=== PATIENT | male | born 1960 | race Caucasian/White ===

== ENCOUNTER 2018-03-20 11:48 | Emergency (ER) | payer BC ==
[2018-03-20 13:25] LABS: Absolute Lymphocytes (CBC) 0.6 K/uL (0.7-4.9); Absolute Monocytes 0.6 K/uL (0.1-1.3); Absolute Neutrophil 2.1 K/uL (1.8-8.0); Basophils % 0.7 % (0-1.3); Eosinophils % 5.3 % (0-4.4); Hematocrit 38.2 % (39.6-49.0); Lymphocytes % 16.9 % (15.3-44.8); MCH 32.6 pg (27.0-35.0); MCV 97.8 fL (80-100); MPV 9.5 fL (7.6-11.3); Monocytes % 16.1 % (3.3-12.3); RBC Red Blood Cell Count 3.91 M/uL (4.33-5.43)
[2018-03-20 13:50] LABS: Albumin 2.7 g/dL (3.4-5.0); Bilirubin Total 0.5 mg/dL (0.2-1.0); Potassium 3.9 mmol/L (3.5-5.1)
--- NOTE | 2018-03-20 13:52 | RAD REPORT ---
EXAM DESCRIPTION: RAD - Foot Left 3 View - 03/20/2018 1:38 pm CLINICAL HISTORY: Left Foot pain FINDINGS: A lucency is present within the second proximal phalanx suspicious for a nondisplaced frac ture. No dislocation is noted. The bones are osteoporotic
[2018-03-20 14:09] LABS: Blood Morphology Comment NOT SEEN (NOT SEEN); Platelet Estimate DECR; Urine White Blood Cell Casts OK
--- NOTE | 2018-03-20 14:53 | ER ---
Nurse's Notes [facility] Name: Vidal Monson Age: 57 yrs Sex: Male : 1960 Arrival Date: 03/20/2018 Time: 11:52 Bed 14 Private MD: Elmer Flynn Diagnosis: Left 4th proximal toe fracture Presentation: 03/20 11:54 Presenting complaint: Patient states: left 2nd toe is "purple" started yesterday. c/o sv left foot swelling. Pt reports he went back to work after 4 months and was wearing steel toe boots. Transition of care: patient was not received from another setting of care. Onset of symptoms was March 19, 2018. Risk Assessment: Do you want to hurt yourself or someone else? Patient reports no desire to harm self or others. Care prior to arrival: None. 11:54 Method Of Arrival: Ambulatory sv 11:54 Acuity: JO 3 sv 14:26 Initial Sepsis Screen: Does the patient meet any 2 criteria? No. Patient's initial em sepsis screen is negative. Does the patient have a suspected source of infection? No. Patient's initial sepsis screen is negative. Historical: - Allergies: 11:58 tramadol; sv - Home Meds: 11:58 Lyrica Oral [Active]; Insulin: Lantus Sub-Q [Active]; hydromorphone 2 mg Oral tab 1 tab sv every 6 hours [Active]; valsartan 160 mg oral tab 1 tab once daily [Active]; 11:59 Celebrex Oral [Active]; Protonix Oral [Active]; sv - PMHx: 11:58 liver cancer; Diabetes - IDDM; sv 11:59 GERD; sv - PSHx: 11:58 mass removed from abdomen; sv - Immunization history:: Adult Immunizations up to date. - Social history:: Smoking status: Patient/guardian denies using tobacco, the patient reports quitting approximately 4 years ago. - Ebola Screening: : No symptoms or risks identified at this time. Screenin:17 Abuse screen: Denies threats or abuse. Nutritional screening: No deficits noted. em Tuberculosis screening: No symptoms or risk factors identified. Fall Risk None identified. Assessment: 12:27 General: Appears in no apparent distress. comfortable, Behavior is calm, cooperative. em Pain: Complains of pain in plantar aspect of left second toe Pain currently is 5 out of 10 on a pain scale. Neuro: Level of Consciousness is awake, alert, obeys commands, Oriented to person, place, time, situation. Cardiovascular: Capillary refill < 3 seconds Patient's skin is warm and dry. Respiratory: Airway is patent Respiratory effort is even, unlabored, Respiratory pattern is regular, symmetrical. GI: No signs and/or symptoms were reported involving the gastrointestinal system. : No signs and/or symptoms were reported regarding the genitourinary system. EENT: No signs and/or symptoms were reported regarding the EENT system. Derm: Skin is intact, Skin is pale. Musculoskeletal: Range of motion: intact in all extremities, Swelling present in left second toe. 12:30 Reassessment: Patient appears in no apparent distress at this time. I agree with the iw above assessment by Elijah Reyes LVN. 13:25 Reassessment: Patient appears in no apparent distress at this time. Patient and/or em family updated on plan of care and expected duration. Pain level reassessed. Patient is alert, oriented x 3, equal unlabored respirations, skin warm/dry/pink. 14:54 Reassessment: Patient appears in no apparent distress at this time. Patient and/or em family updated on plan of care and expected duration. Pain level reassessed. Patient is alert, oriented x 3, equal unlabored respirations, skin warm/dry/pink. Patient states symptoms have improved. Vital Signs: 11:59 BP 155 / 105; Pulse 46; Resp 18; Temp 97.9; Pulse Ox 95% on R/A; Weight 115.21 kg; sv Height 6 ft. 1 in. (185.42 cm); Pain 5/10; 12:50 BP 145 / 75; Pulse 78; Resp 18; Pulse Ox 95% on R/A; em 14:28 BP 170 / 92; Pulse 87; Resp 16; Pulse Ox 97% on R/A; Pain 5/10; em 11:59 Body Mass Index 33.51 (115.21 kg, 185.42 cm) sv ED Course: 11:52 Patient arrived in ED. mr 11:52 Elmer Flynn MD is Private Physician. mr 11:56 Triage completed. sv 12:00 Arm band placed on left wrist. sv 12:13 Tee Kathleen PA is PHCP. jmm 12:13 Mart Barros MD is Attending Physician. [facility] 13:17 Elijah Reyes LVN is Primary Nurse. em 13:18 Patient has correct armband on for positive identification. Placed in gown. Bed in low em position. Call light in reach. Side rails up X 1. Adult w/ patient. 13:18 Initial lab(s) drawn, by me, sent to lab. Inserted saline lock: 20 gauge in left em forearm, using aseptic technique. Blood collected. 13:37 X-ray completed. Portable x-ray completed in exam room. Patient tolerated procedure ml well. 13:39 Foot Left 3 View XRAY In Process Unspecified. EDMS 14:52 Elmer Flynn MD is Referral Physician. [facility] 14:55 No provider procedures requiring assistance completed. em 15:05 IV discontinued, intact, bleeding controlled, No redness/swelling at site. Pressure em dressing applied. Administered Medications: No medications were administered Outcome: 14:53 Discharge ordered by MD. m 15:05 Discharged to home ambulatory, with family. em 15:05 Condition: good 15:05 Discharge instructions given to patient, family, Instructed on discharge instructions, follow up and referral plans. medication usage, Demonstrated understanding of instructions, follow-up care, medications, Prescriptions given X 1. 15:06 Patient left the ED. em Signatures: Dispatcher [employer] Fabiola Escalante, RN Tee Lopez PA PA jmm Rivera, Maria mr Elijah Reyes LVN LVN em Erin Jaeger, Radha Kahn RN
--- NOTE | 2018-03-20 14:54 | EDPHYS ---
Physician Documentation [facility] Name: Vidal Monson Age: 57 yrs Sex: Male : 1960 Arrival Date: 03/20/2018 Time: 11:52 Bed 14 Private MD: Elmer Flynn ED Physician Mart Barors HPI: 03/20 14:04 This 57 yrs old Male presents to ER via Ambulatory with complaints of Feet jmm Swelling. 14:04 The complaints affect the plantar aspect of left second toe. jmm 14:04 Onset: The symptoms/episode began/occurred today. Modifying factors: The symptoms are jmm alleviated by nothing, the symptoms are aggravated by nothing. Associated signs and symptoms: Pertinent negatives: fever. This is a 57 year old male with a history of liver cancer and DM that presents to the ED with swelling and redness to the left 2nd toe. Patient states that he worked in [employer] yesterday. Patient denies known injury but states that his feet are numb from preexisting neuropathy. The patient denies fever. The patient is currently being treated with immunotherapy for Liver Cancer. Most recent dose was this past Friday. Patient has no other complaints. . Historical: - Allergies: 11:58 tramadol; sv - Home Meds: 11:58 Lyrica Oral [Active]; Insulin: Lantus Sub-Q [Active]; hydromorphone 2 mg Oral tab 1 tab sv every 6 hours [Active]; valsartan 160 mg oral tab 1 tab once daily [Active]; 11:59 Celebrex Oral [Active]; Protonix Oral [Active]; sv - PMHx: 11:58 liver cancer; Diabetes - IDDM; sv 11:59 GERD; sv - PSHx: 11:58 mass removed from abdomen; sv - Immunization history:: Adult Immunizations up to date. - Social history:: Smoking status: Patient/guardian denies using tobacco, the patient reports quitting approximately 4 years ago. - Ebola Screening: : No symptoms or risks identified at this time. ROS: 14:04 Constitutional: Negative for fever, chills, and weight loss, Cardiovascular: Negative jmm for chest pain, palpitations, and edema, Respiratory: Negative for shortness of breath, cough, wheezing, and pleuritic chest pain, Abdomen/GI: Negative for abdominal pain, nausea, vomiting, diarrhea, and constipation, Back: Negative for injury and pain. 14:04 MS/extremity: Positive for erythema. 14:04 Skin: Positive for erythema. 14:04 Neuro: Negative for weakness. 14:04 All other systems are negative. Exam: 14:04 Constitutional: This is a well developed, well nourished patient who is awake, alert, jmm and in no acute distress. 14:04 Cardiovascular: Rate: normal. 14:04 Respiratory: the patient does not display signs of respiratory distress, Respirations: normal. 14:04 Abdomen/GI: Inspection: abdomen appears normal. 14:04 Back: ROM is normal. 14:04 Musculoskeletal/extremity: ROM: intact in all extremities, erythema noted to the left 2nd toe with ecchymosis noted at the base. < 2 sec dist cap refill appreciated, full dorsalis pedis pulse, NVI. 14:04 Skin: erythema is noted to the left 2nd toe. 14:04 Neuro: Orientation: is normal, Mentation: is normal, Memory: is normal. 14:04 Psych: Behavior/mood is pleasant, cooperative. Vital Signs: 11:59 BP 155 / 105; Pulse 46; Resp 18; Temp 97.9; Pulse Ox 95% on R/A; Weight 115.21 kg; sv Height 6 ft. 1 in. (185.42 cm); Pain 5/10; 12:50 BP 145 / 75; Pulse 78; Resp 18; Pulse Ox 95% on R/A; em 14:28 BP 170 / 92; Pulse 87; Resp 16; Pulse Ox 97% on R/A; Pain 5/10; em 11:59 Body Mass Index 33.51 (115.21 kg, 185.42 cm) sv Procedures: 14:04 Splinting: Splint applied to left foot using orthroshoe. applied by nurse. Examined by santo me, post splint application: neurovascular intact, 2+ distal pulses palpable, brisk capillary refill noted, Patient tolerated well. MDM: 12:56 Patient medically screened. [facility] 14:04 Data reviewed: vital signs, nurses notes, lab test result(s). [facility] 14:04 Counseling: I had a detailed discussion with the patient and/or guardian regarding: the [facility] historical points, exam findings, and any diagnostic results supporting the discharge/admit diagnosis, the presence of at least one elevated blood pressure reading (>120/80) during this emergency department visit, lab results, radiology results, to return to the emergency department if symptoms worsen or persist or if there are any questions or concerns that arise at home. ED course: Erythema and ecchymosis most likely due to acute fracture. Due to the patient hx of DM, patient will treated with antibiotic with strict return precautions. . 03/20 13:01 Order name: CBC with Diff; Complete Time: 14:14 [facility] 03/20 13:01 Order name: CMP; Complete Time: 13:52 [facility] 03/20 13:01 Order name: Foot Left 3 View XRAY; Complete Time: 13:53 [facility] 03/20 13:30 Order name: CBC Smear Scan; Complete Time: 14:14 [facility] 03/20 13:54 Order name: Splint; Complete Time: 14:09 [facility] 03/20 14:06 Order name: Ortho shoe; Complete Time: 14:54 [facility] Administered Medications: No medications were administered Disposition: 16:50 Co-signature as Attending Physician, Mart Barros MD. rn Disposition: 03/20/18 14:53 Discharged to Home. Impression: Left 4th proximal toe fracture. - Condition is Stable. - Discharge Instructions: Toe Fracture. - Prescriptions for Bactrim DS 800- 160 mg Oral Tablet - take 1 tablet by ORAL route every 12 hours for 10 days; 20 tablet. - Work release form, Medication Reconciliation Form, Thank You Letter, Antibiotic Education, Prescription Opioid Use form. - Follow up: Elmer Flynn MD; When: 2 - 3 days; Reason: Continuance of care. Signatures: Dispatcher [employer] Fabiola Escalante, RN RN Tee Workman PA PA [facility] Elijah Reyes, LEGAL INTERN LEGAL INTERN Mart Christine MD MD tele rn: (The following items were deleted from the chart) 15:06 14:53 03/20/2018 14:53 Discharged to Home. Impression: Left 4th proximal toe fracture. em Condition is Stable. Forms are Medication Reconciliation Form, Thank You Letter, Antibiotic Education, Prescription Opioid Use. Follow up: Elmer Flynn; When: 2 - 3 days; Reason: Continuance of care. [facility]
== END 2018-03-20 15:06 | disposition home or self-care (01) ==
LOC: ER 11:48
DX: S92.515A Nondisplaced fracture of proximal phalanx of left lesser toe(s), initial encounter for closed fracture (principal); X58.XXXA Exposure to other specified factors, initial encounter; Y93.9 Activity, unspecified; Y92.89 Other specified places as the place of occurrence of the external cause; Z79.4 Long term (current) use of insulin; Z85.05 Personal history of malignant neoplasm of liver; Z88.6 Allergy status to analgesic agent; E11.9 Type 2 diabetes mellitus without complications
CPT/HCPCS: 36415; 80053; 85025; 99284

== ENCOUNTER 2018-06-02 16:17 | Emergency (ER) | payer BC ==
--- OUTSIDE RECORDS SUMMARY | 2018-06-02 16:18 | XMS REPORT | Clinical Summary ---
:1960 Author Organization [facility] Address [address] [place] [address] Care Team Providers Name Role Phone Asked, No Pcp Primary Care Provider Unavailable Allergies No Known Allergies Current Medications Prescription Sig. Disp. Refills Start Date End Date Status pregabalin (LYRICA) 300 Take 300 mg by Active MG capsule mouth 3 (three) times a day. valsartan (DIOVAN) 160 MG Take 160 mg by Active tablet mouth daily. insulin GLARGINE (LANTUS) Inject 45 Units Active 100 unit/mL injection under the skin 2 (vial) (two) times a day. omega-3 acid ethyl esters Take 2 g by mouth 2 Active (LOVAZA) 1 gram capsule (two) times a day. Active Problems Problem Noted Date Hepatocellular carcinoma 12/02/2016 Non-alcoholic cirrhosis 12/02/2016 Chronic hepatitis C 12/02/2016 Social History Tobacco Use Types Packs/Day Years Used Date Former Smoker Quit: 2013 Sex Assigned at Date Recorded Not on file Last Filed Vital Signs Not on file Plan of Treatment Health Maintenance Due Date Last Done Comments COLON CANCER SCREENING 2010 SHINGRIX VACCINE (#1) 2010 INFLUENZA VACCINE 04/29/2018 Results Not on fileafter 06/01/2017 Insurance Payer Benefit Plan / Group Subscriber ID Type Phone Address BCBS BCBS OUT OF STATE xxxxxxxxxxxxxxx PPO Home: [address] [phone] [place], [place] [id number] [facility] [employer] Self 1960 Home: [address] [phone] [place] [id number]
[2018-06-02 18:31] LABS: Absolute Lymphocytes (CBC) 0.5 K/uL (0.7-4.9); Absolute Monocytes 0.5 K/uL (0.1-1.3); Absolute Neutrophil 1.6 K/uL (1.8-8.0); Basophils % 0.3 % (0-1.3); Eosinophils % 2.5 % (0-4.4); Hematocrit 41.6 % (39.6-49.0); Lymphocytes % 19.4 % (15.3-44.8); MCH 33.7 pg (27.0-35.0); MCV 98.2 fL (80-100); MPV 9.9 fL (7.6-11.3); Monocytes % 17.7 % (3.3-12.3); RBC Red Blood Cell Count 4.23 M/uL (4.33-5.43)
[2018-06-02 18:49] LABS: Albumin 2.6 g/dL (3.4-5.0); Bilirubin Direct 0.7 mg/dL (0-0.2); Bilirubin Total 1.6 mg/dL (0.2-1.0); Potassium 4.4 mmol/L (3.5-5.1); Protein, Total 7.3 g/dL (6.4-8.2)
[2018-06-02] MEDS ORDERED: LACTULOSE 20 GM/30 ML UCUP ONE ×2 (19:33→19:41)
--- NOTE | 2018-06-02 19:56 | ER ---
Nurse's Notes [facility] Name: Vidal Monson Age: 57 yrs Sex: Male : 1960 Arrival Date: 06/02/2018 Time: 16:20 Bed 16 Private MD: Elmer Flynn Diagnosis: Hepatic Encephaolopathy Presentation: 06/02 16:45 Presenting complaint: states: " He has been really lethargic today and he has been ph throwing up." Reports hx of hep C and liver cancer, reports that he was seen by Dr Romero on Friday and had high ammonia levels, was prescribed lactulose. Transition of care: patient was not received from another setting of care. Onset of symptoms was June 02, 2018. Risk Assessment: Do you want to hurt yourself or someone else? Patient reports no desire to harm self or others. Initial Sepsis Screen: Does the patient meet any 2 criteria? No. Patient's initial sepsis screen is negative. Care prior to arrival: None. 16:45 Method Of Arrival: Ambulatory ph 16:45 Acuity: JO 3 ph 20:28 Initial Sepsis Screen: Does the patient have a suspected source of infection? Yes:. ao Triage Assessment: 20:29 Pain: Denies pain. ao Historical: - Allergies: 16:48 tramadol; ph - PMHx: 16:48 Diabetes - IDDM; GERD; liver cancer; Hepatitis; ph - PSHx: 16:48 mass removed from abdomen; ph - Immunization history:: Adult Immunizations up to date. - Ebola Screening: : Patient negative for fever greater than or equal to 101.5 degrees Fahrenheit, and additional compatible Ebola Virus Disease symptoms Patient denies exposure to infectious person Patient denies travel to an Ebola-affected area in the 21 days before illness onset. - Social history:: Smoking status: unknown. Screenin:45 Abuse screen: Denies threats or abuse. Nutritional screening: No deficits noted. rb1 Tuberculosis screening: No symptoms or risk factors identified. Fall Risk No fall in past 12 months (0 pts). Secondary diagnosis (15 points) TIA, No IV (0 pts). Ambulatory Aid- None/Bed Rest/Nurse Assist (0 pts). Gait- Normal/Bed Rest/Wheelchair (0 pts) Mental Status- Overestimates/Forgets Limitations (15 pts.). Total Escobar Fall Scale indicates Low Risk Score (25-44 pts). Fall prevention measures have been instituted. Side Rails Up X 2 Placed close to Nursing Station 1:1 attendant Assigned to Pt. Frequent Obs/Assesments occuring Family Present and informed to notify staff if they need to leave bedside As available Patient and Family Educated on Fall Prevention Program and strategies. Assessment: 16:45 General: Appears in no apparent distress. comfortable, Behavior is calm, cooperative, rb1 Reports fever for > 3 days. Neuro: Level of Consciousness is awake, alert, obeys commands, confused, lethargic, Oriented to person, place, time, situation. Neuro: Tremors noted in bilateral hands. Cardiovascular: Capillary refill < 3 seconds is sluggish in bilateral fingers. Respiratory: Airway is patent Respiratory effort is even, unlabored, Respiratory pattern is regular, symmetrical. GI: Abdomen is round distended, Reports nausea, vomiting, since Friday. : No signs and/or symptoms were reported regarding the genitourinary system. Derm: Skin is pink, warm \\T\\ dry. Musculoskeletal: Range of motion: intact in all extremities. 17:40 Reassessment: Patient appears in no apparent distress at this time. No changes from rb1 previously documented assessment. 18:00 Reassessment: Sydnee from Lab came to draw the labs but was unable to get enough for rb1 the Ammonia level. She stated, "The pt. said that I was hurting him, so I had to stop. I will send someone else to get the ammonia level.". 18:38 Reassessment: Patient appears in no apparent distress at this time. Patient and/or rb1 family updated on plan of care and expected duration. Pain level reassessed. Patient is alert, oriented x 3, equal unlabored respirations, skin warm/dry/pink. Called lab and spoke to Sandhya and asked if she or someone else could come and draw the ammonia. She stated, "I will be there in a few minutes.". Vital Signs: 16:48 BP 161 / 89; Pulse 89; Resp 16; Temp 98.6(TE); Pulse Ox 100% on R/A; Weight 115.67 kg; ph Height 6 ft. 1 in. (185.42 cm); 17:48 BP 164 / 94; Pulse 84; Resp 17; Pulse Ox 98% on R/A; Pain 0/10; rb1 19:09 BP 134 / 76; Pulse 73; Resp 16; Pulse Ox 98% on R/A; mt 16:48 Body Mass Index 33.64 (115.67 kg, 185.42 cm) ph ED Course: 16:20 Patient arrived in ED. mr 16:20 Elmer Flynn MD is Private Physician. mr 16:39 David Lacey PA is PHCP. jr8 16:39 Osman Brock MD is Attending Physician. jr8 16:41 Charity Reed, RN is Primary Nurse. rb1 16:45 Patient has correct armband on for positive identification. Placed in gown. Bed in low rb1 position. Call light in reach. Side rails up X 1. Pulse ox on. NIBP on. Warm blanket given. 16:47 Triage completed. ph 16:49 Arm band placed on Patient placed in an exam room. ph 17:50 Inserted saline lock: 22 gauge in left wrist, using aseptic technique. ,using aseptic ss technique. unable to obtain labs. Notified Sydnee business and services instructor who states she will come draw labs at this time. 19:00 GERTRUDE Hopkins. rb1 19:55 Elmer Flynn MD is Referral Physician. jr8 20:27 No provider procedures requiring assistance completed. IV discontinued, intact, ao bleeding controlled, No redness/swelling at site. Pressure dressing applied. Administered Medications: 19:39 Drug: Lactulose 30 grams Volume: 45 ml; Route: PO; ao 20:30 Follow up: Response: No adverse reaction ao Outcome: 19:56 Discharge ordered by . jr8 20:28 Discharged to home ambulatory. ao 20:28 Condition: stable 20:28 Discharge instructions given to patient, Instructed on discharge instructions, follow up and referral plans. Demonstrated understanding of instructions, follow-up care, medications. 20:29 Patient left the ED. ao Signatures: Kristine Martinez mr RogersTosin RN RN David Lacey PA PA jr8 Porsche Wills RN RN Charity Reed, GERTRUDE LOREDO [facility] Sandeep Mcqueen RN RN ao Thompson, [place] Corrections: (The following items were deleted from the chart) 19:14 19:09 Pulse 73bpm; Resp 16bpm; Pulse Ox 98% RA; mt mt
--- NOTE | 2018-06-02 19:56 | EDPHYS ---
Physician Documentation [facility] Name: Vidal Monson Age: 57 yrs Sex: Male : 1960 Arrival Date: 06/02/2018 Time: 16:20 Bed 16 Private MD: Elmer Flynn ED Physician Osman Brock HPI: 06/02 18:53 This 57 yrs old Male presents to ER via Ambulatory with complaints of Fever, jr8 Vomiting. 18:53 The patient presents to the emergency department with nausea, vomiting. Onset: The jr8 symptoms/episode began/occurred gradually, 1 day(s) ago. Possible causes: unknown. The symptoms are aggravated by nothing. The symptoms are alleviated by nothing. Associated signs and symptoms: Pertinent positives: fatigue and confusion. Severity of symptoms: At their worst the symptoms were mild in the emergency department the symptoms are unchanged. The patient has experienced a previous episode. The patient has not recently seen a physician. History of cirrhosis of the liver and hepatocellular carcinoma. Currently undergoing treatment for cancer. History of elevated ammonia secondary to condition. Think he may have elevated ammonia again . Historical: - Allergies: 16:48 tramadol; ph - PMHx: 16:48 Diabetes - IDDM; GERD; liver cancer; Hepatitis; ph - PSHx: 16:48 mass removed from abdomen; ph - Immunization history:: Adult Immunizations up to date. - Ebola Screening: : Patient negative for fever greater than or equal to 101.5 degrees Fahrenheit, and additional compatible Ebola Virus Disease symptoms Patient denies exposure to infectious person Patient denies travel to an Ebola-affected area in the 21 days before illness onset. - Social history:: Smoking status: unknown. ROS: 18:53 Eyes: Negative for injury, pain, redness, and discharge, ENT: Negative for injury, jr8 pain, and discharge, Neck: Negative for injury, pain, and swelling, Cardiovascular: Negative for chest pain, palpitations, and edema, Respiratory: Negative for shortness of breath, cough, wheezing, and pleuritic chest pain, Back: Negative for injury and pain, MS/Extremity: Negative for injury and deformity, Skin: Negative for injury, rash, and discoloration, Neuro: Negative for headache, weakness, numbness, tingling, and seizure. 18:53 Constitutional: Positive for fatigue, malaise. 18:53 Abdomen/GI: Positive for nausea and vomiting, Negative for abdominal pain, diarrhea, abdominal cramps, abdominal distension, anorexia, dysphagia, hematemesis, black/tarry stool, rectal pain, rectal bleeding, bowel incontinence, flatulence. Exam: 18:53 Eyes: Pupils equal round and reactive to light, extra-ocular motions intact. Lids and jr8 lashes normal. Conjunctiva and sclera are non-icteric and not injected. Cornea within normal limits. Periorbital areas with no swelling, redness, or edema. ENT: Nares patent. No nasal discharge, no septal abnormalities noted. Tympanic membranes are normal and external auditory canals are clear. Oropharynx with no redness, swelling, or masses, exudates, or evidence of obstruction, uvula midline. Mucous membranes moist. Neck: Trachea midline, no thyromegaly or masses palpated, and no cervical lymphadenopathy. Supple, full range of motion without nuchal rigidity, or vertebral point tenderness. No Meningismus. Cardiovascular: Regular rate and rhythm with a normal S1 and S2. No gallops, murmurs, or rubs. Normal PMI, no JVD. No pulse deficits. Respiratory: Lungs have equal breath sounds bilaterally, clear to auscultation and percussion. No rales, rhonchi or wheezes noted. No increased work of breathing, no retractions or nasal flaring. Abdomen/GI: Soft, non-tender, with normal bowel sounds. No distension or tympany. No guarding or rebound. No evidence of tenderness throughout. Back: No spinal tenderness. No costovertebral tenderness. Full range of motion. Skin: Warm, dry with normal turgor. Normal color with no rashes, no lesions, and no evidence of cellulitis. MS/ Extremity: Pulses equal, no cyanosis. Neurovascular intact. Full, normal range of motion. Neuro: Awake and alert, GCS 15, oriented to person, place, time, and situation. Cranial nerves II-XII grossly intact. Motor strength 5/5 in all extremities. Sensory grossly intact. Cerebellar exam normal. Normal gait. Resting tremor present in both arms Vital Signs: 16:48 BP 161 / 89; Pulse 89; Resp 16; Temp 98.6(TE); Pulse Ox 100% on R/A; Weight 115.67 kg; ph Height 6 ft. 1 in. (185.42 cm); 17:48 BP 164 / 94; Pulse 84; Resp 17; Pulse Ox 98% on R/A; Pain 0/10; rb1 19:09 BP 134 / 76; Pulse 73; Resp 16; Pulse Ox 98% on R/A; mt 16:48 Body Mass Index 33.64 (115.67 kg, 185.42 cm) ph MDM: 16:39 Patient medically screened. jr8 19:54 Data reviewed: vital signs, nurses notes, lab test result(s), and as a result, I will jr8 discharge patient. Data interpreted: Pulse oximetry: on room air is 98 %. Interpretation: normal. Counseling: I had a detailed discussion with the patient and/or guardian regarding: the historical points, exam findings, and any diagnostic results supporting the discharge/admit diagnosis, lab results, the need for outpatient follow up, a family practitioner, to return to the emergency department if symptoms worsen or persist or if there are any questions or concerns that arise at home. ED course: Patient has mild elevated Ammonia. Otherwise labs about baseline for patient. Patient eating and drinking while in exam room. Able to keep all food and drink down. No nausea/vomiting, or abdominal pain. Lactulose given here. To continue regimen at home. If worse to come back for further evaluation . 06/02 17:07 Order name: Basic Metabolic Panel; Complete Time: 18:52 06/02 17:07 Order name: CBC with Diff; Complete Time: 18:41 06/02 17:07 Order name: Creatinine for Radiology; Complete Time: 18:59 rust 06/02 17:07 Order name: Hepatic Function; Complete Time: 18:52 rust 06/02 17:07 Order name: Lipase; Complete Time: 18:52 rust 06/02 17:07 Order name: AMMONIA; Complete Time: 19:20 06/02 17:07 Order name: IV Saline Lock; Complete Time: 18:06 rust 06/02 17:07 Order name: Labs collected and sent; Complete Time: 19:04 Administered Medications: 19:39 Drug: Lactulose 30 grams Volume: 45 ml; Route: PO; ao 20:30 Follow up: Response: No adverse reaction ao Disposition: 06/03 07:21 Co-signature as Attending Physician, Osman Brock MD I agree with the assessment and [facility] plan of care. Disposition: 06/02/18 19:56 Discharged to Home. Impression: Hepatic Encephaolopathy . - Condition is Stable. - Discharge Instructions: Hepatic Encephalopathy. - Medication Reconciliation Form, Thank You Letter, Antibiotic Education, Prescription Opioid Use form. - Follow up: Elmer Flynn MD; When: 1 - 2 days; Reason: If symptoms return, Recheck today's complaints, Continuance of care, Re-evaluation by your physician. - Problem is new. - Symptoms have improved. Signatures: Dispatcher [employer] EDMS Osman Brock MD MD cha Roszak, Josh, PA PA jr8 Porsche Wills RN RN Charity Reed, RN RN rb1 Sandeep Mcqueen RN RN ao Corrections: (The following items were deleted from the chart) 06/02 20:29 19:56 06/02/2018 19:56 Discharged to Home. Impression: Hepatic Encephaolopathy . ao Condition is Stable. Forms are Medication Reconciliation Form, Thank You Letter, Antibiotic Education, Prescription Opioid Use. Follow up: Elmer Flynn; When: 1 - 2 days; Reason: If symptoms return, Recheck today's complaints, Continuance of care, Re-evaluation by your physician. Problem is new. Symptoms have improved. jr8
== END 2018-06-02 20:29 | disposition home or self-care (01) ==
LOC: ER 16:17
DX: K72.90 Hepatic failure, unspecified without coma (principal); K74.60 Unspecified cirrhosis of liver; C22.0 Liver cell carcinoma; Z88.6 Allergy status to analgesic agent
CPT/HCPCS: 36415; 80048; 80076; 82140; 83690; 85025; 99283

== ENCOUNTER 2018-06-21 11:57 | Inpatient (IN) | payer BC ==
--- NOTE | 2018-06-21 13:27 | RAD REPORT ---
EXAM DESCRIPTION: RAD - Chest Single View - 06/21/2018 1:16 pm CLINICAL HISTORY: confusion Chest pain. COMPARISON: Ribs Right dated 04/21/2018 FINDINGS: Portable technique limits examination quality. Interstitial markings are mildly prominent. The heart is upper limit normal size. No displaced fractu res.Right-sided port catheter tip in the SVC.
[2018-06-21 13:54] LABS: Absolute Lymphocytes (CBC) 0.7 K/uL (0.7-4.9); Absolute Monocytes 0.5 K/uL (0.1-1.3); Basophils % 0.4 % (0-1.3); Eosinophils % 3.2 % (0-4.4); Hematocrit 36.9 % (39.6-49.0); Lymphocytes % 20.4 % (15.3-44.8); MCH 34.8 pg (27.0-35.0); MCV 99.5 fL (80-100); MPV 11.1 fL (7.6-11.3); Monocytes % 14.6 % (3.3-12.3); Protime INR 1.14; RBC Red Blood Cell Count 3.71 M/uL (4.33-5.43)
[2018-06-21 13:57] LABS: Albumin 2.6 g/dL (3.4-5.0); Bilirubin Direct 0.4 mg/dL (0-0.2); Bilirubin Total 0.8 mg/dL (0.2-1.0); Magnesium 2.2 mg/dL (1.8-2.4); Protein, Total 7.3 g/dL (6.4-8.2); Troponin (Emerg Dept Use Only) 0.04 ng/mL (0.0-0.045)
--- NOTE | 2018-06-21 14:15 | EDPHYS ---
Physician Documentation [facility] Name: Vidal Monson Age: 57 yrs Sex: Male : 1960 Arrival Date: 06/21/2018 Time: 11:58 Bed 6 Private MD: Out, [facility] ED Physician Osman Brock HPI: 06/21 12:10 This 57 yrs old Male presents to ER via Ambulatory with complaints of Altered [facility] Mental Status. 12:10 The patient presents with confusion. Onset: The symptoms/episode began/occurred this [facility] morning. Possible causes: elevated ammonia. Associated signs and symptoms: Pertinent negatives: abdominal pain, chest pain. This is a 57 year old male with a history DM, liver cancer, cirrhosis, that presents to the ED with confusion beginning this morning. Patient has a history of hepatic encephalopathy and currently takes 5 ml of lactulose BID. states he is receiving treatment for liver cancer in [place]. Patient denies chest pain or shortness of breath. . Historical: - Allergies: 12:03 tramadol; la1 - Home Meds: 16:53 Lactulose Oral [Active]; Insulin: Regular Sub-Q [Active]; sg - PMHx: 12:03 Diabetes - IDDM; GERD; Hepatitis; liver cancer; la1 - PSHx: 16:53 mass removed from abdomen; port a cath- R upper Chest; sg - Immunization history:: Adult Immunizations up to date. - Social history:: Smoking status: Patient/guardian denies using tobacco. - Ebola Screening: : No symptoms or risks identified at this time. ROS: 15:35 Constitutional: Negative for fever, chills, and weight loss, Cardiovascular: Negative jmm for chest pain, palpitations, and edema, Respiratory: Negative for shortness of breath, cough, wheezing, and pleuritic chest pain. 15:35 Neuro: Positive for confusion. 15:35 All other systems are negative. Exam: 15:35 Constitutional: This is a well developed, well nourished patient who is awake, alert, jmm and in no acute distress. Head/Face: atraumatic. 15:35 Cardiovascular: Rate: normal, Rhythm: regular. 15:35 Respiratory: the patient does not display signs of respiratory distress, Respirations: normal, Breath sounds: are clear throughout. 15:35 Abdomen/GI: Inspection: distension, Bowel sounds: normal, Palpation: abdomen is soft and non-tender, in all quadrants. 15:35 Back: ROM is normal. 15:35 Musculoskeletal/extremity: ROM: intact in all extremities. 15:35 Skin: Appearance: Color: normal in color. 15:35 Neuro: Orientation: to person. 15:35 Psych: Behavior/mood is pleasant, cooperative. Vital Signs: 12:03 BP 165 / 111; Pulse 96; Resp 18; Temp 97.6; Pulse Ox 99% on R/A; Weight 102.06 kg; la1 Height 6 ft. 1 in. (185.42 cm); 14:59 BP 147 / 91; Pulse 88; Resp 16; Pulse Ox 99% on R/A; Pain 0/10; sg 16:53 BP 142 / 88; Pulse 87; Resp 17 S; Pulse Ox 100% on R/A; Pain 0/10; sg 12:03 Body Mass Index 29.68 (102.06 kg, 185.42 cm) la1 MDM: 12:10 Patient medically screened. [facility] 14:12 Data reviewed: vital signs, nurses notes. Counseling: I had a detailed discussion with deanna the patient and/or guardian regarding: the historical points, exam findings, and any diagnostic results supporting the discharge/admit diagnosis, lab results, radiology results, the need for further work-up and treatment in the hospital. ED course: I discussed the patient with Dr. Lopez whom accepted admission. . 06/21 12:10 Order name: Basic Metabolic Panel; Complete Time: 14: [facility] 06/21 12:10 Order name: CBC with Diff [facility] 06/21 12:10 Order name: LFT's; Complete Time: 14:01 [facility] 06/21 12:10 Order name: Magnesium; Complete Time: 14:01 [facility] 06/21 12:10 Order name: NT PRO-BNP; Complete Time: 14:01 [facility] 06/21 12:10 Order name: PT-INR; Complete Time: 14:04 [facility] 06/21 12:10 Order name: Troponin (emerg Dept Use Only); Complete Time: 14:01 [facility] 06/21 12:10 Order name: XRAY Chest (1 view); Complete Time: 13:28 [facility] 06/21 12:10 Order name: EKG; Complete Time: 12:11 [facility] 06/21 12:12 Order name: AMMONIA; Complete Time: 14:01 06/21 12:12 Order name: AMMONIA [facility] 06/21 15:48 Order name: CT; Complete Time: 15:52 [facility] 06/21 16:41 Order name: CBC Smear Scan [facility] 06/21 12:10 Order name: Cardiac monitoring; Complete Time: 14:48 [facility] 06/21 12:10 Order name: EKG - Nurse/Tech; Complete Time: 14:48 [facility] 06/21 12:10 Order name: IV Saline Lock; Complete Time: 14:47 [facility] 06/21 12:10 Order name: Labs collected and sent; Complete Time: 14:47 [facility] 06/21 12:10 Order name: O2 Per Protocol; Complete Time: 14:47 [facility] 06/21 12:10 Order name: O2 Sat Monitoring; Complete Time: 14:47 [facility] Administered Medications: 14:20 Drug: Lactulose 30 grams Volume: 45 ml; Route: PO; sg Disposition: 06/22 07:09 Co-signature as Attending Physician, Osman Brock MD I agree with the assessment and [facility] plan of care. Disposition: 06/21/18 14:14 Hospitalization ordered by Jerad Lopez for Observation. Preliminary diagnosis are Encephalopathy, unspecified, Altered mental status, unspecified. - Bed requested for Telemetry/MedSurg (observation). - Status is Observation. sv - Condition is Stable. - Problem is an acute exacerbation. - Symptoms are unchanged. UTI on Admission? No Signatures: Dispatcher [employer] EDMA Fabiola Huynh RN RN Alo Romero RN RN sg Anderson, Corey, MD MD cha Mickail, Joel, PA PA Gayle West Lee RN RN la1 Corrections: (The following items were deleted from the chart) 06/21 15:39 12:10 This is a 57 year old male with a history . deanna motta 16:36 14:14 Hospitalization Ordered by Jerad Lopez MD for Observation. Preliminary sp diagnosis is Encephalopathy, unspecified; Altered mental status, unspecified. Bed requested for Telemetry/MedSurg (observation). Status is Observation. Condition is Stable. Problem is an acute exacerbation. Symptoms are unchanged. UTI on Admission? No. kalia 17:08 16:36 06/21/2018 14:14 Hospitalization Ordered by Jerad Lopez MD for Observation. sv Preliminary diagnosis is Encephalopathy, unspecified; Altered mental status, unspecified. Bed requested for Telemetry/MedSurg (observation). Status is Observation. Condition is Stable. Problem is an acute exacerbation. Symptoms are unchanged. UTI on Admission? No. sp
--- NOTE | 2018-06-21 14:15 | ER ---
Nurse's Notes [facility] Name: Vidal Monson Age: 57 yrs Sex: Male : 1960 Arrival Date: 06/21/2018 Time: 11:58 Bed 6 Private MD: Out, [facility] Diagnosis: Encephalopathy, unspecified;Altered mental status, unspecified Presentation: 06/21 12:02 Presenting complaint: states: When he woke up this morning he was very confused, la1 we think his ammonia is up again, hx of liver CA. Transition of care: patient was not received from another setting of care. Onset of symptoms was June 21, 2018. Risk Assessment: Do you want to hurt yourself or someone else? Patient reports no desire to harm self or others. Initial Sepsis Screen: Does the patient meet any 2 criteria? No. Patient's initial sepsis screen is negative. Does the patient have a suspected source of infection? No. Patient's initial sepsis screen is negative. Care prior to arrival: None. 12:02 Method Of Arrival: Ambulatory la1 12:02 Acuity: JO 2 la1 Historical: - Allergies: 12:03 tramadol; la1 - Home Meds: 16:53 Lactulose Oral [Active]; Insulin: Regular Sub-Q [Active]; sg - PMHx: 12:03 Diabetes - IDDM; GERD; Hepatitis; liver cancer; la1 - PSHx: 16:53 mass removed from abdomen; port a cath- R upper Chest; sg - Immunization history:: Adult Immunizations up to date. - Social history:: Smoking status: Patient/guardian denies using tobacco. - Ebola Screening: : No symptoms or risks identified at this time. Screenin:29 Abuse screen: Denies threats or abuse. Denies injuries from another. Nutritional sv screening: No deficits noted. Tuberculosis screening: No symptoms or risk factors identified. 13:40 The patient has not been NPO before screening. The patient is alert, able to follow sg commands. The patient does not exhibit slurred or garbled speech The patient is not exhibiting difficulty speaking. The patient does not exhibit difficulty understanding words. The patient is able to swallow own secretions with no drooling or need for suction. Patient tolerated one teaspoon of water. No drooling, immediate coughing, gurgling, or clearing of the throat was noted. The patient tolerated 90mL of water. No drooling, immediate coughing, gurgling, or clearing of the throat was noted. The patient passed the bedside swallow screening. Oral medications may be given as ordered. Contact Physician for further diet orders. Fall Risk None identified. Assessment: 12:05 General: Appears in no apparent distress. comfortable, well groomed, well developed, sg well nourished, Behavior is calm, cooperative, appropriate for age. Pain: Denies pain. Neuro: Level of Consciousness is awake, alert, obeys commands, Oriented to person, place, Direct Support Specialist are equal bilaterally Speech is normal, Facial symmetry appears normal. Cardiovascular: Capillary refill is brisk in bilateral fingers Patient's skin is warm and dry. Chest pain is denied. Respiratory: Airway is patent Respiratory effort is even, unlabored, Respiratory pattern is regular, symmetrical, Denies cough, shortness of breath labored breathing. GI: Abdomen is round non-distended, Reports normal bowel habits. : No signs and/or symptoms were reported regarding the genitourinary system. EENT: No signs and/or symptoms were reported regarding the EENT system. Derm: Skin is pink, warm \T\ dry. Musculoskeletal: No signs and/or symptoms reported regarding the musculoskeletal system. Vital Signs: 12:03 BP 165 / 111; Pulse 96; Resp 18; Temp 97.6; Pulse Ox 99% on R/A; Weight 102.06 kg; la1 Height 6 ft. 1 in. (185.42 cm); 14:59 BP 147 / 91; Pulse 88; Resp 16; Pulse Ox 99% on R/A; Pain 0/10; sg 16:53 BP 142 / 88; Pulse 87; Resp 17 S; Pulse Ox 100% on R/A; Pain 0/10; sg 12:03 Body Mass Index 29.68 (102.06 kg, 185.42 cm) la1 ED Course: 11:58 Patient arrived in ED. sb2 11:59 Out, of Town is Private Physician. sb2 12:03 Triage completed. la1 12:04 Arm band placed on left wrist. la1 12:10 Tee Kathleen PA is PHCP. deanna 12:10 Osman Brock MD is Attending Physician. jmm 12:55 Missed attempt(s): 20 gauge Smith needle to the right portacath. sv 13:00 Patient has correct armband on for positive identification. Placed in gown. Bed in low sv position. Side rails up X2. Adult w/ patient. Pulse ox on. NIBP on. Door closed. Warm blanket given. Head of bed elevated. 13:00 Accessed Port-a-Cath. using accessed w/ # 20 Smith needle, ,sterile technique, per hospital protocol. Clean \T\ dry. Dressing intact. Good blood return. Flushes easily. 13:16 X-ray completed. Portable x-ray completed in exam room. Patient tolerated procedure la2 well. 13:16 XRAY Chest (1 view) In Process Unspecified. EDMS 14:13 Jerad Lopez MD is Hospitalizing Provider. santo 14:46 Alo Romero, RN is Primary Nurse. sg 15:32 CT completed. Patient moved to CT via stretcher. Patient moved back from CT. cw1 16:56 No provider procedures requiring assistance completed. Patient admitted, IV remains in sg place. intact. Administered Medications: 14:20 Drug: Lactulose 30 grams Volume: 45 ml; Route: PO; sg Outcome: 14:14 Decision to Hospitalize by Provider. [facility] 16:55 Admitted to Med/surg accompanied by [facility], via wheelchair, room 230, with chart, Report sg called to Doug LOREDO 16:55 Condition: stable 16:55 Instructed on the need for admit, safety practices, Demonstrated understanding of instructions. 17:08 Patient left the ED. Signatures: Dispatcher [employer] Fabiola Escalante RN RN Alo Romero, GERTRUDE LOREDO Tee Kathleen PA PA Marleny Haney cw1 Stanley Donis RN RN la1 Ardoin, Leslie la2 Billeau, Sheri sb2
[2018-06-21] MEDS ORDERED: LACTULOSE 20 GM/30 ML UCUP ONE (14:20)
--- NOTE | 2018-06-21 14:57 | P.HP ---
Certification for Inpatient Patient admitted to: Observation With expected LOS: <2 Midnights Patient will require the following post-hospital care: None Practitioner: I am a practitioner with admitting privileges, knowledge of patient current condition, hospital course, and medical plan of care. Services: Services provided to patient in accordance with Admission requirements found in Title 42 Section 412.3 of the Code of Federal Regulations Patient History Date of Service: 06/21/18 Primary Care Provider: carri Reason for admission: Altered mental status History of Present Illness: Patient is 57 years of age has a history of liver cancer Corin flies to [place] of for immunotherapy according to the 80s progressively deteriorated over the past 6 weeks complaining of worsening abdominal distension patient was precipitated by a confusion disorientation he has had a paracentesis x2 last chemotherapy was this month he is really not doing well according to his no fever or chills are been compliant with therapy taking lactulose patient has some shortness of breath worse when as ascites no significant history of cardiopulmonary problems otherwise Allergies tramadol Allergy (Unverified 03/20/18 15:09) Unknown - Past Medical/Surgical History -: Diabetes -: GERD -: Hepatocellular cancer -: Hepatitis-C - Social History Smoking Status: Former smoker Alcohol use: No Place of Residence: Home Review of Systems General: Weakness Respiratory: Shortness of Breath Cardiovascular: Edema Gastrointestinal: Distention Neurological: Confusion Physical Examination - Vital Signs Temperature: 97.6 F Blood Pressure: 165/111 Pulse: 96 Respirations: 18 Pulse Ox (%): 99 (RA) - Physical Exam General: Alert, Oriented x1 HEENT: Atraumatic Neck: Supple Respiratory: Clear to auscultation bilaterally, Diminished Cardiovascular: Regular rate/rhythm, Edema Gastrointestinal: Normal bowel sounds, Distended Musculoskeletal: No clubbing Integumentary: No rashes, No breakdown - Studies Laboratory Data (last 24 hrs) 06/21/18 13:20: PT 13.5 H, INR 1.14 06/21/18 13:20: WBC 3.3 L, Hgb 12.9 L, Hct 36.9 L, Plt Count 72 L 06/21/18 13:20: Sodium 144, Potassium 4.0, BUN 31 H, Creatinine 1.60 H, Glucose 136 H, Magnesium 2.2, Total Bilirubin 0.8, AST 147 H, ALT 80 H, Alkaline Phosphatase 172 H Assessment and Plan - Problems (Diagnosis) (1) Altered mental status Current Visit: Yes Status: Acute Plan: Patient is 57 years of age with a history of a hepatocellular cancer the treated in [place] with immunotherapy admitted with worsening confusion shortness of breath abdominal distension former social drinker now quit drinking history of hepatitis-C former heavy smoker patient does take lactulose according to the he has been declining over the past 6 weeks no fever chills he has had paracentesis before labs read ammonia level elevated abnormal liver function tests mildly anemic plan to admit observational care start on IV fluids thymine this schedule for a paracentesis blood cultures empiric antibiotics for possible sepsis CT scan of the abdomen and pelvis with oral contrast Qualifiers: Altered mental status type: disorientation Qualified Code(s): R41.0 - Disorientation, unspecified - Advance Directives Does patient have a Living Will: No Does patient have a Durable POA for Healthcare: No
--- NOTE | 2018-06-21 15:47 | RAD REPORT ---
EXAM DESCRIPTION: CT - Abdomen Pelvis Wo Contrast - 06/21/2018 3:33 pm CLINICAL HISTORY: Abdominal pain. Liver carcinoma. COMPARISON: 07/20/2013 TECHNIQUE: CT imaging of the abdomen and pelvis was performed without contrast. Solid organ and vasc ular assessment is limited due to lack of IV contrast. All CT scans are performed using dose optimization technique as appropriate and may include automated exposure control or mA/KV adjustment according to patient size. FINDINGS: The lower lung chaparro are clear. Poorly defined hypodensity is seen in the right lobe of the liver measuring 8.2 x 6.0 cm. A vague pro tuberant slightly hyperdense mass type lesion is seen in the right lobe anterosuperiorly measuring 3. 0 x 2.9 cm. Full assessment is quite limited due to lack of contrast material. There is evidence of p revious intervention including chemoembolization as well as hepatic artery embolization.Spleen is nor mal. Stones are present in the gallbladder. The pancreas, adrenal glands and kidneys show no acute pr ocess. A cyst is present in the left lobe of the liver measuring 20 mm. Mild ascites is present. Sigmoid diverticulosis is present without diverticulitis. No bowel obstructi on. No abscess. The osseous structures are within normal limits. IMPRESSION: Mild ascites. Irregular liver lesion in the superior right lobe with evidence of multiple previous interventions. F ull details limited by lack of IV contrast. Cholelithiasis. Sigmoid diverticulosis without diverticulitis. A limited non-contrast examination was performed as detailed.
[2018-06-21 16:40] LABS: Blood Morphology Comment NOT SEEN (NOT SEEN); Platelet Estimate DECR; Urine White Blood Cell Casts OK
[2018-06-21] MEDS: FOLIC ACID 1 MG, MULTIVITAMINS INJ 10 ML, THIAMINE HCL 100 MG in NA CHLORIDE 0.9% 1,000 ML IV SCH (18:28)
[2018-06-21] MEDS: PIPER/TAZO/NS 3.375gm 3.375 GM/100 ML BAG IVPB SCH (18:28)
[2018-06-21] MEDS ORDERED: LACTULOSE 20 GM/30 ML UCUP PO PRN (20:54)
[2018-06-22] MEDS: PIPER/TAZO/NS 3.375gm 3.375 GM/100 ML BAG IVPB SCH ×3 (00:59→17:00)
[2018-06-22 05:05] LABS: Absolute Lymphocytes (CBC) 0.6 K/uL (0.7-4.9); Absolute Monocytes 0.4 K/uL (0.1-1.3); Basophils % 0.3 % (0-1.3); Eosinophils % 3.3 % (0-4.4); Hematocrit 34.7 % (39.6-49.0); MCH 34.4 pg (27.0-35.0); MCV 98.8 fL (80-100); MPV 10.6 fL (7.6-11.3); Monocytes % 13.7 % (3.3-12.3); RBC Red Blood Cell Count 3.52 M/uL (4.33-5.43)
[2018-06-22 05:20] LABS: Albumin 2.4 g/dL (3.4-5.0); Bilirubin Total 1.2 mg/dL (0.2-1.0); Potassium 4.1 mmol/L (3.5-5.1); Protein, Total 6.6 g/dL (6.4-8.2)
--- NOTE | 2018-06-22 08:08 | EKG ---
Test Date: 2018-06-21 Test Time: 16:48:01 Clerical Aide: CARMEN MEASUREMENT RESULTS: Intervals: Rate: 91 NH: 200 QRSD: 126 QT: 386 QTc: 474 [place]: P: 36 NH: 200 QRS: -47 T: 82 INTERPRETIVE STATEMENTS: Sinus rhythm with premature ventricularcomplexes Left axis deviation Nonspecific intraventricular block Cannot rule out Inferior infarct (masked by fascicular block?), age undetermined Abnormal ECG Compared to ECG 11/10/2003 19:40:00 ventricular premature complex(es) now present Left-axis deviation now present Myocardial infarct finding now present Electronically Signed On 06-22-18 08:07:56 CDT by Gee Rosenthal
--- NOTE | 2018-06-22 09:31 | RAD REPORT ---
EXAM DESCRIPTION: US - Paracentesis Proc Guidance - 06/22/2018 8:50 am CLINICAL HISTORY: Ascites, known liver carcinoma COMPARISON: CT study June 21 TECHNIQUE: The patient presents for ultrasound-guided paracentesis. The procedure, risks and altern atives were discussed with the patient in detail. Oral and written consent were obtained. Time out p rocedure was performed. The patient had no contraindicated allergy or medication history. PT, INR va lues within acceptable limits. Platelet count was low but still within acceptable range. Preliminary sonographic evaluation identified left lower quadrant access site. The skin and deeper t issues were anesthetized with 1 percent lidocaine. Under direct sonographic visualization, a paracen tesis catheter was advanced into the peritoneal cavity. Approximately 20 mL of ascites retained for p ossible laboratory studies. Large volume drainage was initiated. Approximately 5 liters of ascites re moved. At the conclusion of the procedure, catheter was withdrawn and a bandage placed at the puncture site. Postprocedure care and precaution instructions were given to the patient. IMPRESSION: Ultrasound-guided paracentesis as detailed.
[2018-06-22 09:40] LABS: Body Fluid WBC 75 /mm^3
[2018-06-22 10:14] LABS: Appearance CLEAR (CLEAR); Body Fluid Source PERITONEAL; Color of fluid Colorless (COLORLESS)
--- OUTSIDE RECORDS SUMMARY | 2018-06-22 12:09 | XMS REPORT | Clinical Summary ---
:1960 Author Organization [facility] Address [address] [place] [address] Care Team Providers Name Role Phone Asked, [...] INFLUENZA VACCINE 04/29/2018 Results Not on fileafter 06/21/2017 Insurance Payer Benefit Plan / Group Subscriber ID Type Phone Address BCBS BCBS OUT OF STATE xxxxxxxxxxxxxxx PPO Home: [address] [phone] [place], [place] [id number] VIDAL MONSON Transplant Self 1960 Home: [address] [phone] [phone]
[2018-06-22] MEDS ORDERED: LACTULOSE 20 GM/30 ML UCUP PO SCH (13:15)
[2018-06-22] MEDS ORDERED: D50W 25 GM/50 ML SYRINGE IV PRN (13:19)
[2018-06-22] MEDS ORDERED: GLUCAGON 1 MG/VIAL IM PRN (13:19)
[2018-06-22] MEDS ORDERED: hydroCHLOROthiazide 12.5 MG CAP PO PRN (14:59)
[2018-06-22] MEDS: INSULIN -REGULAR HUMAN 50 UNIT/0.5 ML ML SQ SCH ×2 (16:30→21:00)
[2018-06-22 16:34] VITALS: BMI 29.5
[2018-06-22] MEDS: LACTULOSE 20 GM/30 ML UCUP PO SCH ×2 (17:00→19:48)
[2018-06-22] MEDS: FOLIC ACID 1 MG, MULTIVITAMINS INJ 10 ML, THIAMINE HCL 100 MG in NA CHLORIDE 0.9% 1,000 ML IV SCH (17:00)
[2018-06-22] MEDS: HOME MED 1 EA UNK (Pregabalin [Lyrica] 300 MG) PO SCH (21:00)
[2018-06-23] MEDS: PIPER/TAZO/NS 3.375gm 3.375 GM/100 ML BAG IVPB SCH ×2 (01:12→08:39)
[2018-06-23] MEDS ORDERED: PANTOPRAZOLE 40MG TABLET PO SCH (06:30)
[2018-06-23] MEDS: INSULIN -REGULAR HUMAN 50 UNIT/0.5 ML ML SQ SCH ×2 (07:30→11:30)
[2018-06-23] MEDS: HOME MED 1 EA UNK (Pregabalin [Lyrica] 300 MG) PO SCH (08:39)
[2018-06-23] MEDS: LACTULOSE 20 GM/30 ML UCUP PO SCH (08:39)
[2018-06-23] MEDS ORDERED: LOSARTAN POTASSIUM 50 MG TABLET PO SCH (09:00)
[2018-06-23 09:07] LABS: Absolute Lymphocytes (CBC) 0.7 K/uL (0.7-4.9); Absolute Monocytes 0.5 K/uL (0.1-1.3); Absolute Neutrophil 2.3 K/uL (1.8-8.0); Basophils % 0.2 % (0-1.3); Eosinophils % 2.6 % (0-4.4); Hematocrit 36.6 % (39.6-49.0); Lymphocytes % 19.1 % (15.3-44.8); MPV 10.8 fL (7.6-11.3)
[2018-06-23 09:12] LABS: Magnesium 1.9 mg/dL (1.8-2.4); Potassium 3.9 mmol/L (3.5-5.1)
[2018-06-23 10:25] VITALS: O2SAT 93
[2018-06-23 12:51] VITALS: BP 142/77; TEMP 98.9
== END 2018-06-23 16:42 | disposition home or self-care (01) | DRG 948 ==
LOC: ER 11:57 → ERHOLD 14:16 → 2ND 16:52 → OBSVTOIN 06-23 09:27
PROVIDERS: ADMIT Internal Medicine Sleep Medicine; ATTEND Internal Medicine Sleep Medicine
PROC: 0W9G3ZX Drainage of Peritoneal Cavity, Percutaneous Approach, Diagnostic (ICD-10-PCS; principal; 2018-06-22)
DX: R41.0 Disorientation, unspecified (principal); C22.0 Liver cell carcinoma; R18.8 Other ascites; E11.9 Type 2 diabetes mellitus without complications; K21.9 Gastro-esophageal reflux disease without esophagitis; Z87.891 Personal history of nicotine dependence
CPT/HCPCS: 36415; 49083; 71045; 74176; 80048; 80053; 80076; 82140; 82962; 83525; 83735; 83880; 84484; 85025; 85610; 87070; 88108; 88305; 89050; 93005; 99285; G0378; J2543; J3411; J7030

== ENCOUNTER 2018-06-29 08:50 | Day surgery (SDC) | payer BC ==
--- OUTSIDE RECORDS SUMMARY | 2018-06-29 09:36 | XMS REPORT | Clinical Summary ---
:1960 Author Organization [facility] Address [address] [place] [address] Care Team Providers Name Role Phone Asked, [...] Active Problems Problem Noted Date Hepatocellular carcinoma (HCC) 12/02/2016 Non-alcoholic cirrhosis (HCC) 12/02/2016 Chronic hepatitis C (HCC) 12/02/2016 Social History Tobacco Use Types Packs/Day Years Used Date Former Smoker Quit: 2013 Sex Assigned at Date Recorded Not on file Last Filed Vital Signs Not on file Plan of Treatment Health Maintenance Due Date Last Done Comments COLON CANCER SCREENING 2010 SHINGRIX VACCINE (#1) 2010 INFLUENZA VACCINE 04/29/2018 Results Not on fileafter 06/28/2017 Insurance Payer Benefit Plan / Group Subscriber ID Type Phone Address BCBS BCBS OUT OF STATE xxxxxxxxxxxxxxx PPO Home: [address] [phone] [place], [place] [phone] VIDAL MONSON Transplant Self 1960 Home: [address] [phone] [phone]
[2018-06-29 09:38] VITALS: BMI 29.5
--- NOTE | 2018-06-29 11:13 | RAD REPORT ---
EXAM DESCRIPTION: US - Paracentesis Proc Guidance - 06/29/2018 11:05 am CLINICAL HISTORY: ASCITES- LABS TO BE DRAWN Ascites COMPARISON: Paracentesis Proc Guidance dated 06/22/2018 FINDINGS: Informed consent was obtained and time-out was performed. Patient's abdomen was prepped and draped in the usual sterile fashion. 1% lidocaine was used for loca l anesthetic purposes. A small skin incision was made. A paracentesis catheter was guided into the peroneal cavity under son ographic guidance. A small amount of fluid was sent for requested lab studies. A large volume paracentesis was performed . 6.9 liters of clear yellowish fluid obtained. The patient tolerated the procedure well. IMPRESSION: Successful ultrasound-guided paracentesis.
[2018-06-29 12:37] VITALS: BP 136/78; TEMP 97.3; O2SAT 95
== END 2018-06-29 12:00 | disposition home or self-care (01) ==
LOC: DS 08:50
PROVIDERS: ATTEND Family Medicine
PROC: 0W9G3ZX Drainage of Peritoneal Cavity, Percutaneous Approach, Diagnostic (ICD-10-PCS; principal; 2018-06-29)
PROC: BW40ZZZ Ultrasonography of Abdomen (ICD-10-PCS; 2018-06-29)
DX: R18.8 Other ascites (principal); C22.9 Malignant neoplasm of liver, not specified as primary or secondary
CPT/HCPCS: 49083; 87070

== ENCOUNTER 2018-07-02 06:16 | Inpatient (IN) | payer BC ==
--- OUTSIDE RECORDS SUMMARY | 2018-07-02 06:17 | XMS REPORT | Clinical Summary ---
:1960 Author Organization [facility] Address [address] [place] [address] Care Team Providers Name Role Phone Asked, [...] INFLUENZA VACCINE 04/29/2018 Results Not on fileafter 07/01/2017 Insurance Payer Benefit Plan / Group Subscriber ID Type Phone Address BCBS BCBS OUT OF STATE xxxxxxxxxxxxxxx PPO Home: [address] [phone] [place], [place] [id number] VIDAL MONSON Transplant Self 1960 Home: [address] [phone] [place] [phone]
[2018-07-02 07:09] LABS: Protime INR 1.08
[2018-07-02 07:11] LABS: Absolute Lymphocytes (CBC) 0.5 K/uL (0.7-4.9); Absolute Monocytes 0.4 K/uL (0.1-1.3); Absolute Neutrophil 2.5 K/uL (1.8-8.0); Basophils % 0.4 % (0-1.3); Eosinophils % 2.2 % (0-4.4); Hematocrit 37.5 % (39.6-49.0); Lymphocytes % 13.4 % (15.3-44.8); MCH 34.5 pg (27.0-35.0); MCV 100.8 fL (80-100); MPV 10.6 fL (7.6-11.3); Monocytes % 12.3 % (3.3-12.3); RBC Red Blood Cell Count 3.72 M/uL (4.33-5.43)
[2018-07-02 07:29] LABS: Albumin 2.6 g/dL (3.4-5.0); Bilirubin Direct 0.6 mg/dL (0-0.2); Bilirubin Total 1.1 mg/dL (0.2-1.0); Magnesium 2.3 mg/dL (1.8-2.4); Potassium 4.6 mmol/L (3.5-5.1); Protein, Total 7.6 g/dL (6.4-8.2); Troponin (Emerg Dept Use Only) 0.03 ng/mL (0.0-0.045)
--- NOTE | 2018-07-02 08:07 | ER ---
Nurse's Notes [facility] Name: Viadl Monson Age: 57 yrs Sex: Male : 1960 Arrival Date: 07/02/2018 Time: 06:23 Bed 20 Private MD: Diagnosis: Hepatic Encephalopathy ;Altered mental status, unspecified Presentation: 07/02 06:23 Presenting complaint: EMS states: Patient with liver cancer, per family, became altered lp1 this morning, disoriented; Family states frequent checks on Ammonia levels, checked last , due to be drawn again today. Transition of care: patient was not received from another setting of care. Onset of symptoms was July 02, 2018. Risk Assessment: Do you want to hurt yourself or someone else? Patient reports no desire to harm self or others. Initial Sepsis Screen: Does the patient meet any 2 criteria? No. Patient's initial sepsis screen is negative. Does the patient have a suspected source of infection? No. Patient's initial sepsis screen is negative. Care prior to arrival: None. 06:23 Method Of Arrival: EMS: [facility] lp1 06:23 Acuity: JO 2 lp1 Historical: - Allergies: 06:29 tramadol; lp1 - Home Meds: 06:29 celecoxib 200 mg Oral cap 1 cap 2 times per day [Active]; losartan 50 mg oral tab 1 tab lp1 once daily [Active]; hydromorphone 2 mg Oral tab 1 tab every 6 hours [Active]; Protonix 40 mg Oral TbEC 1 tab once daily [Active]; hydrochlorothiazide 12.5 mg Oral tab 1 tab once daily [Active]; Lyrica 300 mg Oral 3 times per day [Active]; Lantus 100 unit/mL Sub-Q soln 45 unit daily [Active]; - PMHx: 06:29 Diabetes - IDDM; GERD; Hepatitis; liver cancer; lp1 - PSHx: 06:29 None; lp1 - Immunization history:: Adult Immunizations up to date. - Social history:: Smoking status: Patient/guardian denies using tobacco. - Ebola Screening: : No symptoms or risks identified at this time. Screenin:29 Abuse screen: Denies threats or abuse. Denies injuries from another. Nutritional lp1 screening: No deficits noted. Tuberculosis screening: No symptoms or risk factors identified. Fall Risk Total Escobar Fall Scale indicates High Risk Score (45 or more points). Fall prevention measures have been instituted. Side Rails Up X 2 Placed Close to Nursing Station Family Present and informed to notify staff if the need to leave the bedside. Assessment: 07:10 General: Appears comfortable. Pain: Unable to use pain scale. Patient is disoriented. aa5 Does not appear to understand pain scale. Neuro: Level of Consciousness is awakens to tactile stimuli. Pt unable to follow commands, pt non-verbal at this time. Pt appears to be resting in bed with eyes closed with shallow respirations. Pupils are PERRL and sluggishly reactive to light. Pt's states "He woke up this morning like this not speaking but yesterday he was a little confused" . Cardiovascular: Heart tones S1 S2 present Rhythm is regular. Respiratory: Airway is patent Respiratory effort is even, unlabored, Respiratory pattern is regular, symmetrical, Breath sounds are clear bilaterally. GI: Abdomen is round non-distended, Bowel sounds present X 4 quads. Abd is soft and non tender X 4 quads. : No signs and/or symptoms were reported regarding the genitourinary system. EENT: No signs and/or symptoms were reported regarding the EENT system. Derm: Skin is pink, warm \\T\\ dry. Musculoskeletal: Range of motion: intact in all extremities. 08:10 Reassessment: PA at bedside speaking to pt's family about need for admission. aa5 09:35 Reassessment: Bowel movement noted during half of the lactulose administration, rectal aa5 ballon came out during bowel movement. BM was soft and brown. Remaining lactulose was administered and pt tolerated well. Lactulose administration was started at 0825 and completed at 0855, lactulose was retained for at least 30 minutes after administration. . 09:45 Neuro: Level of Consciousness is Pt resting in bed with eyes closed, pt awakens to aa5 tactile and verbal stimuli. Pt is non-verbal at this time. Unable to follow commands. Respirations even and unlabored. Skin is pink/warm/dry. Pt's family at bedside . Vital Signs: 06:29 BP 117 / 69; Pulse 97; Resp 12; Temp 96.7(A); Pulse Ox 100% on R/A; Weight 113.4 kg (R);lp1 07:35 BP 140 / 78; Pulse 88; Resp 14 S; Pulse Ox 100% on R/A; aa5 09:29 BP 147 / 77; Pulse 89; Resp 20; Pulse Ox 99% on R/A; mh5 09:30 Temp 97.3(TE); aa5 Kent Coma Score: 06:38 Eye Response: to voice(3). Verbal Response: confused(4). Motor Response: localizes lp1 pain(5). Total: 12. ED Course: 06:23 Patient arrived in ED. lp1 06:25 Triage completed. lp1 06:26 David Lacey PA is PHCP. jr8 06:26 Arias Lew MD is Attending Physician. jr8 06:27 Initial lab(s) drawn, by me. Inserted saline lock: 20 gauge in left wrist, using aa1 aseptic technique. Blood collected. 06:29 Arm band placed on. lp1 06:30 Patient has correct armband on for positive identification. Placed in gown. Bed in low lp1 position. Side rails up X2. fuel buyer on. Pulse ox on. NIBP on. 06:37 Martita Han, GERTRUDE is Primary Nurse. lp1 07:00 Report received from GERTRUDE Anders. aa5 07:04 X-ray completed. Portable x-ray completed in exam room. Patient tolerated procedure kw well. 07:04 XRAY Chest (1 view) In Process Unspecified. EDMS 08:06 Elmer Flynn MD is Hospitalizing Provider. jr8 09:35 No provider procedures requiring assistance completed. aa5 09:55 Patient admitted, IV remains in place. aa5 Administered Medications: 08:25 Drug: Lactulose 200 grams Route: AK; aa5 09:55 Follow up: Response: No adverse reaction aa5 Point of Care Testing: Blood Glucose: 06:36 Blood Glucose: 130 mg/dL; ds4 Ranges: Outcome: 08:07 Decision to Hospitalize by Provider. jr8 09:55 Admitted to Tele accompanied by tech, family with patient, via stretcher, with chart, aa5 Report called to GERTRUDE Blair 09:55 Condition: stable 09:55 Discharge instructions given to Pt's Instructed on the need for admit, Demonstrated understanding of instructions. 10:00 Patient left the ED. aa5 Signatures: [facility] Jina Mccauley RN RN aa1 Rossana Bhatia RN RN aa5 Madai Busch Laura, RN RN lp1 David Lacey PA PA jr8 Jonathan Kent4 Kristine Magallanes 5 Corrections: (The following items were deleted from the chart) 07:36 07:00 Report given to GERTRUDE Anders aa5 aa5
--- NOTE | 2018-07-02 08:07 | EDPHYS ---
Physician Documentation [facility] Name: Vidal Monson Age: 57 yrs Sex: Male : 1960 Arrival Date: 07/02/2018 Time: 06:23 Bed 20 Private MD: ED Physician Arias Lew HPI: 07/02 07:49 This 57 yrs old Male presents to ER via EMS with complaints of Altered Mental jr8 Status. 07:49 The patient presents with decreased mental status, decreased responsiveness, jr8 disorientation. Onset: The symptoms/episode began/occurred acutely, this morning, today. Possible causes: known history of cirrhosis and liver failure . Associated signs and symptoms: The patient has no apparent associated signs or symptoms. Current symptoms: In the emergency department the patient's symptoms are unchanged from the initial presentation. Patient's baseline: Neuro: alert and fully oriented, Motor: no deficits, Ambulation: walks without assistance. The patient has experienced similar episodes in the past, a few times. The patient has not recently seen a physician. 07:49 stated that he started to act confused yesterday. This morning could not wake him jr8 up. Has been doing his lactulose as prescribed. No recent illness or trauma . Historical: - Allergies: 06:29 tramadol; lp1 - Home Meds: 06:29 celecoxib 200 mg Oral cap 1 cap 2 times per day [Active]; losartan 50 mg oral tab 1 tab lp1 once daily [Active]; hydromorphone 2 mg Oral tab 1 tab every 6 hours [Active]; Protonix 40 mg Oral TbEC 1 tab once daily [Active]; hydrochlorothiazide 12.5 mg Oral tab 1 tab once daily [Active]; Lyrica 300 mg Oral 3 times per day [Active]; Lantus 100 unit/mL Sub-Q soln 45 unit daily [Active]; - PMHx: 06:29 Diabetes - IDDM; GERD; Hepatitis; liver cancer; lp1 - PSHx: 06:29 None; lp1 - Immunization history:: Adult Immunizations up to date. - Social history:: Smoking status: Patient/guardian denies using tobacco. - Ebola Screening: : No symptoms or risks identified at this time. ROS: 07:49 Unable to obtain ROS due to altered mental status. jr8 Exam: 07:49 Eyes: Pupils equal round and reactive to light, extra-ocular motions intact. Lids and jr8 lashes normal. Conjunctiva and sclera are non-icteric and not injected. Cornea within normal limits. Periorbital areas with no swelling, redness, or edema. ENT: Nares patent. No nasal discharge, no septal abnormalities noted. Tympanic membranes are normal and external auditory canals are clear. Oropharynx with no redness, swelling, or masses, exudates, or evidence of obstruction, uvula midline. Mucous membranes moist. Neck: Trachea midline, no thyromegaly or masses palpated, and no cervical lymphadenopathy. Supple, full range of motion without nuchal rigidity, or vertebral point tenderness. No Meningismus. Cardiovascular: Regular rate and rhythm with a normal S1 and S2. No gallops, murmurs, or rubs. Normal PMI, no JVD. No pulse deficits. Respiratory: Lungs have equal breath sounds bilaterally, clear to auscultation and percussion. No rales, rhonchi or wheezes noted. No increased work of breathing, no retractions or nasal flaring. Abdomen/GI: Soft, non-tender, with normal bowel sounds. No distension or tympany. No guarding or rebound. No evidence of tenderness throughout. Back: No spinal tenderness. No costovertebral tenderness. Full range of motion. Skin: Warm, dry with normal turgor. Normal color with no rashes, no lesions, and no evidence of cellulitis. MS/ Extremity: Pulses equal, no cyanosis. Neurovascular intact. Full, normal range of motion. 07:49 Neuro: Orientation: Not oriented to person, place, time, situation, Mentation: unable to follow commands, Memory: unable to test, Cranial nerves: unable to test, Cerebellar function: unable to test, Motor: moves all fours, Sensation: no obvious gross deficits, Gait: not tested. seizure activity, is not displayed by the patient, Abnormal movements: Asterixis present . Vital Signs: 06:29 BP 117 / 69; Pulse 97; Resp 12; Temp 96.7(A); Pulse Ox 100% on R/A; Weight 113.4 kg (R);lp1 07:35 BP 140 / 78; Pulse 88; Resp 14 S; Pulse Ox 100% on R/A; aa5 09:29 BP 147 / 77; Pulse 89; Resp 20; Pulse Ox 99% on R/A; mh5 09:30 Temp 97.3(TE); aa5 Milind Coma Score: 06:38 Eye Response: to voice(3). Verbal Response: confused(4). Motor Response: localizes lp1 pain(5). Total: 12. MDM: 06:26 Patient medically screened. [facility] 08:03 Data reviewed: vital signs, nurses notes, lab test result(s), and as a result, I will jr8 admit patient. Data interpreted: Pulse oximetry: on room air is 100 %. Interpretation: normal. Counseling: I had a detailed discussion with the patient and/or guardian regarding: the historical points, exam findings, and any diagnostic results supporting the discharge/admit diagnosis, lab results, the need for further work-up and treatment in the hospital. Physician consultation: Elmer Flynn MD was called at 08:04, was contacted at 08:04, regarding admission, to the telemetry unit. consult, patient's condition, and will see patient. ED course: Wants GI consult with Dr. Alegria. Will put one in but Dr. Flynn will call him personally since he is not on today . 07/02 06:36 Order name: Basic Metabolic Panel; Complete Time: 07:32 07/02 06:36 Order name: CBC with Diff; Complete Time: 09:34 07/02 06:36 Order name: LFT's; Complete Time: 07:32 07/02 06:36 Order name: Magnesium; Complete Time: 07:32 07/02 06:36 Order name: NT PRO-BNP; Complete Time: 07:32 07/02 06:36 Order name: PT-INR; Complete Time: 07:19 07/02 06:36 Order name: Troponin (emerg Dept Use Only); Complete Time: 07:32 07/02 06:36 Order name: XRAY Chest (1 view); Complete Time: 08:20 07/02 06:36 Order name: EKG; Complete Time: 06:37 07/02 06:36 Order name: Cardiac monitoring; Complete Time: 06:39 07/02 06:36 Order name: AMMONIA; Complete Time: 07:58 07/02 08:23 Order name: CONS Physician Consult EDMS 07/02 09:24 Order name: CBC Smear Scan; Complete Time: 09:34 EDNV 07/02 06:36 Order name: EKG - Nurse/Tech; Complete Time: 08:00 jr8 07/02 06:36 Order name: IV Saline Lock; Complete Time: 06:39 jr8 07/02 06:36 Order name: Labs collected and sent; Complete Time: 06:55 jr8 07/02 06:36 Order name: O2 Per Protocol; Complete Time: 06:40 jr8 07/02 06:36 Order name: O2 Sat Monitoring; Complete Time: 06:40 jr8 Administered Medications: 08:25 Drug: Lactulose 200 grams Route: DC; aa5 09:55 Follow up: Response: No adverse reaction aa5 Point of Care Testing: Blood Glucose: 06:36 Blood Glucose: 130 mg/dL; ds4 Ranges: Critical Glucose Levels:Adult <50 mg/dl or >400 mg/dl <40 mg/dl or >180 mg/dl Disposition: 07/02/18 08:07 Hospitalization ordered by Elmer Flynn for Inpatient Admission. Preliminary diagnosis are Hepatic Encephalopathy , Altered mental status, unspecified. - Bed requested for Telemetry/MedSurg (Inpatient). - Status is Inpatient Admission. aa5 - Condition is Fair. - Problem is new. - Symptoms are unchanged. UTI on Admission? No Addendum: 07/05/2018 23:20 Co-signature as Attending Physician, Arias Lew MD I agree with the assessment and t w4 plan of care. Attestation: The patient's history, exam findings, diagnostics, and a summary of any interventions or procedures was reviewed in detail with David ARANDA. Signatures: Dispatcher [employer] [facility] Rossana Bhatia RN RN aa5 Martita Han RN RN lp1 David Lacey PA PA jr8 Arias Lew MD MD tw4 Mary Kay Aldrich Corrections: (The following items were deleted from the chart) 07/02 07:51 07:49 stated that he started to act confused yesterday. This morning could not jr8 wake him up. Has been doing his lactulose as prescribed . jr8 08:31 08:07 Hospitalization Ordered by Elmer Flynn MD for Inpatient Admission. Preliminary eb diagnosis is Hepatic Encephalopathy ; Altered mental status, unspecified. Bed requested for Telemetry/MedSurg (Inpatient). Status is Inpatient Admission. Condition is Fair. Problem is new. Symptoms are unchanged. UTI on Admission? No. jr8 08:56 08:31 07/02/2018 08:07 Hospitalization Ordered by Elmer Flynn MD for Inpatient eb Admission. Preliminary diagnosis is Hepatic Encephalopathy ; Altered mental status, unspecified. Bed requested for Telemetry/MedSurg (Inpatient). Status is Inpatient Admission. Condition is Fair. Problem is new. Symptoms are unchanged. UTI on Admission? No. eb 10:00 08:56 07/02/2018 08:07 Hospitalization Ordered by Elmer Flynn MD for Inpatient aa5 Admission. Preliminary diagnosis is Hepatic Encephalopathy ; Altered mental status, unspecified. Bed requested for Telemetry/MedSurg (Inpatient). Status is Inpatient Admission. Condition is Fair. Problem is new. Symptoms are unchanged. UTI on Admission? No. eb
--- NOTE | 2018-07-02 08:13 | RAD REPORT ---
EXAM DESCRIPTION: RAD - Chest Single View - 07/02/2018 7:04 am CLINICAL HISTORY: Altered mental status, shortness of breath, hepatic carcinoma COMPARISON: June 21 TECHNIQUE: AP portable chest image was obtained 0654 hours . FINDINGS: Lung volumes are low. No peripheral mass or consolidation. No focal lung parenchymal proce ss. Lung markings are similar to comparison. Heart size and vasculature are magnified by shallow insp iration portable chest examination. True significant failure or volume overload not suspected. Right- sided Port-A-Cath is in place. No measurable pleural effusion and no pneumothorax. No gross bony abno rmality seen. No acute aortic findings suspected. IMPRESSION: Shallow inspiration film is not substantially different from comparison. Heart, vasculature and lung markings are all accentuated by shallow inspiration and portable techniqu e.
[2018-07-02] MEDS ORDERED: LACTULOSE 20 GM/30 ML UCUP ONE ×4 (08:19→09:16)
[2018-07-02 09:24] LABS: Blood Morphology Comment NOT SEEN (NOT SEEN); Platelet Estimate DECR; Urine White Blood Cell Casts OK
[2018-07-02] MEDS ORDERED: ONDANSETRON 4 MG/2 ML VIAL IV PRN (10:13)
[2018-07-02] MEDS: LACTULOSE 20 GM/30 ML UCUP PO SCH ×2 (10:13→21:53)
[2018-07-02 10:57] VITALS: BMI 33.0
[2018-07-02] MEDS ORDERED: INFLUENZA VACCINE (for 3y+) 0.5 ML DOSE IMVAC ONE (11:00)
[2018-07-02] MEDS ORDERED: GLUCAGON 1 MG/VIAL IM PRN (11:28)
[2018-07-02] MEDS ORDERED: D50W 25 GM/50 ML SYRINGE IV PRN (11:28)
[2018-07-02] MEDS: INSULIN -REGULAR HUMAN 50 UNIT/0.5 ML ML SQ SCH ×3 (11:30→21:00)
[2018-07-02] MEDS: NA CHLORIDE 0.9% 1,000 ML IV SCH ×3 (11:33→23:33)
[2018-07-02] MEDS: CEFTRIAXONE/SWI 1gm 1 GM/10 ML SYR IV SCH ×2 (11:33→21:55)
[2018-07-02] MEDS ORDERED: SODIUM CHLORIDE 0.9% 10ML INJ IV PRN (14:30)
[2018-07-02] MEDS ORDERED: HYDRALAZINE HCL 20 MG/ML VIAL IV PRN (14:32)
--- NOTE | 2018-07-02 16:47 | EKG ---
Test Date: 2018-07-02 Test Time: 07:03:03 Director Audience Marketing: ARLENE MEASUREMENT RESULTS: Intervals: Rate: 88 HI: 214 QRSD: 128 QT: 406 QTc: 491 Perry: P: 53 HI: 214 QRS: -46 T: 79 INTERPRETIVE STATEMENTS: Sinus rhythm with 1st degree AV block with premature atrial complexes with aberrant conduction Left axis deviation Nonspecific intraventricular block Cannot rule out Inferior infarct (masked by fascicular block?), age undetermined Abnormal ECG Compared to ECG 06/21/2018 16:48:01 Atrial premature complex(es) now present First degree AV block now present Aberrant conduction of supraventricular beat(s) now present Myocardial infarct finding still present Electronically Signed On 07-02-18 16:44:40 CDT by Kuldeep Collins
[2018-07-02] MEDS ORDERED: LACTULOSE 20 GM/30 ML UCUP PR SCH (17:00)
[2018-07-02] MEDS ORDERED: LACTULOSE 20 GM/30 ML UCUP PR ONE (17:00)
[2018-07-03 06:14] LABS: Absolute Lymphocytes (CBC) 0.6 K/uL (0.7-4.9); Absolute Monocytes 0.4 K/uL (0.1-1.3); Basophils % 0.4 % (0-1.3); Eosinophils % 2.3 % (0-4.4); Hematocrit 36.5 % (39.6-49.0); Lymphocytes % 18.9 % (15.3-44.8); MCH 34.4 pg (27.0-35.0); MCV 100.2 fL (80-100); MPV 11.1 fL (7.6-11.3); Monocytes % 13.6 % (3.3-12.3); RBC Red Blood Cell Count 3.64 M/uL (4.33-5.43)
[2018-07-03 06:24] LABS: Albumin 2.3 g/dL (3.4-5.0); Bilirubin Direct 0.6 mg/dL (0-0.2); Bilirubin Total 1.2 mg/dL (0.2-1.0); Magnesium 1.9 mg/dL (1.8-2.4); Potassium 4.4 mmol/L (3.5-5.1); Protein, Total 7.1 g/dL (6.4-8.2)
[2018-07-03] MEDS: INSULIN -REGULAR HUMAN 50 UNIT/0.5 ML ML SQ SCH ×2 (07:30→11:30)
[2018-07-03] MEDS: LACTULOSE 20 GM/30 ML UCUP PO SCH (08:57)
[2018-07-03] MEDS: NA CHLORIDE 0.9% 1,000 ML IV SCH (08:57)
[2018-07-03] MEDS: CEFTRIAXONE/SWI 1gm 1 GM/10 ML SYR IV SCH (08:57)
[2018-07-03] MEDS ORDERED: PANTOPRAZOLE 40 MG INJ IVP SCH (09:00)
[2018-07-03 09:08] VITALS: O2SAT 99
[2018-07-03 14:25] VITALS: BP 126/69; TEMP 99
--- NOTE | 2018-07-03 20:20 | PN ---
Date of Progress Note: 07/02/2018 Subjective: As the day progressed, the patient has had a minimal improvement in his level of respons iveness. Still does not tolerate the pain. Rectal treatment has been instituted once again. Vital signs otherwise stable. He was started on Rocephin. His leukopenia has been well noted. No major c hanges. Consultation was obtained with Dr. Kerr in attempt to get some local involvement in his [facility] care. HR/MODL Voice ID: [id number] Report ID: [id number]
--- NOTE | 2018-07-03 21:41 | HP ---
Date of Admission: 07/02/2018 Entrance Complaint: Unresponsiveness. History Of Present Illness: According to information by the patient's , she noticed he was actin g a little strange prior to episode where she came in and found him arousable. This is the second or third episode he have of a hepatic encephalopathy where he has been unresponsive over this one seems deeper than in the past one of which occurred in [place] where he was for his chemotherapy and the o ther was at home when he was admitted here, treated and responded quite well within 24 hours. Michael ewing, this time she said he has been much more difficult to respond to any stimuli. Past Medical History: As above. The patient developed hepatic encephalopathy. After going through the chart, he has hepatitis C, metastatic localized liver cancer with resulting complications. He wa s initially treated by [facility] and then decided to go to [place], which he has been doing on a co uple visits a month for his treatment with and apparently 1 episode of encephalopathy at [facility] location. He is planning going back this weekend. He had a 7 L removed from his abdomen on and perhaps is a correlation between those procedures paracentesis and his episodes as he has had up to 5 L removed a couple times in the past. Social History: The patient has not been on any recent toxins, chemicals or alcohol and nicotine. Family History: Noncontributory. Physical Examination: General: The patient is an unresponsive elderly male including unresponsive to deep pain stimuli, on occasion we will move his clenched teeth. Neurologic: The remainder of neurological exam could not be done with any degree of accuracy. Cardiovascular: PMI midclavicular line. Heart: Sounds normal. Peripheral pulses are present and equal bilaterally. Abdomen: Minimal distention. No guarding, rebound, tenderness, or rigidity. Bowel sounds normal. Extremities: Slightly dehydrated. Good tone and movement bilaterally. Reflexes physiologic. Rectal: Deferred. Impression: Acute hepatic encephalopathy, however cancer secondary to cirrhosis, post paracentesis, hypertension controlled, noninsulin-dependent diabetes mellitus controlled. Plan: The patient will be admitted. We will give him rectal treatment as he cannot swallow in order to get the ammonia level down, dehydrated, antibiotics were add to the regimen. Depending on his re sponse his further treatment will be indicated. HR/MODL Voice ID: [id number]
== END 2018-07-03 15:41 | disposition home or self-care (01) | DRG 442 ==
LOC: ER 06:16 → ERHOLD 08:21 → 4TH 09:53
PROVIDERS: ADMIT Family Medicine; ATTEND Family Medicine
DX: K72.90 Hepatic failure, unspecified without coma (principal); C22.8 Malignant neoplasm of liver, primary, unspecified as to type; I10 Essential (primary) hypertension; E11.9 Type 2 diabetes mellitus without complications; B19.20 Unspecified viral hepatitis C without hepatic coma; Z23 Encounter for immunization
CPT/HCPCS: 36415; 71045; 80048; 80076; 82140; 82962; 83735; 83880; 84484; 85025; 85610; 93005; 99285; C9113; G0008; J0696; J7030; Q2035

== ENCOUNTER 2018-07-09 10:23 | Day surgery (SDC) | payer BC ==
--- OUTSIDE RECORDS SUMMARY | 2018-07-09 10:26 | XMS REPORT | Clinical Summary ---
:1960 Author Organization [facility] Address [address] [place] [address] Care Team Providers Name Role Phone Asked, [...] INFLUENZA VACCINE 04/29/2018 Results Not on fileafter 07/08/2017 Insurance Payer Benefit Plan / Group Subscriber ID Type Phone Address BCBS BCBS OUT OF STATE xxxxxxxxxxxxxxx PPO Home: [address] [phone] [place], [place] [phone] VID[facility] MONSON Transplant Self 1960 Home: [address] [phone] [place] [phone]
[2018-07-09 10:56] VITALS: BMI 29.5
[2018-07-09] MEDS ORDERED: ALBUMIN HUMAN 25% 100 ML IV ONE (13:00)
[2018-07-09 13:17] VITALS: O2SAT 99
[2018-07-09 13:24] VITALS: BP 141/69; TEMP 98.4
--- NOTE | 2018-07-09 13:30 | RAD REPORT ---
EXAM DESCRIPTION: US - Paracentesis Proc Guidance - 07/09/2018 11:50 am CLINICAL HISTORY: Liver disease with ascites FINDINGS: The risks, benefits and alternatives to the procedure were explained to the patient and in formed consent obtained. The skin and subcutaneous tissues were anesthetized with Lidocaine. Under sonographic guidance an 8 F rench catheter was placed into the right lower quadrant. Approximately 6.5 liters of yellow fluid was removed The patient experienced no immediate complication. IMPRESSION: Paracentesis
== END 2018-07-09 12:55 | disposition home or self-care (01) ==
LOC: DS 10:23
PROVIDERS: ATTEND Family Medicine
PROC: 0W9G3ZX Drainage of Peritoneal Cavity, Percutaneous Approach, Diagnostic (ICD-10-PCS; principal; 2018-07-09)
PROC: BW40ZZZ Ultrasonography of Abdomen (ICD-10-PCS; 2018-07-09)
DX: R18.8 Other ascites (principal); C22.9 Malignant neoplasm of liver, not specified as primary or secondary
CPT/HCPCS: 49083; 82962; 96365; P9047

== ENCOUNTER 2018-07-20 10:03 | Day surgery (SDC) | payer BC ==
--- OUTSIDE RECORDS SUMMARY | 2018-07-20 10:10 | XMS REPORT | Clinical Summary ---
:1960 Author Organization [facility] Address [address] [place] [address] Care Team Providers Name Role Phone Asked, [...] INFLUENZA VACCINE 04/29/2018 Results Not on fileafter 07/19/2017 Insurance Payer Benefit Plan / Group Subscriber ID Type Phone Address BCBS BCBS OUT OF STATE xxxxxxxxxxxxxxx PPO Home: [address] [phone] [place], [place] [id number] VIDAL MONSON Transplant Self 1960 Home: [address] [phone] [place] [phone]
[2018-07-20 10:28] VITALS: O2SAT 97
[2018-07-20 10:29] VITALS: BMI 35.7
--- NOTE | 2018-07-20 11:51 | RAD REPORT ---
EXAM DESCRIPTION: US - Paracentesis Proc Guidance - 07/20/2018 10:56 am CLINICAL HISTORY: Liver disease with ascites FINDINGS: The risks, benefits and alternatives to the procedure were explained to the patient and in formed consent obtained. The skin and subcutaneous tissues were anesthetized with Lidocaine. Under sonographic guidance an 8 F rench catheter was placed into the right lower quadrant. Approximately 6.5 liters of yellow fluid was removed The patient experienced no immediate complication. IMPRESSION: Paracentesis
[2018-07-20] MEDS ORDERED: ALBUMIN HUMAN 25% 100 ML IV SCH (12:00)
[2018-07-20 12:13] VITALS: TEMP 98.3
[2018-07-20 12:38] VITALS: BP 124/59
== END 2018-07-20 12:39 | disposition home or self-care (01) ==
LOC: DS 10:03
PROVIDERS: ATTEND Family Medicine
PROC: 0W9G3ZX Drainage of Peritoneal Cavity, Percutaneous Approach, Diagnostic (ICD-10-PCS; principal; 2018-07-20)
PROC: BW40ZZZ Ultrasonography of Abdomen (ICD-10-PCS; 2018-07-20)
DX: R18.8 Other ascites (principal); C22.9 Malignant neoplasm of liver, not specified as primary or secondary
CPT/HCPCS: 49083; 96365; P9047

== ENCOUNTER 2018-07-24 10:55 | Day surgery (SDC) | payer BC ==
--- OUTSIDE RECORDS SUMMARY | 2018-07-24 11:04 | XMS REPORT | Clinical Summary ---
:1960 Author Organization [facility] Address [address] [place] [address] Care Team Providers Name Role Phone Asked, [...] INFLUENZA VACCINE 04/29/2018 Results Not on fileafter 07/23/2017 Insurance Payer Benefit Plan / Group Subscriber ID Type Phone Address BCBS BCBS OUT OF STATE xxxxxxxxxxxxxxx PPO Home: [address] [phone] [place], [place] [id number] VIDAL MONSON Transplant Self 1960 Home: [address] [phone] [place] [phone]
[2018-07-24 11:54] VITALS: O2SAT 98; BMI 35.9
--- NOTE | 2018-07-24 13:20 | RAD REPORT ---
EXAM DESCRIPTION: US - Paracentesis Proc Guidance - 07/24/2018 12:32 pm CLINICAL HISTORY: Ascites COMPARISON: None. TECHNIQUE: The patient presents for ultrasound-guided paracentesis. The procedure, risks and altern atives were discussed with the patient in detail. Oral and written consent were obtained. Time out p rocedure was performed. The patient had no contraindicated allergy or medication history. PT, INR crispin ues within acceptable limits. Preliminary sonographic evaluation identified right lower quadrant access site. The skin and deeper tissues were anesthetized with 1 percent lidocaine. Under direct sonographic visualization, a parace ntesis catheter was advanced into the peritoneal cavity. Large volume drainage was initiated. Approx imately 7.4 liters of ascites removed. At the conclusion of the procedure, catheter was withdrawn and a bandage placed at the puncture site. Postprocedure care and precaution instructions were given to the patient. Patient was transferred t o same-day surgery for postprocedure monitoring and albumin infusion. IMPRESSION: Ultrasound-guided paracentesis as detailed.
[2018-07-24] MEDS ORDERED: ALBUMIN HUMAN 25% 100 ML IV ONE (13:30)
[2018-07-24 14:31] VITALS: BP 123/57; TEMP 98.2
== END 2018-07-24 13:55 | disposition home or self-care (01) ==
LOC: DS 10:55
PROVIDERS: ATTEND Family Medicine
PROC: 0W9G3ZX Drainage of Peritoneal Cavity, Percutaneous Approach, Diagnostic (ICD-10-PCS; principal; 2018-07-24)
PROC: BW40ZZZ Ultrasonography of Abdomen (ICD-10-PCS; 2018-07-24)
DX: R18.8 Other ascites (principal); C22.9 Malignant neoplasm of liver, not specified as primary or secondary
CPT/HCPCS: 49083; 96365; P9047

== ENCOUNTER 2018-07-28 10:16 | Day surgery (SDC) | payer BC ==
--- OUTSIDE RECORDS SUMMARY | 2018-07-28 10:19 | XMS REPORT | Clinical Summary ---
:1960 Author Organization [facility] Address [address] [place] [address] Care Team Providers Name Role Phone Asked, [...] INFLUENZA VACCINE 04/29/2018 Results Not on fileafter 07/27/2017 Insurance Payer Benefit Plan / Group Subscriber ID Type Phone Address BCBS BCBS OUT OF STATE xxxxxxxxxxxxxxx PPO Home: [address] [phone] [place], [place] [phone] VID[facility] MONSON Transplant Self 1960 Home: [address] [phone] [place] [phone]
[2018-07-28 10:36] VITALS: O2SAT 97
[2018-07-28 10:38] VITALS: BMI 35.6
--- NOTE | 2018-07-28 11:46 | RAD REPORT ---
EXAM DESCRIPTION: US - Paracentesis Proc Guidance - 07/28/2018 11:32 am CLINICAL HISTORY: ASCITES Ascites COMPARISON: Paracentesis Proc Guidance dated 07/24/2018 FINDINGS: Informed consent was obtained and time-out was performed. Patient's abdomen was prepped and draped in the usual sterile fashion. 1% lidocaine was used for loca l anesthetic purposes. A small skin incision was made. A paracentesis catheter was guided into the peroneal cavity under son ographic guidance. A large volume paracentesis was performed. The patient tolerated the procedure well. Patient was administered IV albumin per protocol following the procedure. IMPRESSION: Successful ultrasound-guided paracentesis.
[2018-07-28 12:12] VITALS: TEMP 98
[2018-07-28 12:13] VITALS: BP 117/58
== END 2018-07-28 12:13 | disposition home or self-care (01) ==
LOC: DS 10:16
PROVIDERS: ATTEND Family Medicine
PROC: 0W9G3ZX Drainage of Peritoneal Cavity, Percutaneous Approach, Diagnostic (ICD-10-PCS; principal; 2018-07-28)
PROC: BW40ZZZ Ultrasonography of Abdomen (ICD-10-PCS; 2018-07-28)
DX: R18.8 Other ascites (principal); C22.9 Malignant neoplasm of liver, not specified as primary or secondary
CPT/HCPCS: 49083

== ENCOUNTER 2018-10-26 20:37 | Inpatient (IN) | payer BC ==
--- OUTSIDE RECORDS SUMMARY | 2018-10-26 20:40 | XMS REPORT | Clinical Summary ---
:1960 Author Organization [facility] Address [address] [place] [address] Care Team Providers Name Role Phone Asked, No Pcp Primary Care Provider Unavailable Allergies No Known Allergies Medications Medication Sig Dispensed Refills Start Date End Date Status pregabalin (LYRICA) Take 300 mg by 0 Active 300 MG capsule mouth 3 (three) times a day. valsartan (DIOVAN) 160 Take 160 mg by 0 Active MG tablet mouth daily. insulin GLARGINE Inject 45 Units 0 Active (LANTUS) 100 unit/mL under the skin 2 injection (vial) (two) times a day. omega-3 acid ethyl Take 2 g by mouth 0 Active esters (LOVAZA) 1 gram 2 (two) times a capsule day. Active Problems Problem Noted Date Hepatocellular carcinoma 12/02/2016 Non-alcoholic cirrhosis 12/02/2016 Chronic hepatitis C 12/02/2016 Social History Tobacco Use Types Packs/Day Years Used Date Former Smoker Quit: 2013 Sex Assigned at Date Recorded Not on file Job Start Date Occupation Industry Not on file Not on file Not on file Travel History Travel Start Travel End No recent travel history available. Last Filed Vital Signs Not on file Plan of Treatment Health Maintenance Due Date Last Done Comments COLON CANCER SCREENING 2010 SHINGLES VACCINES (1 of 2) 2010 INFLUENZA VACCINE 04/29/2018 Results Not on fileafter 10/25/2017 Insurance Payer Benefit Plan / Group Subscriber ID Type Phone Address BCBS BCBS OUT OF STATE xxxxxxxxxxxxxxx PPO Advance Directives Patient has advance care planning documents on file. For more information, please contact:Lam [id number] [place] [address]
[2018-10-26 21:56] LABS: ALT/SGPT 114 U/L (12-78); Alkaline Phosphatase 557 U/L (45-117); BUN Blood Urea Nitrogen 71 mg/dL (7-18); Bicarbonate 19 mmol/L (21-32); Bilirubin Direct 1.1 mg/dL (0-0.2); Glucose Level 141 mg/dL (74-106); Potassium 5.6 mmol/L (3.5-5.1); Protein, Total 8.1 g/dL (6.4-8.2)
[2018-10-26 21:57] LABS: Amylase Level 49 U/L (25-115); CKMB Creatine Kinase MB < 1.0 ng/mL (0.3-3.6); Creatine Phosphokinase 32 U/L (39-308); Lipase 360 U/L (73-393); Troponin (Emerg Dept Use Only) 0.03 ng/mL (0.0-0.045)
[2018-10-26 22:00] LABS: Sodium Level 132 mmol/L (136-145)
[2018-10-26 22:01] LABS: AST/SGOT 337 U/L (15-37); Protime INR 1.19
--- NOTE | 2018-10-26 22:12 | ER ---
Nurse's Notes [facility] Name: Vidal Monson Age: 57 yrs Sex: Male : 1960 Arrival Date: 10/26/2018 Time: 20:42 Bed 19 Private MD: Elmer Flynn Diagnosis: Encephalopathy, unspecified;Hyperammonemia Presentation: 10/26 20:55 Presenting complaint: Significant other states: pt started with AMS this morning. pt ak1 had lactulose at 1130, 1730, 1930. pt seen at [facility] for liver cancer. pt sees Dr. Flynn here, pt with standing appointment for paracentesis every Friday. Transition of care: patient was not received from another setting of care. Onset of symptoms was October 26, 2018. Risk Assessment: Do you want to hurt yourself or someone else? Patient reports no desire to harm self or others. Initial Sepsis Screen: Does the patient meet any 2 criteria? RR > 20 per min. Altered Mental Status. HR > 90 bpm. Yes. Care prior to arrival: None. 20:55 Method Of Arrival: Ambulatory ak1 20:55 Acuity: JO 2 ak1 21:36 Initial Sepsis Screen: Does the patient have a suspected source of infection? No. jd3 Patient's initial sepsis screen is negative. Historical: - Allergies: 20:58 tramadol; ak1 - Home Meds: 20:58 celecoxib 200 mg Oral cap 1 cap 2 times per day [Active]; hydromorphone 2 mg Oral tab 1 ak1 tab every 6 hours [Active]; hydrochlorothiazide 12.5 mg Oral tab 1 tab once daily [Active]; Lyrica 300 mg Oral 3 times per day [Active]; Protonix 40 mg Oral TbEC 1 tab once daily [Active]; losartan 50 mg Oral tab 1 tab once daily [Active]; Lantus 100 unit/mL Sub-Q soln 45 unit daily [Active]; Lactulose Oral [Active]; - PMHx: 20:58 Diabetes - IDDM; GERD; Hepatitis; liver cancer; ak1 - PSHx: 20:58 port o cath placement; ak1 - Immunization history:: Adult Immunizations unknown. - Social history:: Smoking status: Patient/guardian denies using tobacco. - Ebola Screening: : No symptoms or risks identified at this time. Screenin:36 Abuse screen: Denies threats or abuse. Nutritional screening: No deficits noted. jd3 Tuberculosis screening: No symptoms or risk factors identified. Fall Risk Ambulatory Aid- None/Bed Rest/Nurse Assist (0 pts). Gait- Weak (10 pts.). Mental Status- Oriented to own ability (0 pts). Total Escobar Fall Scale indicates No Risk (0-24 pts). Assessment: 20:56 General: Appears uncomfortable, Behavior is calm, cooperative. Pain: Denies pain. jd3 Neuro: Level of Consciousness is awake, alert, obeys commands, confused, Oriented to person, place. Cardiovascular: Capillary refill < 3 seconds Patient's skin is warm and dry. Respiratory: Airway is patent Respiratory effort is even, unlabored, Respiratory pattern is regular, symmetrical, Breath sounds are clear bilaterally. GI: Abdomen is round Bowel sounds present X 4 quads. Abd is soft and non tender X 4 quads. : No signs and/or symptoms were reported regarding the genitourinary system. EENT: No signs and/or symptoms were reported regarding the EENT system. Derm: Skin is intact, Skin is dry, Skin is normal, Skin temperature is warm. Musculoskeletal: Circulation, motion, and sensation intact. Range of motion: intact in all extremities. 21:57 Reassessment: Patient appears in no apparent distress at this time. No changes from jd3 previously documented assessment. Patient and/or family updated on plan of care and expected duration. Pain level reassessed. 23:39 Reassessment: Patient appears in no apparent distress at this time. No changes from jd3 previously documented assessment. Patient and/or family updated on plan of care and expected duration. Pain level reassessed. 10/27 00:19 Reassessment: Patient appears in no apparent distress at this time. No changes from jd3 previously documented assessment. Patient and/or family updated on plan of care and expected duration. Pain level reassessed. awaiting room assignment. 01:09 Reassessment: Patient appears in no apparent distress at this time. Patient and/or jd3 family updated on plan of care and expected duration. Pain level reassessed. Vital Signs: 10/26 20:55 BP 107 / 62; Pulse 126; Resp 22; Temp 98.1(O); Pulse Ox 95% on R/A; Weight 106.59 kg ak1 (R); Height 6 ft. 1 in. (185.42 cm) (R); Pain 0/10; 21:57 BP 110 / 68; Pulse 115; Resp 20 S; Pulse Ox 96% on R/A; jd3 23:39 BP 104 / 76; Pulse 104; Resp 19 S; Pulse Ox 96% on R/A; jd3 10/27 00:19 BP 94 / 52; Pulse 100; Resp 19 S; Pulse Ox 97% on R/A; jd3 01:09 BP 101 / 50; Pulse 101; Resp 18 S; Pulse Ox 96% on R/A; jd3 10/26 20:55 Body Mass Index 31.00 (106.59 kg, 185.42 cm) ak1 ED Course: 10/26 20:42 Patient arrived in ED. am2 20:42 Elmer Flynn MD is Private Physician. am2 20:55 Arias Lew MD is Attending Physician. tw4 20:56 Jose Crouch RN is Primary Nurse. jd3 20:57 Triage completed. ak1 20:58 Arm band placed on Patient placed in an exam room, on a stretcher, on pulse oximetry, ak1 Patient notified of wait time. 21:25 Inserted saline lock: 20 gauge in left hand, using aseptic technique. Blood collected. jd3 21:36 Patient has correct armband on for positive identification. Placed in gown. Bed in low jd3 position. Call light in reach. Side rails up X2. Adult w/ patient. 21:59 Notified ED physician of a critical lab result(s). potassium 5.6, ast 337. fc 22:10 Margarito Quigley MD is Hospitalizing Provider. tw4 10/27 01:25 No provider procedures requiring assistance completed. Patient admitted, IV remains in jd3 place. Administered Medications: 10/26 22:24 Drug: Lactulose 30 grams Volume: 45 ml; Route: PO; jd3 23:40 Follow up: Response: No adverse reaction jd3 Point of Care Testing: Blood Glucose: 21:25 Blood Glucose: 145 mg/dL; jd3 Ranges: Outcome: 22:11 Decision to Hospitalize by Provider. tw4 10/27 01:39 Admitted to Med/surg accompanied by nurse, via wheelchair, room 220, with chart, Report jd3 called to Amber LOREDO Condition: stable Instructed on the need for admit, Demonstrated understanding of instructions. 01:55 Patient left the ED. jd3 Signatures: Jennifer Alaniz RN RN fc Krenek, Amber, RN RN ak1 Thania Lamb am2 Jose Crouch RN RN jd3 Arias Lew MD MD tw4 Corrections: (The following items were deleted from the chart) 02:03 02:01 Patient left the ED. jd3 jd3
--- NOTE | 2018-10-26 22:12 | EDPHYS ---
Physician Documentation [facility] Name: Vidal Monson Age: 57 yrs Sex: Male : 1960 Arrival Date: 10/26/2018 Time: 20:42 Bed 19 Private MD: Elmer Flynn ED Physician Arias Lew HPI: 10/26 22:57 This 57 yrs old Male presents to ER via Ambulatory with complaints of Altered tw4 Mental Status, Vomiting. 22:57 The patient presents with decreased mental status, decreased responsiveness. Onset: The tw4 symptoms/episode began/occurred 2 day(s) ago. Possible causes: hepatic encephalopathy. Associated signs and symptoms: The patient has no apparent associated signs or symptoms. Current symptoms: In the emergency department the patient's symptoms are unchanged from the initial presentation. Unable to obtain HPI due to altered mental status. The patient has experienced similar episodes in the past. Historical: - Allergies: 20:58 tramadol; ak1 - Home Meds: 20:58 celecoxib 200 mg Oral cap 1 cap 2 times per day [Active]; hydromorphone 2 mg Oral tab 1 ak1 tab every 6 hours [Active]; hydrochlorothiazide 12.5 mg Oral tab 1 tab once daily [Active]; Lyrica 300 mg Oral 3 times per day [Active]; Protonix 40 mg Oral TbEC 1 tab once daily [Active]; losartan 50 mg Oral tab 1 tab once daily [Active]; Lantus 100 unit/mL Sub-Q soln 45 unit daily [Active]; Lactulose Oral [Active]; - PMHx: 20:58 Diabetes - IDDM; GERD; Hepatitis; liver cancer; ak1 - PSHx: 20:58 port o cath placement; ak1 - Immunization history:: Adult Immunizations unknown. - Social history:: Smoking status: Patient/guardian denies using tobacco. - Ebola Screening: : No symptoms or risks identified at this time. ROS: 22:57 Constitutional: Negative for fever, chills, and weight loss, Eyes: Negative for injury, tw4 pain, redness, and discharge, Cardiovascular: Negative for chest pain, palpitations, and edema, Respiratory: Negative for shortness of breath, cough, wheezing, and pleuritic chest pain, Abdomen/GI: Negative for abdominal pain, nausea, vomiting, diarrhea, and constipation, MS/Extremity: Negative for injury and deformity. 22:57 Neuro: Positive for altered mental status, Negative for altered mental status, dizziness, gait disturbance, seizure activity, speech changes, tinnitus, tremor. Exam: 22:57 Constitutional: This is a well developed, well nourished patient who is awake, alert, tw4 and in no acute distress. Head/Face: Normocephalic, atraumatic. Chest/axilla: Normal chest wall appearance and motion. Nontender with no deformity. No lesions are appreciated. Cardiovascular: Regular rate and rhythm with a normal S1 and S2. No gallops, murmurs, or rubs. Normal PMI, no JVD. No pulse deficits. Respiratory: Lungs have equal breath sounds bilaterally, clear to auscultation and percussion. No rales, rhonchi or wheezes noted. No increased work of breathing, no retractions or nasal flaring. Abdomen/GI: Soft, non-tender, with normal bowel sounds. No distension or tympany. No guarding or rebound. No evidence of tenderness throughout. Back: No spinal tenderness. No costovertebral tenderness. Full range of motion. 22:57 Neuro: Orientation: Not oriented to time, situation. Vital Signs: 20:55 BP 107 / 62; Pulse 126; Resp 22; Temp 98.1(O); Pulse Ox 95% on R/A; Weight 106.59 kg ak1 (R); Height 6 ft. 1 in. (185.42 cm) (R); Pain 0/10; 21:57 BP 110 / 68; Pulse 115; Resp 20 S; Pulse Ox 96% on R/A; jd3 23:39 BP 104 / 76; Pulse 104; Resp 19 S; Pulse Ox 96% on R/A; jd3 10/27 00:19 BP 94 / 52; Pulse 100; Resp 19 S; Pulse Ox 97% on R/A; jd3 01:09 BP 101 / 50; Pulse 101; Resp 18 S; Pulse Ox 96% on R/A; jd3 10/26 20:55 Body Mass Index 31.00 (106.59 kg, 185.42 cm) ak1 MDM: 10/26 20:55 Patient medically screened. tw4 22:57 Differential Diagnosis: CVA, electrolyte abnormality, alcohol intoxication, tw4 hypoglycemia, intracranial bleed, overdose, pneumonia, seizure, sepsis, TIA, UTI, volume depletion. Data reviewed: vital signs, nurses notes. Counseling: I had a detailed discussion with the patient and/or guardian regarding: the historical points, exam findings, and any diagnostic results supporting the discharge/admit diagnosis, lab results, radiology results. Physician consultation: Margarito Quigley MD was called at 11:00, regarding admission, to the medical/surgical unit. patient's condition, and will see patient in ED. 10/26 21:02 Order name: Troponin (emerg Dept Use Only) tw10/26 21:02 Order name: Magnesium tw4 10/26 21:02 Order name: Lipase 4 10/26 21:02 Order name: Hepatic Function 10/26 21:02 Order name: CPK 4 10/26 21:02 Order name: Ckmb 4 10/26 21:02 Order name: Amylase, Serum tw4 10/26 21:02 Order name: Basic Metabolic Panel 10/26 21:02 Order name: CBC with Diff 10/26 21:02 Order name: Protime (+inr) 10/26 21:02 Order name: Ptt, Activated tw4 10/26 21:02 Order name: AMMONIA; Complete Time: 22:01 10/27 00:27 Order name: Manual Differential EDNY 10/26 21:02 Order name: Call for Old Records 10/26 21:02 Order name: Call for Old EKG 10/26 21:02 Order name: EKG; Complete Time: 21:03 tw4 10/27 01:03 Order name: Urinalysis EDMS 10/27 01:03 Order name: CBC with Automated Diff EDMS 10/27 01:03 Order name: CBC with Automated Diff EDMS 10/27 01:03 Order name: Comprehensive Metabolic Panel EDMS 10/27 01:03 Order name: Comprehensive Metabolic Panel EDMS 10/27 01:03 Order name: Magnesium EDMS 10/27 01:03 Order name: Magnesium EDMS 10/27 01:03 Order name: Phosphorus EDMS 10/27 01:03 Order name: Phosphorus EDMS 10/27 01:04 Order name: Ammonia EDMS 10/27 01:04 Order name: Ammonia EDMS 10/27 01:04 Order name: Ammonia EDMS 10/26 21:02 Order name: Accucheck; Complete Time: 21:33 10/26 21:02 Order name: Cardiac monitoring; Complete Time: 21:14 10/26 21:02 Order name: EKG - Nurse/Tech; Complete Time: 21:14 10/26 21:02 Order name: IV Saline Lock; Complete Time: 21:33 10/26 21:02 Order name: Labs collected and sent; Complete Time: 21:33 10/26 21:02 Order name: NPO; Complete Time: 21:05 10/26 21:02 Order name: O2 Per Protocol; Complete Time: 21:05 10/26 21:02 Order name: O2 Sat Monitoring; Complete Time: 21:10/26 21:02 Order name: Stroke Swallow Screen; Complete Time: 21:05 10/27 01:03 Order name: Renal EDMS EC/29 01:26 Rate is 116 beats/min. Rhythm is regular, Sinus tachycardia. QRS [place] is Normal. NM tw4 interval is normal. QRS interval is normal. QT interval is normal. No Q waves. T waves are Normal. No ST changes noted. Clinical impression: NSR w/ Non-specific ST/T Changes. Interpreted by me. Reviewed by me. Administered Medications: 10/26 22:24 Drug: Lactulose 30 grams Volume: 45 ml; Route: PO; jd3 23:40 Follow up: Response: No adverse reaction jd3 Point of Care Testing: Blood Glucose: 21:25 Blood Glucose: 145 mg/dL; jd3 Ranges: Critical Glucose Levels:Adult <50 mg/dl or >400 mg/dl <40 mg/dl or >180 mg/dl Disposition: 10/27 05:19 Chart complete. tw4 Disposition: 10/26/18 22:11 Hospitalization ordered by Margarito Quigley for Inpatient Admission. Preliminary diagnosis are Encephalopathy, unspecified, Hyperammonemia. - Bed requested for Telemetry/MedSurg (Inpatient). - Status is Inpatient Admission. jd3 - Condition is Stable. - Problem is an ongoing problem. - Symptoms are unchanged. UTI on Admission? No Signatures: Dispatcher [employer] EDNY Kierra Vincent RN RN ak1 Rita Kumar RN RN cg Davies, Jonathon, RN RN jd3 Arias Lew MD MD tw4 Corrections: (The following items were deleted from the chart) 00:28 10/26 22:36 CBC Smear Scan ordered. EDMS EDMS 10/27 01:05 10/26 22:11 Hospitalization Ordered by Margarito Quigley MD for Inpatient Admission. cg Preliminary diagnosis is Encephalopathy, unspecified; Hyperammonemia. Bed requested for Telemetry/MedSurg (Inpatient). Status is Inpatient Admission. Condition is Stable. Problem is an ongoing problem. Symptoms are unchanged. UTI on Admission? No. tw4 10/27 02:01 01:05 10/26/2018 22:11 Hospitalization Ordered by Margarito Quigley MD for Inpatient jd3 Admission. Preliminary diagnosis is Encephalopathy, unspecified; Hyperammonemia. Bed requested for Telemetry/MedSurg (Inpatient). Status is Inpatient Admission. Condition is Stable. Problem is an ongoing problem. Symptoms are unchanged. UTI on Admission? No. cg
[2018-10-26] MEDS ORDERED: LACTULOSE 20 GM/30 ML UCUP ONE (22:25)
[2018-10-26 22:31] LABS: Absolute Lymphocytes (CBC) 0.4 K/uL (0.7-4.9); Absolute Monocytes 1.3 K/uL (0.1-1.3); Absolute Neutrophil 5.7 K/uL (1.8-8.0); Basophils % 0.5 % (0-1.3); Eosinophils % 0.8 % (0-4.4); Lymphocytes % 5.8 % (15.3-44.8); MPV 10.6 fL (7.6-11.3); Monocytes % 16.6 % (3.3-12.3)
[2018-10-27 00:26] LABS: Blood Morphology Comment NOTED (NOT SEEN); Macrocytosis 1+; Platelet Estimate ADEQ
[2018-10-27] MEDS ORDERED: ALPRAZOLAM 0.25 MG TABLET PO PRN (00:59)
[2018-10-27] MEDS ORDERED: ACETAMINOPHEN 500 MG TAB PO PRN (00:59)
[2018-10-27] MEDS ORDERED: ONDANSETRON 4 MG/2 ML VIAL IV PRN (00:59)
[2018-10-27] MEDS: NA CHLORIDE 0.9% 1,000 ML IV SCH ×3 (02:24→20:47)
[2018-10-27] MEDS: LACTULOSE 20 GM/30 ML UCUP PO SCH ×4 (02:24→20:47)
[2018-10-27 02:32] VITALS: BMI 29.2
[2018-10-27] MEDS ORDERED: GLUCAGON 1 MG/VIAL IM PRN (02:58)
[2018-10-27] MEDS ORDERED: D50W 25 GM/50 ML SYRINGE IV PRN (02:58)
[2018-10-27 06:42] LABS: Absolute Lymphocytes (CBC) 0.5 K/uL (0.7-4.9); Absolute Monocytes 0.9 K/uL (0.1-1.3); Basophils % 0.4 % (0-1.3); Eosinophils % 0.2 % (0-4.4); Lymphocytes % 8.5 % (15.3-44.8); MPV 10.8 fL (7.6-11.3); Monocytes % 17.1 % (3.3-12.3); RBC Red Blood Cell Count 3.24 M/uL (4.33-5.43)
[2018-10-27 06:46] LABS: Albumin 2.7 g/dL (3.4-5.0); Bilirubin Total 2.2 mg/dL (0.2-1.0); Magnesium 3.2 mg/dL (1.8-2.4); Potassium 5.5 mmol/L (3.5-5.1); Protein, Total 7.6 g/dL (6.4-8.2)
[2018-10-27] MEDS: INSULIN 70/30 100 UNITS/ML SQ SCH ×2 (07:30→16:15)
[2018-10-27] MEDS: Rifaximin 550 MG Tab PO SCH ×2 (09:35→20:47)
--- NOTE | 2018-10-27 12:05 | RAD REPORT ---
EXAM DESCRIPTION: US - Paracentesis Proc Guidance - 10/27/2018 11:59 am CLINICAL HISTORY: ascites Ascites COMPARISON: Paracentesis Proc Guidance dated 10/21/2018 FINDINGS: Informed consent was obtained and time-out was performed. Patient's abdomen was prepped and draped in the usual sterile fashion. 1% lidocaine was used for loca l anesthetic purposes. A small skin incision was made along the right lower quadrant. A paracentesis catheter was guided int o the peroneal cavity under sonographic guidance. A large volume paracentesis was performed. The patient tolerated the procedure well. Patient was administered IV albumin per protocol following the procedure. IMPRESSION: Successful ultrasound-guided paracentesis.
--- NOTE | 2018-10-27 17:10 | EKG ---
Test Date: 2018-10-26 Test Time: 21:08:43 Cracking Unit Operator: HEMA MEASUREMENT RESULTS: Intervals: Rate: 116 [place]: 190 QRSD: 124 QT: 324 QTc: 450 [place]: P: 36 [place]: 190 QRS: -70 T: 76 INTERPRETIVE STATEMENTS: Sinus tachycardia Left anterior fascicular block Septal infarct, age undetermined Possible Lateral infarct, age undetermined Abnormal ECG Compared to ECG 07/02/2018 07:03:03 Left anterior fascicular block now present Sinus rhythm no longer present Atrial premature complex(es) no longer present First degree AV block no longer present Aberrant conduction of supraventricular beat(s) no longer present Left-axis deviation no longer present Myocardial infarct finding still present Electronically Signed On 10-27-18 17:07:17 ALARM OPERATOR by Kuldeep Collins
--- NOTE | 2018-10-27 21:06 | P.HP ---
Certification for Inpatient Patient admitted to: Inpatient With expected LOS: >2 Midnights Patient will require the following post-hospital care: None Practitioner: I am a practitioner with admitting privileges, knowledge of patient current condition, hospital course, and medical plan of care. Services: Services provided to patient in accordance with Admission requirements found in Title 42 Section 412.3 of the Code of Federal Regulations Patient History Date of Service: 10/27/18 Reason for admission: altered mental status History of Present Illness: The patient is a 57-year-old gentleman who came to the hospital with confusion. Patient was found to have hepatic encephalopathy and acute renal insufficiency. The patient was started on lactulose in the ER. Clinically he is starting to do better. He will also be given IV hydration for his renal insufficiency. Will monitor him closely. Recheck ammonia level in the morning monitor his renal function and nephrology consultation. He may need paracentesis. If we do will need to ensure we will supplement albumin because of his renal insufficiency. He will be admitted for inpatient admission at this time. Allergies tramadol Allergy (Verified 09/25/18 10:47) Unknown Home Medications: Hydromorphone [Dilaudid] 2 mg PO Q6HP PRN 06/21/18 Insulin Glargine,Hum.rec.anlog [Basaglar Kwikpen U-100] 75 units SQ DAILY Lactulose [Cephulac] 20 gm PO QID 06/21/18 Pregabalin [Lyrica] 300 mg PO TID 06/21/18 Celecoxib [Celebrex*] 100 mg PO BID 10/27/18 Mv-Mn/Folic Acid/Lutein/Xqf708 [Mens Multivit High Potency Tab] 1 tab PO DAILY 10/27/18 - Past Medical/Surgical History Has patient received pneumonia vaccine in the past: No Diabetic: Yes -: Diabetes -: GERD -: Hepatocellular cancer -: Hepatitis-C -: fatty tumor removed - Family History Mother Medical History: Diabetes Father Notes: mva in 30s Brother Notes: brain cancer and lung cancer r/t substance abuse - Social History Smoking Status: Former smoker Alcohol use: No CD- Drugs: No Caffeine use: No Place of Residence: Home Review of Systems 10-point ROS is otherwise unremarkable Physical Examination - Vital Signs Temperature: 97 F Blood Pressure: 112/63 Pulse: 94 Respirations: 19 Pulse Ox (%): 97 - Physical Exam General: Disheveled, Delirious HEENT: Atraumatic, PERRLA, Mucous membr. moist/pink, EOMI, Sclerae nonicteric Neck: Supple, 2+ carotid pulse no bruit, No LAD, Without JVD or thyroid abnormality Respiratory: Diminished Cardiovascular: Regular rate/rhythm, Normal S1 S2, No murmurs Gastrointestinal: Normal bowel sounds, Soft and benign, Non-distended, No tenderness Musculoskeletal: No clubbing, No swelling, No tenderness Integumentary: No rashes Neurological: Normal gait, Normal speech, Normal strength at 5/5 x4 extr, Normal tone, Sensation intact, Cranial nerves 3-12 intact, Normal affect Lymphatics: No axilla or inguinal lymphadenopathy - Studies Laboratory Data (last 24 hrs) 10/26/18 21:25: PT 14.1 H, INR 1.19, APTT 29.6 10/26/18 21:25: WBC 7.5, Hgb 12.5 L, Hct 37.0 L, Plt Count 127 L D 10/26/18 21:25: Sodium 132 L, Potassium 5.6 H*, BUN 71 H, Creatinine 2.43 H, Glucose 141 H, Magnesium 3.0 H D, Total Bilirubin 2.0 H, AST 337 H*, ALT 114 H, Alkaline Phosphatase 557 H, Amylase 49, Lipase 360 Assessment & Plan - Problems (Diagnosis) (1) Acute renal insufficiency Current Visit: Yes Status: Acute (2) Acute hepatic encephalopathy Onset Date: 07/06/18 Current Visit: No Status: Acute (3) Altered mental status Onset Date: 06/22/18 Current Visit: No Status: Acute Qualifiers: - Plan -IV hydration -lactulose and rifaximin -recheck renal function and electrolytes -MRI of the brain if not improving -bed check in place -physical therapy evaluation once mentation is improved -discuss code status with family Discharge Plan: Home Plan to discharge in: Greater than 2 days - Advance Directives Does patient have a Living Will: Yes Does patient have a Durable POA for Healthcare: Yes - Code Status/Comfort Care Code Status Assessed: Yes Code Status: Full Code Critical Care: No Time Spent Managing PTS Care (In Minutes): 45
[2018-10-28] MEDS: LACTULOSE 20 GM/30 ML UCUP PO SCH ×3 (02:59→13:34)
[2018-10-28 05:45] LABS: Albumin 2.8 g/dL (3.4-5.0); Bilirubin Total 2.2 mg/dL (0.2-1.0); Potassium 5.3 mmol/L (3.5-5.1); Protein, Total 7.9 g/dL (6.4-8.2)
[2018-10-28 07:20] LABS: Absolute Lymphocytes (CBC) 0.4 K/uL (0.7-4.9); Absolute Monocytes 0.9 K/uL (0.1-1.3); Absolute Neutrophil 3.9 K/uL (1.8-8.0); Basophils % 0.5 % (0-1.3); Hematocrit 35.5 % (39.6-49.0); Lymphocytes % 7.1 % (15.3-44.8); MPV 10.9 fL (7.6-11.3); Monocytes % 16.7 % (3.3-12.3)
[2018-10-28 07:42] LABS: Blood Morphology Comment NOT SEEN (NOT SEEN); Platelet Estimate ADEQ; Urine White Blood Cell Casts OK
[2018-10-28] MEDS ORDERED: NA CHLORIDE 0.9% 500 ML IV ONE (07:47)
[2018-10-28] MEDS: NA CHLORIDE 0.9% 1,000 ML IV SCH (07:50)
[2018-10-28] MEDS: Rifaximin 550 MG Tab PO SCH (09:15)
[2018-10-28 12:57] VITALS: O2SAT 98
[2018-10-28 17:25] VITALS: BP 108/57; TEMP 97.7
--- NOTE | 2018-10-29 16:21 | HP ---
Date of Admission: 10/27/2018 Entrance Complaint: Altered mental status. History Of Present Illness: The patient over the past years had undergone multiple paracentesis for a marked amount of ascites, anywhere from 5-7 L being drawn off on a regular basis. He was diagnosed with hep C, which was progressive. He has been seen at [facility] as well as in [place]. In the p ast, he has had some significant altered mental status associated with increased ammonia levels, is s uspected. This time again he is a brought in by the family and this was actually confirmed to be so with his ammonia level in 120s. Past Medical History: As above. Family History: Noncontributory. Social History: Nonsmoker and nondrinker. Physical Examination: General: Patient is mildly confused, middle-aged male. Vital Signs: Stable. Head and Neck: Normocephalic. Pupils equal and reactive to light and accommodation. Fundi negative . Trachea midline. Thyroid not palpable. ENT: Negative. Chest: Clear to P and A. Cardiovascular: PMI in midclavicular line. Heart: Sounds normal. Peripheral pulses are present and equal bilaterally. Abdomen: Ascites noted significant. Bowel sounds normal. Extremities: Marked dehydration. Good tone and movement bilaterally. Reflexes physiologic. Rectal: Deferred. Impression: Altered mental status secondary to increased ammonia level and ascites, liver cancer. Plan: Patient will be admitted, treated with IV fluids and correct his electrolytes, and follow up w ith his pneumonia. During his hospital stay, he may require a paracentesis. HR/MODL Voice ID: [id number]
--- NOTE | 2018-10-30 08:33 | PN ---
Date of Progress Note: 10/27/2018 The patient underwent paracentesis with over 6 L being removed. Seemed to tolerated well. His menta l status has improved considerably and his ammonia levels dropped into the 80s. HR/MODL Voice ID: [id number] Report ID: [id number]
--- NOTE | 2018-10-30 08:36 | PN ---
Date of Progress Note: 10/28/2018 The patient still feels rather weak. He has not had any urination during the day. Clinically was st ill dehydrated, although not near as marked as when he was admitted. He had been bolused on 1 occasi on and will be rebolused and then discharged to follow up on as necessary basis. HR/MODL Voice ID: [id number] Report ID: [id number]
== END 2018-10-28 17:50 | disposition home or self-care (01) | DRG 442 ==
LOC: ER 20:37 → ERHOLD 10-27 01:29 → 2ND 10-27 01:43
PROVIDERS: ADMIT Family Medicine; ATTEND Family Medicine
PROC: 0W9G3ZZ Drainage of Peritoneal Cavity, Percutaneous Approach (ICD-10-PCS; principal; 2018-10-27)
DX: K72.90 Hepatic failure, unspecified without coma (principal); R18.8 Other ascites; C22.0 Liver cell carcinoma; B19.20 Unspecified viral hepatitis C without hepatic coma; E86.0 Dehydration; E11.9 Type 2 diabetes mellitus without complications; Z79.4 Long term (current) use of insulin; K21.9 Gastro-esophageal reflux disease without esophagitis; Z87.891 Personal history of nicotine dependence; N28.9 Disorder of kidney and ureter, unspecified
CPT/HCPCS: 36415; 49083; 80048; 80053; 80076; 82140; 82150; 82550; 82553; 82962; 83690; 83735; 84100; 84484; 85025; 85610; 85730; 93005; 99285; J2405; J7030

== ENCOUNTER 2018-11-02 13:50 | Inpatient (IN) | payer BC ==
--- OUTSIDE RECORDS SUMMARY | 2018-11-02 13:53 | XMS REPORT | Clinical Summary ---
:1960 Author Organization [facility] Address [address] [place] [address] Care Team Providers Name Role Phone Asked, [...] INFLUENZA VACCINE 04/29/2018 Results Not on fileafter 11/01/2017 Insurance Payer Benefit Plan / Group Subscriber ID Type Phone Address BCBS BCBS OUT OF STATE xxxxxxxxxxxxxxx PPO Advance Directives Patient has advance care planning documents on file. For more information, please contact:Lam [id number] [place] [address]
[2018-11-02] MEDS ORDERED: ONDANSETRON 4 MG/2 ML VIAL ONE (16:35)
[2018-11-02] MEDS ORDERED: NA CHLORIDE 0.9% 1,000 ML ONE (16:35)
[2018-11-02] MEDS ORDERED: FAMOTIDINE 20 MG/2 ML VIAL IV ONE (16:35)
[2018-11-02] MEDS ORDERED: LACTULOSE 20 GM/30 ML UCUP ONE (16:35)
--- NOTE | 2018-11-02 16:36 | RAD REPORT ---
EXAM DESCRIPTION: RAD - Abdomen Acute Series - 11/02/2018 4:26 pm CLINICAL HISTORY: Abdominal pain FINDINGS: Lungs appear clear of acute infiltrate. Free air is not seen beneath the diaphragm. Air is present within a few mildly dilated loops of small bowel. Air and stool are present within the colon. This is a nonspecific bowel gas pattern. It may indicate a focal ileus or enteritis. A mechan ical obstruction is not suspected Hepatic calcification is again noted
--- NOTE | 2018-11-02 16:55 | ER ---
Nurse's Notes [facility] Name: Vidal Monson Age: 57 yrs Sex: Male : 1960 Arrival Date: 11/02/2018 Time: 13:54 Bed 6 Private MD: Elmer Flynn Diagnosis: Weakness;Altered mental status, unspecified;Encephalopathy, unspecified;Vomiting;Unspecified cirrhosis of liver;Acute kidney failure;Hyperkalemia Presentation: 11/02 14:02 Presenting complaint:. Presenting complaint: Significant other states: Vomiting since sg yesterday reports giving pt PO zofran and the vomiting has stopped, reports he is altered and acting the way he normally does when his ammonia is high, BM x1 yesterday. Transition of care: patient was not received from another setting of care. Onset of symptoms was November 02, 2018. Risk Assessment: Do you want to hurt yourself or someone else? Patient reports no desire to harm self or others. Initial Sepsis Screen: Does the patient meet any 2 criteria? No. Patient's initial sepsis screen is negative. Does the patient have a suspected source of infection? No. Patient's initial sepsis screen is negative. Care prior to arrival: None. 14:02 Method Of Arrival: Ambulatory sg 14:02 Acuity: JO 3 sg Historical: - Allergies: 14:00 tramadol; sg - PMHx: 14:00 Diabetes - IDDM; GERD; Hepatitis; liver cancer; sg - PSHx: 14:00 port o cath placement; sg - Immunization history:: Adult Immunizations up to date. - Social history:: Smoking status: Patient/guardian denies using tobacco. - Ebola Screening: : Patient negative for fever greater than or equal to 101.5 degrees Fahrenheit, and additional compatible Ebola Virus Disease symptoms Patient denies exposure to infectious person Patient denies travel to an Ebola-affected area in the 21 days before illness onset No symptoms or risks identified at this time. - Family history:: not pertinent. Screenin:59 Abuse screen: Denies threats or abuse. Denies injuries from another. Nutritional iw screening: No deficits noted. Tuberculosis screening: No symptoms or risk factors identified. Fall Risk IV access (20 points). Assessment: 16:00 General: Appears ill. General: Denies fever. Pain: Unable to use pain scale. Patient is iw disoriented. Neuro: Level of Consciousness is drowsy. Oriented to person, place, Moves all extremities. Cardiovascular: Heart tones S1 S2 present Patient's skin is warm and dry. Respiratory: Respiratory effort is even, unlabored, Respiratory pattern is regular, symmetrical. GI: Abdomen is round distended, family states pt is due for paracentesis on Friday Parent/caregiver reports the patient having nausea, vomiting. Derm: Skin is intact, with poor turgor Skin is jaundiced. Musculoskeletal: Range of motion: intact in all extremities. 17:08 Reassessment: Patient appears in no apparent distress at this time. pt still drowsy but iw responds appropriately to verbal stimuli, family at bedside. 18:18 Reassessment: pt still very drowsy, respirations even, unlabored, oriented to person, iw attempts to follow commands, tolerating Lactulose well. 19:47 Reassessment: Patient appears in no apparent distress at this time. No changes from lp1 previously documented assessment. Patient and/or family updated on plan of care and expected duration. Pain level reassessed. Patient is alert, oriented x 3, equal unlabored respirations, skin warm/dry/pink. Patient denies pain at this time. Respiratory: Airway is patent Respiratory effort is even, unlabored, Respiratory pattern is regular, symmetrical. Vital Signs: 14:06 BP 101 / 58; Pulse 88; Resp 17; Pulse Ox 100% on R/A; Weight 111.13 kg; Pain 3/10; sg 17:59 BP 106 / 66; Pulse 80; Resp 14; Pulse Ox 99% on R/A; Pain 0/10; iw 18:18 BP 100 / 55; Pulse 82; Resp 14 S; Temp 98.3(TE); Pulse Ox 99% on R/A; Pain 0/10; iw 19:47 BP 103 / 64; Pulse 82; Resp 16; Temp 98.4(O); Pulse Ox 100% on R/A; Pain 0/10; lp1 ED Course: 13:54 Patient arrived in ED. sb2 13:55 Elmer Flynn MD is Private Physician. sb2 14:00 Arm band placed on. sg 14:06 Triage completed. sg 14:50 Osman Brock MD is Attending Physician. beverly 15:53 EKG done, by computer forensics technician. reviewed by Osman Brock MD. sm3 16:06 Erin Jaeger, RN is Primary Nurse. iw 16:26 Abdomen Acute Series XRAY In Process Unspecified. EDMS 16:53 Elmer Flynn MD is Hospitalizing Provider. beverly 17:22 Missed attempt(s): 24 gauge in left hand. Bleeding controlled, band aid applied, ch catheter tip intact. 17:40 No provider procedures requiring assistance completed. Accessed Port-a-Cath. Blood iw collected. using accessed w/ # 20 Smith needle, Clean \T\ dry. Dressing intact. Good blood return. Flushes easily. 19:13 Primary Nurse role handed off by Erin Jaeger, RN ed1 19:13 Britney Dobbs, GERTRUDE is Primary Nurse. ed1 19:14 Patient admitted, IV remains in place. iw 19:48 Awaiting bed assignment. lp1 Administered Medications: 17:40 Drug: NS 0.9% 1000 ml Route: IV; Rate: 75 ml/hr; Site: Port-a-cath; iw 19:14 Follow up: IV Status: Infusion continued upon admission iw 17:45 Drug: Zofran 4 mg Route: IVP; Site: Port-a-cath; iw 18:20 Follow up: Response: No adverse reaction iw 17:45 Drug: Pepcid 20 mg Route: IVP; Site: Port-a-cath; iw 18:15 Follow up: Response: No adverse reaction iw 17:54 Drug: Thiamine 100 mg Route: IV; Rate: bolus; Site: Port-a-cath; iw 18:30 Follow up: IV Status: Completed infusion iw 18:31 Drug: Lactulose 60 grams Volume: 45 ml; Route: PO; iw 19:15 Follow up: Response: No adverse reaction iw 18:55 Drug: Kayexalate 60 grams Route: PO; iw 19:14 Follow up: Response: No adverse reaction iw Outcome: 16:54 Decision to Hospitalize by Provider. beverly 20:24 Admitted to Med/surg accompanied by nurse, family with patient, via stretcher, room ed1 203, with chart, Report called to GERTRUDE Denny 20:24 Condition: stable 20:24 Discharge instructions given to patient, family, Instructed on the need for admit, Demonstrated understanding of instructions. 20:55 Patient left the ED. ed1 Signatures: [facility] And[facility] RN RN Alo Coleman, RN RN Osman Sotelo MD MD cha Williams, Erin, RN RN iw Dilia, Britney, RN RN ed1 Martita Han, RN RN lp1 Natalie Cook2 Sera Ocasio 3
--- NOTE | 2018-11-02 16:55 | EDPHYS ---
Physician Documentation [facility] Name: Vidal Monson Age: 57 yrs Sex: Male : 1960 Arrival Date: 11/02/2018 Time: 13:54 Bed 6 Private MD: Elmer Flynn ED Physician Osman Brock HPI: 11/02 15:40 This 57 yrs old Male presents to ER via Ambulatory with complaints of high beverly ammonia level. 15:40 The patient presents with abdominal distention in the upper abdomen, in the lower beverly abdomen. Onset: The symptoms/episode began/occurred 3 day(s) ago. The patient presents with confusion, decreased mental status, decreased responsiveness. Onset: The symptoms/episode began/occurred 3 day(s) ago. Possible causes: hepatic encepholopathy. Associated signs and symptoms: The patient has no apparent associated signs or symptoms. Current symptoms: In the emergency department the patient's symptoms are unchanged from the initial presentation. Historical: - Allergies: 14:00 tramadol; sg - PMHx: 14:00 Diabetes - IDDM; GERD; Hepatitis; liver cancer; sg - PSHx: 14:00 port o cath placement; sg - Immunization history:: Adult Immunizations up to date. - Social history:: Smoking status: Patient/guardian denies using tobacco. - Ebola Screening: : Patient negative for fever greater than or equal to 101.5 degrees Fahrenheit, and additional compatible Ebola Virus Disease symptoms Patient denies exposure to infectious person Patient denies travel to an Ebola-affected area in the 21 days before illness onset No symptoms or risks identified at this time. - Family history:: not pertinent. ROS: 15:40 Constitutional: Negative for fever, chills, and weight loss, Eyes: Negative for injury, beverly pain, redness, and discharge, ENT: Negative for injury, pain, and discharge, Neck: Negative for injury, pain, and swelling, Cardiovascular: Negative for chest pain, palpitations, and edema, Respiratory: Negative for shortness of breath, cough, wheezing, and pleuritic chest pain, Back: Negative for injury and pain, : Negative for injury, bleeding, discharge, and swelling, MS/Extremity: Negative for injury and deformity, Skin: Negative for injury, rash, and discoloration, Psych: Negative for depression, anxiety, suicide ideation, homicidal ideation, and hallucinations, Allergy/Immunology: Negative for hives, rash, and allergies, Endocrine: Negative for neck swelling, polydipsia, polyuria, polyphagia, and marked weight changes, Hematologic/Lymphatic: Negative for swollen nodes, abnormal bleeding, and unusual bruising. 15:40 Abdomen/GI: Positive for abdominal distension. 15:40 Neuro: Positive for altered mental status, weakness. Exam: 15:40 Constitutional: This is a well developed, well nourished patient who is awake, alert, beverly and in no acute distress. Head/Face: Normocephalic, atraumatic. Eyes: Pupils equal round and reactive to light, extra-ocular motions intact. Lids and lashes normal. Conjunctiva and sclera are non-icteric and not injected. Cornea within normal limits. Periorbital areas with no swelling, redness, or edema. ENT: Nares patent. No nasal discharge, no septal abnormalities noted. Tympanic membranes are normal and external auditory canals are clear. Oropharynx with no redness, swelling, or masses, exudates, or evidence of obstruction, uvula midline. Mucous membranes moist. Neck: Trachea midline, no thyromegaly or masses palpated, and no cervical lymphadenopathy. Supple, full range of motion without nuchal rigidity, or vertebral point tenderness. No Meningismus. Chest/axilla: Normal chest wall appearance and motion. Nontender with no deformity. No lesions are appreciated. Cardiovascular: Regular rate and rhythm with a normal S1 and S2. No gallops, murmurs, or rubs. Normal PMI, no JVD. No pulse deficits. Respiratory: Lungs have equal breath sounds bilaterally, clear to auscultation and percussion. No rales, rhonchi or wheezes noted. No increased work of breathing, no retractions or nasal flaring. Back: No spinal tenderness. No costovertebral tenderness. Full range of motion. Male : Normal genitalia with no discharge or lesions. Skin: Warm, dry with normal turgor. Normal color with no rashes, no lesions, and no evidence of cellulitis. MS/ Extremity: Pulses equal, no cyanosis. Neurovascular intact. Full, normal range of motion. Psych: Awake, alert, with orientation to person, place and time. Behavior, mood, and affect are within normal limits. 15:40 Abdomen/GI: Inspection: distension, Bowel sounds: normal, Palpation: abdomen is soft and non-tender, Rectal exam: is unremarkable, Liver: no appreciated palpable abnormalities, Hernia: not appreciated. Vital Signs: 14:06 BP 101 / 58; Pulse 88; Resp 17; Pulse Ox 100% on R/A; Weight 111.13 kg; Pain 3/10; sg 17:59 BP 106 / 66; Pulse 80; Resp 14; Pulse Ox 99% on R/A; Pain 0/10; iw 18:18 BP 100 / 55; Pulse 82; Resp 14 S; Temp 98.3(TE); Pulse Ox 99% on R/A; Pain 0/10; iw 19:47 BP 103 / 64; Pulse 82; Resp 16; Temp 98.4(O); Pulse Ox 100% on R/A; Pain 0/10; lp1 MDM: 14:50 Patient medically screened. [facility] 15:45 Data reviewed: vital signs, nurses notes, lab test result(s), EKG, radiologic studies, [facility] CT scan, plain films. 11/02 15:29 Order name: Basic Metabolic Panel; Complete Time: 17:58 [facility] 11/02 15:29 Order name: CBC with Diff; Complete Time: 17:58 [facility] 11/02 15:29 Order name: LFT's; Complete Time: 17:59 [facility] 11/02 15:29 Order name: Magnesium; Complete Time: 17:59 [facility] 11/02 15:29 Order name: NT PRO-BNP; Complete Time: 17:59 [facility] 11/02 15:29 Order name: PT-INR; Complete Time: 18:45 [facility] 11/02 15:29 Order name: Troponin (emerg Dept Use Only); Complete Time: 17:59 [facility] 11/02 15:29 Order name: Lipase; Complete Time: 17:59 [facility] 11/02 15:29 Order name: AMMONIA; Complete Time: 17:58 [facility] 11/02 15:29 Order name: Blood Culture Adult (2) [facility] 11/02 15:29 Order name: Urine Culture [facility] 11/02 17:04 Order name: Basic Metabolic Panel EDMN 11/02 17:05 Order name: Basic Metabolic Panel EDMN 11/02 17:05 Order name: CBC with Automated Diff EDMN 11/02 15:29 Order name: EKG; Complete Time: 15:31 [facility] 11/02 15:29 Order name: Cardiac monitoring; Complete Time: 17:57 [facility] 11/02 15:38 Order name: Abdomen Acute Series XRAY; Complete Time: 16:52 [facility] 11/02 17:01 Order name: CONS Physician Consult EDMN 11/02 17:05 Order name: CBC with Automated Diff EDMN 11/02 17:05 Order name: Lipase EDMN 11/02 17:05 Order name: Lipase EDMN 11/02 17:05 Order name: Liver (Hepatic) Function EDMN 11/02 17:05 Order name: Liver (Hepatic) Function EDMN 11/02 17:59 Order name: Chem 7; Complete Time: 19:02 [facility] 11/02 15:29 Order name: EKG - Nurse/Tech; Complete Time: 17:57 [facility] 11/02 15:29 Order name: IV Saline Lock; Complete Time: 17:57 [facility] 11/02 15:29 Order name: Labs collected and sent; Complete Time: 17:57 [facility] 11/02 15:29 Order name: O2 Per Protocol; Complete Time: 17:57 [facility] 11/02 15:29 Order name: O2 Sat Monitoring; Complete Time: 18:17 [place] Administered Medications: 17:40 Drug: NS 0.9% 1000 ml Route: IV; Rate: 75 ml/hr; Site: Port-a-cath; iw 19:14 Follow up: IV Status: Infusion continued upon admission iw 17:45 Drug: Zofran 4 mg Route: IVP; Site: Port-a-cath; iw 18:20 Follow up: Response: No adverse reaction iw 17:45 Drug: Pepcid 20 mg Route: IVP; Site: Port-a-cath; iw 18:15 Follow up: Response: No adverse reaction iw 17:54 Drug: Thiamine 100 mg Route: IV; Rate: bolus; Site: Port-a-cath; iw 18:30 Follow up: IV Status: Completed infusion iw 18:31 Drug: Lactulose 60 grams Volume: 45 ml; Route: PO; iw 19:15 Follow up: Response: No adverse reaction iw 18:55 Drug: Kayexalate 60 grams Route: PO; iw 19:14 Follow up: Response: No adverse reaction iw Disposition: 11/02/18 16:54 Hospitalization ordered by Elmer Flynn for Inpatient Admission. Preliminary diagnosis are Weakness, Altered mental status, unspecified, Encephalopathy, unspecified, Vomiting, Unspecified cirrhosis of liver, Acute kidney failure, Hyperkalemia. - Bed requested for Telemetry/MedSurg (Inpatient). - Status is Inpatient Admission. ed1 - Condition is Fair. - Problem is chronic. - Symptoms have worsened. UTI on Admission? No Signatures: Dispatcher [employer] EDMS Rossy Flores RN RN Alo Romero RN RN Osman Brock MD MD cha Williams, Irene, RN RN Britney Dobbs RN RN ed1 Corrections: (The following items were deleted from the chart) 18:00 16:54 Hospitalization Ordered by Elmer Flynn MD for Inpatient Admission. Preliminary [facility] diagnosis is Weakness; Altered mental status, unspecified; Encephalopathy, unspecified; Vomiting; Unspecified cirrhosis of liver. Bed requested for Telemetry/MedSurg (Inpatient). Status is Inpatient Admission. Condition is Fair. Problem is chronic. Symptoms have worsened. UTI on Admission? No. beverly 18:57 18:02 Can ordered. beverly 19:54 18:00 11/02/2018 16:54 Hospitalization Ordered by Elmer Flynn MD for Inpatient Admission. Preliminary diagnosis is Weakness; Altered mental status, unspecified; Encephalopathy, unspecified; Vomiting; Unspecified cirrhosis of liver; Acute kidney failure; Hyperkalemia. Bed requested for Telemetry/MedSurg (Inpatient). Status is Inpatient Admission. Condition is Fair. Problem is chronic. Symptoms have worsened. UTI on Admission? No. beverly 20:55 19:54 11/02/2018 16:54 Hospitalization Ordered by Elmer Flynn MD for Inpatient ed1 Admission. Preliminary diagnosis is Weakness; Altered mental status, unspecified; Encephalopathy, unspecified; Vomiting; Unspecified cirrhosis of liver; Acute kidney failure; Hyperkalemia. Bed requested for Telemetry/MedSurg (Inpatient). Status is Inpatient Admission. Condition is Fair. Problem is chronic. Symptoms have worsened. UTI on Admission? No. nena
[2018-11-02] MEDS ORDERED: ACETAMINOPHEN 500 MG TAB PO PRN (16:57)
[2018-11-02] MEDS ORDERED: GLUCAGON 1 MG/VIAL IM PRN (16:58)
[2018-11-02] MEDS ORDERED: D50W 25 GM/50 ML SYRINGE IV PRN (16:58)
[2018-11-02] MEDS: NA CHLORIDE 0.9% 1,000 ML IV SCH (17:00)
--- NOTE | 2018-11-02 17:00 | EKG ---
Test Date: 2018-10-02 Test Time: 15:43:54 Tent Worker: WILDA MEASUREMENT RESULTS: Intervals: Rate: 79 ND: 260 QRSD: 120 QT: 386 QTc: 442 [place]: P: 54 ND: 260 QRS: -63 T: 52 INTERPRETIVE STATEMENTS: Sinus rhythm with 1st degree AV block Left axis deviation Inferior infarct, age undetermined Anterolateral infarct, age undetermined Intraventricular conduction delay Abnormal ECG Compared to ECG 07/02/2018 07:03:03 Atrial premature complex(es) no longer present Myocardial infarct finding still present Electronically Signed On 11-02-18 16:59:25 FIELD ORGANIZER by Gee Rosenthal
[2018-11-02 17:13] LABS: Absolute Lymphocytes (CBC) 0.5 K/uL (0.7-4.9); Absolute Monocytes 0.7 K/uL (0.1-1.3); Absolute Neutrophil 3.2 K/uL (1.8-8.0); Basophils % 0.2 % (0-1.3); Hematocrit 38.3 % (39.6-49.0); Lymphocytes % 10.3 % (15.3-44.8); Monocytes % 16.2 % (3.3-12.3); RBC Red Blood Cell Count 3.63 M/uL (4.33-5.43)
[2018-11-02 17:50] LABS: Albumin 2.6 g/dL (3.4-5.0); Bilirubin Direct 0.6 mg/dL (0-0.2); Magnesium 3.1 mg/dL (1.8-2.4); Protein, Total 7.7 g/dL (6.4-8.2); Troponin (Emerg Dept Use Only) 0.02 ng/mL (0.0-0.045)
[2018-11-02 17:57] LABS: Potassium 6.1 mmol/L (3.5-5.1)
[2018-11-02] MEDS ORDERED: THIAMINE 200 MG/2 ML INJ ONE (17:59)
[2018-11-02] MEDS: LACTULOSE 20 GM/30 ML UCUP PO SCH ×2 (18:00→23:57)
[2018-11-02 18:01] LABS: Protime INR 1.12
[2018-11-02 18:40] LABS: Potassium 5.5 mmol/L (3.5-5.1)
[2018-11-02] MEDS ORDERED: LIDOCAINE VISCOUS 2% SOLN 15 ML UDC ONE (18:58)
[2018-11-02] MEDS ORDERED: SOD POLYSTYREN SUL 15 GM/60 ML UCUP PO ONE (19:00)
[2018-11-02] MEDS ORDERED: INSULIN -REGULAR HUMAN 50 UNIT/0.5 ML ML SQ SCH (21:00)
[2018-11-02] MEDS: ONDANSETRON 4 MG/2 ML VIAL IV PRN (23:57)
[2018-11-03] MEDS: ONDANSETRON 4 MG/2 ML VIAL IV PRN ×4 (05:27→23:22)
[2018-11-03] MEDS: NA CHLORIDE 0.9% 1,000 ML IV SCH ×2 (05:27→18:56)
[2018-11-03] MEDS: LACTULOSE 20 GM/30 ML UCUP PO SCH ×4 (05:27→23:23)
[2018-11-03] MEDS: INSULIN -REGULAR HUMAN 50 UNIT/0.5 ML ML SQ SCH ×5 (05:34→21:00)
[2018-11-03 06:31] LABS: Absolute Lymphocytes (CBC) 0.5 K/uL (0.7-4.9); Absolute Monocytes 0.9 K/uL (0.1-1.3); Basophils % 0.3 % (0-1.3); Eosinophils % 2.6 % (0-4.4); Hematocrit 33.9 % (39.6-49.0); Lymphocytes % 11.3 % (15.3-44.8); MPV 10.7 fL (7.6-11.3); Monocytes % 19.6 % (3.3-12.3); RBC Red Blood Cell Count 3.24 M/uL (4.33-5.43)
[2018-11-03 06:45] LABS: Albumin 2.5 g/dL (3.4-5.0); Bilirubin Direct 0.6 mg/dL (0-0.2); Bilirubin Total 0.9 mg/dL (0.2-1.0); Potassium 4.7 mmol/L (3.5-5.1); Protein, Total 7.3 g/dL (6.4-8.2)
[2018-11-03 13:19] LABS: Urine Appearance CLEAR; Urine Bilirubin NEGATIVE (NEG); Urine Blood NEGATIVE (NEG); Urine Color YELLOW; Urine Glucose NEGATIVE (NEG); Urine Protein NEGATIVE (NEG); Urine Urobilinogen 0.2 mg/dL (0.2-1.0); Urine pH 5.5 (5.0-7.0)
[2018-11-03 13:24] LABS: Urine Microscopic Reflex NO UMIC
--- NOTE | 2018-11-03 23:26 | PN ---
Date of Progress Note: 11/03/2018 The patient woke up tonight, tolerating medication, hungry. I have discussed the case with MD Kenny on and felt that treatment that we are doing here was indicated; and if he did recover from this epis ode, they would see him as scheduled and talk about initiating some new chemotherapy. Overall, his o verall prognosis is obviously poor. HR/MODL Voice ID: [id number] Report ID: [id number]
[2018-11-04] MEDS: ONDANSETRON 4 MG/2 ML VIAL IV PRN ×3 (05:03→17:56)
[2018-11-04] MEDS: LACTULOSE 20 GM/30 ML UCUP PO SCH ×3 (05:03→17:56)
[2018-11-04 05:35] LABS: Albumin 2.6 g/dL (3.4-5.0); Bilirubin Direct 0.7 mg/dL (0-0.2); Bilirubin Total 1.1 mg/dL (0.2-1.0); Potassium 5.1 mmol/L (3.5-5.1); Protein, Total 7.3 g/dL (6.4-8.2)
[2018-11-04] MEDS: NA CHLORIDE 0.9% 1,000 ML IV SCH ×2 (06:40→17:56)
[2018-11-04] MEDS: INSULIN -REGULAR HUMAN 50 UNIT/0.5 ML ML SQ SCH ×4 (07:30→21:00)
[2018-11-05] MEDS: ONDANSETRON 4 MG/2 ML VIAL IV PRN ×4 (01:11→23:43)
[2018-11-05] MEDS: LACTULOSE 20 GM/30 ML UCUP PO SCH ×5 (01:11→23:42)
[2018-11-05 05:09] LABS: Albumin 2.6 g/dL (3.4-5.0); Bilirubin Direct 0.8 mg/dL (0-0.2); Bilirubin Total 1.4 mg/dL (0.2-1.0); Protein, Total 7.4 g/dL (6.4-8.2)
[2018-11-05 06:35] VITALS: BMI 29.8
[2018-11-05] MEDS: INSULIN -REGULAR HUMAN 50 UNIT/0.5 ML ML SQ SCH ×4 (07:30→20:39)
--- NOTE | 2018-11-05 09:34 | RAD REPORT ---
EXAM DESCRIPTION: US - Paracentesis Proc Guidance - 11/05/2018 8:54 am CLINICAL HISTORY: Recurrent ascites COMPARISON: Multiple prior paracentesis procedures TECHNIQUE: The patient presents as an inpatient for ultrasound-guided paracentesis. The procedure, risks and alternatives were discussed with the patient in detail. Oral and written consent were obtai pat. Time out procedure was performed. The patient had no contraindicated allergy or medication his tory. PT, INR values within acceptable limits. Preliminary sonographic evaluation identified right lower quadrant access site. The skin and deeper tissues were anesthetized with 1 percent lidocaine. Under direct sonographic visualization, a parace ntesis catheter was advanced into the peritoneal cavity. Large volume drainage was initiated. Approx imately 10 liters of ascites removed. At the conclusion of the procedure, catheter was withdrawn and a bandage placed at the puncture site. Patient was transferred back to the floor for post paracentesis care and albumin infusion. IMPRESSION: Ultrasound-guided paracentesis as detailed.
[2018-11-05] MEDS: NA CHLORIDE 0.9% 1,000 ML IV SCH ×2 (12:14→23:43)
[2018-11-05 15:38] LABS: Albumin 2.4 g/dL (3.4-5.0); Bilirubin Direct 1.2 mg/dL (0-0.2); Bilirubin Total 1.8 mg/dL (0.2-1.0)
[2018-11-05 22:34] VITALS: O2SAT 99
[2018-11-06] MEDS: ONDANSETRON 4 MG/2 ML VIAL IV PRN ×3 (05:28→17:23)
[2018-11-06] MEDS: LACTULOSE 20 GM/30 ML UCUP PO SCH ×3 (05:29→17:22)
[2018-11-06] MEDS: INSULIN -REGULAR HUMAN 50 UNIT/0.5 ML ML SQ SCH ×3 (07:30→16:30)
[2018-11-06 10:27] LABS: Albumin 2.3 g/dL (3.4-5.0); Bilirubin Direct 0.8 mg/dL (0-0.2); Bilirubin Total 1.3 mg/dL (0.2-1.0); Potassium 4.6 mmol/L (3.5-5.1); Protein, Total 6.8 g/dL (6.4-8.2)
--- NOTE | 2018-11-06 11:02 | PN ---
Date of Progress Note: 11/05/2018 The patient underwent paracentesis once again, they got a large amount of fluid, sometimes they get m ore than most, but this varies between 5 and 6 L, a little bloody on this occasion. He does feel selvin ewhat better, however, his bilirubin continues to be elevated and ammonia fluctuates, which is obviou sly not a good sign. I will observe him overnight and see what the bilirubin does by morning, possib ility of being aggravated by taps will be evaluated. HR/MODL Voice ID: [id number] Report ID: [id number]
[2018-11-06] MEDS: NA CHLORIDE 0.9% 1,000 ML IV SCH (15:30)
[2018-11-06 17:46] VITALS: BP 92/57; TEMP 97.3
[2018-11-06] MEDS ORDERED: HEPARIN 500 UNIT/5 ML SYR IV SCH (19:00)
--- NOTE | 2019-01-19 10:37 | HP ---
Date of Admission: 11/02/2018 Chief Complaint: Altered mental status, generalized weakness. History Of Present Illness: The patient has had multiple admissions for the above outlined diagnosis . He has liver failure, ascites, and metastatic liver cancer. He is doing fairly well over the past few days. The family becoming more confused. His serum ammonia was ordered and this was elevated, therefore brought to the emergency room for further evaluation and treatment. Past History: The patient has had multiple chemotherapy treatment at [facility] in [place] and [facility] paracentesis with 5-7 L being withdrawn over the past few . Social History: Nonsmoker, nondrinker. Family History: Noncontributory. Physical Examination: General: The patient is a middle-aged male, disorientated. Vital Signs: Stable vital signs. Head and Neck: Normocephalic. Pupils equal to light and accommodation. Fundi negative. Trachea mi dline. Thyroid not palpable. ENT negative. Chest: Clear to P and A. Cardiovascular: PMI in midclavicular line. Heart sounds normal. Peripheral pulses present and equa l bilaterally. Abdomen: Marked ascites. Extremities: Dehydrated, good tone and movement bilaterally. Reflexes physiologic. Rectal: Deferred. Impression: Altered mental status, liver failure, metastatic liver cancer. Plan: The patient will be admitted, placed on IV fluids. will be corrected wi ll be started on to lower his ammonia level. Discharge Summary: The patient was admitted to the hospital for treatment of liver failure associate d with metabolic encephalopathy, electrolyte imbalance, and dehydration. He had undergone his parace ntesis with the usual 5 to 6 L removed. His ammonia level, which was elevated, remained somewhat obi vated during his hospital stay. Discussion was made with the family as far as disposition ranging fr om the return to [facility] to hospice. The bilirubin remained elevated during his hospital stay __ possibly secondary to recurrent paracentesis as well. However, he then awoke suddenly from his coma and became orientated, his appetite returned, and he was felt well enough to be discharged. Continue as usual medication his prognosis is poor. Final Diagnoses: 1.Altered mental status. 2.Metabolic encephalopathy. 3.Liver failure with ascites. 4.Metastatic liver cancer. /CAMI Voice ID: [id number]
== END 2018-11-06 18:41 | disposition home or self-care (01) | DRG 441 ==
LOC: ER 13:50 → 2ND 16:54
PROVIDERS: ADMIT Family Medicine; ATTEND Family Medicine
PROC: 0W9G3ZZ Drainage of Peritoneal Cavity, Percutaneous Approach (ICD-10-PCS; principal; 2018-11-05)
DX: K72.90 Hepatic failure, unspecified without coma (principal); G93.41 Metabolic encephalopathy; R18.8 Other ascites; C22.8 Malignant neoplasm of liver, primary, unspecified as to type; N17.9 Acute kidney failure, unspecified; E87.5 Hyperkalemia; E86.0 Dehydration; K21.9 Gastro-esophageal reflux disease without esophagitis; E11.9 Type 2 diabetes mellitus without complications; Z79.4 Long term (current) use of insulin
CPT/HCPCS: 36415; 49083; 74022; 80048; 80076; 81003; 82140; 82962; 83690; 83735; 83880; 84484; 85025; 85610; 87040; 87086; 87088; 93005; 96361; 96365; 96375; 99285; J1642; J2405; J3411; J7030

== ENCOUNTER 2018-11-16 12:37 | Inpatient (IN) | payer BC ==
--- OUTSIDE RECORDS SUMMARY | 2018-11-16 12:39 | XMS REPORT | Clinical Summary ---
:1960 Author Organization [facility] Address [address] [place] [address] Care Team Providers Name Role Phone Asked, [...] INFLUENZA VACCINE 04/29/2018 Results Not on fileafter 11/15/2017 Insurance Payer Benefit Plan / Group Subscriber ID Type Phone Address BCBS BCBS OUT OF STATE xxxxxxxxxxxxxxx PPO Advance Directives Patient has advance care planning documents on file. For more information, please contact:Lam [id number] [place] [address]
[2018-11-16] MEDS ORDERED: NA CHLORIDE 0.9% 1,000 ML ONE (13:38)
[2018-11-16 13:42] LABS: Absolute Lymphocytes (CBC) 0.3 K/uL (0.7-4.9); Absolute Monocytes 0.8 K/uL (0.1-1.3); Absolute Neutrophil 5.1 K/uL (1.8-8.0); Basophils % 0.2 % (0-1.3); Eosinophils % 0.6 % (0-4.4); Hematocrit 36.9 % (39.6-49.0); Lymphocytes % 4.3 % (15.3-44.8); MPV 11.2 fL (7.6-11.3); Monocytes % 13.4 % (3.3-12.3); RBC Red Blood Cell Count 3.53 M/uL (4.33-5.43)
--- NOTE | 2018-11-16 13:45 | RAD REPORT ---
EXAM DESCRIPTION: CT - Head Brain Wo Cont - 11/16/2018 1:26 pm CLINICAL HISTORY: Confusion COMPARISON: None. TECHNIQUE: Computed axial tomography of the head was obtained. IV contrast was not requested. All CT scans are performed using dose optimization technique as appropriate and may include automated exposure control or mA/KV adjustment according to patient size. FINDINGS: An intracranial bleed is not seen . The ventricles are normal in caliber. No extra-axial fluid collection is noted. Fluid within the sinuses/ mastoids is not seen. IMPRESSION: No acute intracranial abnormality is seen. If patient's symptoms persist MRI of the bra in would be recommended.
[2018-11-16 13:49] LABS: Protime INR 1.1
[2018-11-16 14:05] LABS: Bilirubin Direct 0.9 mg/dL (0-0.2); Bilirubin Total 1.6 mg/dL (0.2-1.0); Magnesium 3.4 mg/dL (1.8-2.4); Potassium 5.4 mmol/L (3.5-5.1); Protein, Total 8.1 g/dL (6.4-8.2); Troponin (Emerg Dept Use Only) 0.03 ng/mL (0.0-0.045)
--- NOTE | 2018-11-16 14:21 | RAD REPORT ---
EXAM DESCRIPTION: Eileen Single View11/16/2018 2:14 pm CLINICAL HISTORY: Chest pain COMPARISON: October FINDINGS: The lungs appear clear of acute infiltrate. The heart is normal size A central venous catheter remains in place IMPRESSION: No acute abnormalities displayed
[2018-11-16 14:22] LABS: Platelet Estimate DECR
[2018-11-16 14:23] LABS: Blood Morphology Comment NOTED (NOT SEEN); Macrocytosis 1+
[2018-11-16] MEDS ORDERED: LACTULOSE 20 GM/30 ML UCUP ONE ×2 (14:43→15:22)
[2018-11-16 14:52] LABS: Arterial Blood Carboxyhemoglob 1.4 % (0-1.5); Blood Gas Oxyhemoglobin 95.8 % (94-97)
[2018-11-16] MEDS ORDERED: ONDANSETRON 4 MG/2 ML VIAL ONE (15:15)
[2018-11-16] MEDS ORDERED: METRONIDAZOLE 500mg IVPB 500 MG/100 ML BAG IV ONE (15:29)
[2018-11-16] MEDS ORDERED: CEFEPIME/SWI 1gm 10 ML IVP ONE (15:30)
--- NOTE | 2018-11-16 15:34 | ER ---
Nurse's Notes [facility] Name: Vidal Monson Age: 58 yrs Sex: Male : 1960 Arrival Date: 11/16/2018 Time: 12:40 Bed 7 Private MD: Diagnosis: Hepatorenal syndrome;Sepsis, unspecified organism Presentation: 11/16 12:33 Presenting complaint: EMS states: was unable to get pt to wake up this morning and sv then he woke up, spouse gave his Lactulose to him. On EMS arrival pt was more coherent and in route he was A\T\Ox3. BP 106/76 HR-92 98% RA BS-153. Transition of care: patient was not received from another setting of care. Onset of symptoms was November 16, 2018. Risk Assessment: Do you want to hurt yourself or someone else? Unable to obtain. Initial Sepsis Screen: Does the patient meet any 2 criteria? Altered Mental Status. HR > 90 bpm. Yes Does the patient have a suspected source of infection? No. Patient's initial sepsis screen is negative. Care prior to arrival: None. 12:33 Method Of Arrival: EMS: [facility] sv 12:33 Acuity: JO 2 sv 13:15 Note Spouse states that when she gave him his Lactulose that he vomited after and then sv tried to give him Miralax and he vomited that. Reports pt had 1 BM yesterday and they try to make sure he has 2-3 BMs/daily. Triage Assessment: 12:35 General: Appears in no apparent distress. comfortable, unkempt, Behavior is sv cooperative, appropriate for age, drowsy. Pain: Denies pain. EENT: No signs and/or symptoms were reported regarding the EENT system. Neuro: Level of Consciousness is obeys commands, lethargic, Oriented to person, place, Respiratory: Airway is patent Respiratory effort is even, unlabored, Respiratory pattern is regular, symmetrical. Derm: Skin is normal. Historical: - Allergies: 13:17 tramadol; sv - Home Meds: 13:17 Lactulose Oral 60 mL twice a day [Active]; Lyrica 300 mg Oral as needed [Active]; sv hydromorphone 2 mg Oral tab 1 tab every 6 hours [Active]; - PMHx: 13:17 Diabetes - IDDM; GERD; Hepatitis; liver cancer; sv - PSHx: 13:17 port o cath placement; sv - Immunization history:: Adult Immunizations up to date. - Social history:: Smoking status: Patient/guardian denies using tobacco. - Ebola Screening: : No symptoms or risks identified at this time. Screenin:18 Abuse screen: Denies threats or abuse. Denies injuries from another. Nutritional sv screening: No deficits noted. Tuberculosis screening: No symptoms or risk factors identified. Fall Risk No fall in past 12 months (0 pts). Secondary diagnosis (15 points) AMS. IV access (20 points). Ambulatory Aid- None/Bed Rest/Nurse Assist (0 pts). Gait- Normal/Bed Rest/Wheelchair (0 pts) Mental Status- Overestimates/Forgets Limitations (15 pts.). Total Escobar Fall Scale indicates High Risk Score (45 or more points). Fall prevention measures have been instituted. Side Rails Up X 2 Placed Close to Nursing Station Frequent Obs/Assessments Occuring Family Present and informed to notify staff if the need to leave the bedside As available patient and family educated on Fall Prevention Program and Strategies. Assessment: 13:35 Reassessment: Patient appears in no apparent distress at this time. No changes from sv previously documented assessment. Patient and/or family updated on plan of care and expected duration. Pain level reassessed. 15:08 Reassessment: Lactulose 60 mg given PO, ok by Dr Cnode. Pt tolerated drinking without sv difficulty. After about 5 minutes pt started dry heaving, Zofran 4 mg IVP given. 15:35 Reassessment: Dr Mancini at bedside speaking with the family. Reassessment: Patient sv appears in no apparent distress at this time. Patient and/or family updated on plan of care and expected duration. Pain level reassessed. Neuro: Level of Consciousness is confused, lethargic, Oriented to person. 15:58 Reassessment: Pt given 70 mg ID through the rectal tube and clamped per MD orders. sv 16:36 Reassessment: Patient appears in no apparent distress at this time. Fecal management sv system unclamped and loose stool coming out of tube into collection bag. More Lactulose placed in the tube and clamped. 17:25 Reassessment: Patient appears in no apparent distress at this time. Patient and/or sv family updated on plan of care and expected duration. Pain level reassessed. Neuro: Level of Consciousness is awake, alert, confused, Oriented to person, Pt using more words to answer questions than yes and no. Respiratory: Airway is patent Respiratory effort is even, unlabored, Respiratory pattern is regular, symmetrical. Vital Signs: 12:35 BP 107 / 58; Pulse 91; Resp 18; Temp 97.8; Pulse Ox 100% ; Weight 90.72 kg; Height 6 sv ft. 1 in. (185.42 cm); Pain 0/10; 13:49 BP 91 / 64; Pulse 87; Resp 13; Pulse Ox 100% on R/A; sv 15:00 BP 122 / 87; Pulse 94; Resp 22; Pulse Ox 100% ; sv 16:01 BP 104 / 59; Pulse 91; Resp 14; Pulse Ox 100% ; sv 16:50 BP 101 / 70; Pulse 90; Resp 18; Pulse Ox 98% on R/A; sv 17:26 BP 113 / 73; Pulse 90; Resp 14; Pulse Ox 99% ; sv 12:35 Body Mass Index 26.39 (90.72 kg, 185.42 cm) sv ED Course: 12:35 Patient has correct armband on for positive identification. Placed in gown. Bed in low sv position. Call light in reach. Side rails up X2. wedger machine on. Pulse ox on. NIBP on. Door closed. Warm blanket given. Pillow given. Head of bed elevated. 12:40 Patient arrived in ED. sv 12:40 Fabiola Huynh, RN is Primary Nurse. sv 12:40 Arm band placed on. sv 12:43 Jonas Conde MD is Attending Physician. gs 12:45 ED physician to see patient. sv 12:50 Initial lab(s) drawn, by me, sent to lab. First set of blood cultures drawn by me. sv Accessed Port-a-Cath. using accessed w/ #19 Smith needle, ,sterile technique, per hospital protocol. Clean \T\ dry. Dressing intact. Good blood return. Flushes easily. 13:05 Second set of blood cultures drawn by me. sv 13:15 Triage completed. sv 13:26 CT completed. Patient tolerated procedure well. Patient moved to CT via stretcher. [email or web address] Patient moved back from CT. 13:26 CT Head Brain wo Cont In Process Unspecified. EDMS 13:32 EKG done, by medical delivery technician. reviewed by Jonas Conde MD. at1 13:43 Lab(s) recollected, by me, sent to lab. sv 13:50 Awaiting lab results, Awaiting radiology results. sv 14:14 X-ray completed. Portable x-ray completed in exam room. Patient tolerated procedure sw well. 14:22 XRAY Chest (1 view) In Process Unspecified. EDMS 15:27 Tanner Mancini DO is Hospitalizing Provider. gs 15:40 Can cath inserted, using sterile technique, 16 Fr., by me, balloon inflated, to sv gravity drainage, returned tiffany urine. 15:45 Fecal management system placed by myself in order to give the Lactulose per MD order. sv 15:53 Radiology exam delayed due to PT UNABLE TO COME TO CT AT THIS TIME; NURSE TO CALL WHEN sj PT IS READY. 16:16 Urine Dipstick--Ancillary (enter results) Sent. sv 16:44 Radiology exam delayed due to PT IS STILL UNABLE TO COME TO CT FOR EXAM AT THIS TIME; sj NURSE TO CALL WHEN READY. 17:24 No provider procedures requiring assistance completed. Patient admitted, IV remains in sv place. intact. 17:33 Radiology exam delayed due to PT BEING TAKEN TO ICU; PER NURSE PT WILL NOT BE ABLE TO sj TOLERATE CT SCAN. 19:07 Primary Nurse role handed off by Fabiola Huynh RN Administered Medications: 13:35 Drug: NS 0.9% 1000 ml Route: IV; Rate: 125 ml/hr; Site: Port-a-cath; sv 17:25 Follow up: Response: No adverse reaction; IV Status: Infusion continued upon admission sv 15:05 Drug: Zofran 4 mg Route: IVP; Site: Port-a-cath; sv 15:30 Follow up: Response: No adverse reaction sv 15:07 Drug: NS 0.9% 1000 ml Route: IV; Rate: 1 bolus; Site: Port-a-cath; sv 16:38 Follow up: Response: No adverse reaction; IV Status: Completed infusion; IV Intake: sv 1000ml 15:38 Drug: Cefepime 1 grams Route: IVPB; Rate: 200 ml/hr; Infused Over: 30 mins; Site: Port-a-cath; 15:40 Follow up: Response: No adverse reaction; IV Status: Completed infusion; IV Intake: 10mlsv 15:40 Drug: Flagyl 500 mg Volume: 100 ml; Route: IVPB; Rate: 200 ml/hr; Infused Over: 30 sv mins; Site: Port-a-cath; 16:38 Follow up: Response: No adverse reaction; IV Status: Completed infusion; IV Intake: sv 100ml 16:15 Drug: NS 0.9% (20 ml/kg) 20 ml/kg Route: IV; Rate: 1 bolus; Site: Port-a-cath; sv 17:25 Follow up: Response: No adverse reaction; IV Status: Infusion continued upon admission sv 17:20 Drug: Lactulose 200 grams Route: ID; sv 17:21 Follow up: Response: No adverse reaction sv 17:29 Not Given (given to ICU nurse Audra, ok by Dr Conde for ICU to give medication sv upstairs when he is more coherent): Xifaxan 550 mg PO once Intake: 15:40 IV: 10ml; Total: 10ml. sv 16:38 IV: 1000ml; Total: 1010ml. sv 16:38 IV: 100ml; Total: 1110ml. sv Outcome: 15:34 Decision to Hospitalize by Provider. 17:22 Admitted to ICU accompanied by nurse, accompanied by tech, family with patient, via sv stretcher, room 2, on monitor, with chart, Report called to Audra LOREDO 17:22 Condition: stable 17:22 Instructed on the need for admit. 17:36 Patient left the ED. Signatures: Dispatcher [employer] Fabiola Escalante RN RN Jody Callaway Shelby, RN RN Thania Persaud, sharepoint engineer EKG [id number] Lillian Clarke Gregory, MD MD gs Garcia, Cher [email or web address] Corrections: (The following items were deleted from the chart) 13:15 12:33 Note Spouse states that when she gave him his Lactulose that he vomited after and sv then tried to give him Miralax and he vomited that. Reports pt had 1 BM yesterday and they try to make sure he has 2-3 BMs/daily. sv 15:53 15:[address] via stretcher. sj
--- NOTE | 2018-11-16 15:34 | EDPHYS ---
Physician Documentation [facility] Name: Vidal Monson Age: 58 yrs Sex: Male : 1960 Arrival Date: 11/16/2018 Time: 12:40 Bed 7 Private MD: ED Physician Jonas Conde HPI: 11/16 21:07 This 58 yrs old Male presents to ER via EMS with complaints of Altered Mental gs Status. 21:07 The patient presents with confusion. Onset: The symptoms/episode began/occurred 3 gs day(s) ago, and became worse and became persistent. Possible causes: liver ca. Associated signs and symptoms: Pertinent negatives: fever. The patient has experienced similar episodes in the past, a few times. Historical: - Allergies: 13:17 tramadol; sv - Home Meds: 13:17 Lactulose Oral 60 mL twice a day [Active]; Lyrica 300 mg Oral as needed [Active]; sv hydromorphone 2 mg Oral tab 1 tab every 6 hours [Active]; - PMHx: 13:17 Diabetes - IDDM; GERD; Hepatitis; liver cancer; sv - PSHx: 13:17 port o cath placement; sv - Immunization history:: Adult Immunizations up to date. - Social history:: Smoking status: Patient/guardian denies using tobacco. - Ebola Screening: : No symptoms or risks identified at this time. ROS: 21:07 Unable to obtain ROS due to patient's speech is incomprehensible, patient's inability gs to understand questions. Exam: 21:07 Head/Face: Normocephalic, atraumatic. Eyes: Pupils equal round and reactive to light, gs extra-ocular motions intact. Lids and lashes normal. Conjunctiva and sclera are non-icteric and not injected. Cornea within normal limits. Periorbital areas with no swelling, redness, or edema. ENT: Nares patent. No nasal discharge, no septal abnormalities noted. Tympanic membranes are normal and external auditory canals are clear. Oropharynx with no redness, swelling, or masses, exudates, or evidence of obstruction, uvula midline. Mucous membranes moist. Neck: Trachea midline, no thyromegaly or masses palpated, and no cervical lymphadenopathy. Supple, full range of motion without nuchal rigidity, or vertebral point tenderness. No Meningismus. Chest/axilla: Normal chest wall appearance and motion. Nontender with no deformity. No lesions are appreciated. Cardiovascular: Regular rate and rhythm with a normal S1 and S2. No gallops, murmurs, or rubs. Normal PMI, no JVD. No pulse deficits. Respiratory: Lungs have equal breath sounds bilaterally, clear to auscultation and percussion. No rales, rhonchi or wheezes noted. No increased work of breathing, no retractions or nasal flaring. Abdomen/GI: Soft, non-tender, with normal bowel sounds. No distension or tympany. No guarding or rebound. No evidence of tenderness throughout. Back: No spinal tenderness. No costovertebral tenderness. Full range of motion. Skin: Warm, dry with normal turgor. Normal color with no rashes, no lesions, and no evidence of cellulitis. MS/ Extremity: Pulses equal, no cyanosis. Neurovascular intact. Full, normal range of motion. 21:07 Constitutional: The patient appears lethargic. 21:07 Eyes: Sclera: icterus, is not appreciated. 21:07 Neuro: Cranial nerves: CN II- XII are normal as tested, Motor: moves all fours, Sensation: no obvious gross deficits. Vital Signs: 12:35 BP 107 / 58; Pulse 91; Resp 18; Temp 97.8; Pulse Ox 100% ; Weight 90.72 kg; Height 6 sv ft. 1 in. (185.42 cm); Pain 0/10; 13:49 BP 91 / 64; Pulse 87; Resp 13; Pulse Ox 100% on R/A; sv 15:00 BP 122 / 87; Pulse 94; Resp 22; Pulse Ox 100% ; sv 16:01 BP 104 / 59; Pulse 91; Resp 14; Pulse Ox 100% ; sv 16:50 BP 101 / 70; Pulse 90; Resp 18; Pulse Ox 98% on R/A; sv 17:26 BP 113 / 73; Pulse 90; Resp 14; Pulse Ox 99% ; sv 12:35 Body Mass Index 26.39 (90.72 kg, 185.42 cm) sv MDM: 12:48 Patient medically screened. gs 21:07 Differential Diagnosis: CVA, hypoglycemia, intracranial bleed, sepsis, HEPATIC gs ENCEPHALOPATHY. Data reviewed: vital signs, nurses notes. Data reviewed: lab test result(s), EKG, radiologic studies. Counseling: I had a detailed discussion with the patient and/or guardian regarding: the historical points, exam findings, and any diagnostic results supporting the discharge/admit diagnosis, lab results, radiology results. Response to treatment: the patient's symptoms have mildly improved after treatment, and as a result, I will admit patient. 11/16 12:41 Order name: Basic Metabolic Panel; Complete Time: 14:23 sv 11/16 12:41 Order name: CBC with Diff; Complete Time: 14:25 sv 11/16 12:41 Order name: LFT's; Complete Time: 14:23 sv 11/16 12:41 Order name: Magnesium; Complete Time: 14:23 sv 11/16 12:41 Order name: NT PRO-BNP; Complete Time: 14:23 sv 11/16 12:41 Order name: PT-INR; Complete Time: 14:23 sv 11/16 12:41 Order name: Troponin (emerg Dept Use Only); Complete Time: 14:23 sv 11/16 12:41 Order name: AMMONIA; Complete Time: 14:23 sv 11/16 12:51 Order name: Blood Culture* 11/16 12:51 Order name: Lactate; Complete Time: 14:23 11/16 12:51 Order name: Procalcitonin; Complete Time: 14:23 11/16 12:51 Order name: Urine Microscopic Only 11/16 14:01 Order name: CBC Smear Scan; Complete Time: 14:25 EDMS 11/16 14:34 Order name: ABG; Complete Time: 15:03 11/16 12:41 Order name: XRAY Chest (1 view); Complete Time: 14:31 sv 11/16 12:41 Order name: EKG; Complete Time: 12:42 sv 11/16 12:41 Order name: Cardiac monitoring; Complete Time: 13:07 sv 11/16 12:41 Order name: EKG - Nurse/Tech; Complete Time: 13:07 sv 11/16 12:41 Order name: IV Saline Lock; Complete Time: 13:07 sv 11/16 12:51 Order name: CT Head Brain wo Cont; Complete Time: 14:23 11/16 15:48 Order name: CT Chest Abdomen Pelvis W/O Contrast 11/16 16:15 Order name: Urine Dipstick--Ancillary (enter results) 11/16 12:41 Order name: Labs collected and sent; Complete Time: 13:07 sv 11/16 12:41 Order name: O2 Per Protocol; Complete Time: 13:07 sv 11/16 12:41 Order name: O2 Sat Monitoring; Complete Time: 13:07 sv 11/16 12:51 Order name: Urine Dipstick-Ancillary (obtain specimen); Complete Time: 19:07 gs 11/16 13:36 Order name: Labs - recollect needed; Complete Time: 13:47 bd Administered Medications: 13:35 Drug: NS 0.9% 1000 ml Route: IV; Rate: 125 ml/hr; Site: Port-a-cath; sv 17:25 Follow up: Response: No adverse reaction; IV Status: Infusion continued upon admission sv 15:05 Drug: Zofran 4 mg Route: IVP; Site: Port-a-cath; sv 15:30 Follow up: Response: No adverse reaction sv 15:07 Drug: NS 0.9% 1000 ml Route: IV; Rate: 1 bolus; Site: Port-a-cath; sv 16:38 Follow up: Response: No adverse reaction; IV Status: Completed infusion; IV Intake: sv 1000ml 15:38 Drug: Cefepime 1 grams Route: IVPB; Rate: 200 ml/hr; Infused Over: 30 mins; Site: Port-a-cath; 15:40 Follow up: Response: No adverse reaction; IV Status: Completed infusion; IV Intake: 10mlsv 15:40 Drug: Flagyl 500 mg Volume: 100 ml; Route: IVPB; Rate: 200 ml/hr; Infused Over: 30 sv mins; Site: Port-a-cath; 16:38 Follow up: Response: No adverse reaction; IV Status: Completed infusion; IV Intake: sv 100ml 16:15 Drug: NS 0.9% (20 ml/kg) 20 ml/kg Route: IV; Rate: 1 bolus; Site: Port-a-cath; sv 17:25 Follow up: Response: No adverse reaction; IV Status: Infusion continued upon admission sv 17:20 Drug: Lactulose 200 grams Route: [place]; sv 17:21 Follow up: Response: No adverse reaction sv 17:29 Not Given (given to ICU nurse olga Zhu by Dr Conde for ICU to give medication sv upstairs when he is more coherent): Xifaxan 550 mg PO once Disposition: 21:07 Critical Care:. gs Disposition: 11/16/18 15:34 Hospitalization ordered by Tanner Mancini for Inpatient Admission. Preliminary diagnosis are Hepatorenal syndrome, Sepsis, unspecified organism. - Bed requested for Intensive Care Unit. - Status is Inpatient Admission. ss - Condition is Stable. - Problem is an acute exacerbation. - Symptoms are unchanged. UTI on Admission? No Critical care time excluding procedures: 21:07 Critical care time: Bedside Care: 10 minutes, Consultation: 10 minutes, Family gs Intervention: 10 minutes. Total time: 30 minutes Signatures: Dispatcher [employer] EDMS Eva Monsalve Stephanie, RN Yennifer Ortiz RN RN dw Smirch, Shelby, RN RN ss Starr, Gregory, MD MD Corrections: (The following items were deleted from the chart) 15:36 15:34 Hospitalization Ordered by Tanner Mancini DO for Inpatient Admission. Preliminary diagnosis is Hepatorenal syndrome; Sepsis, unspecified organism. Bed requested for Telemetry/MedSurg (Inpatient). Status is Inpatient Admission. Condition is Stable. Problem is an acute exacerbation. Symptoms are unchanged. UTI on Admission? No. 16:50 15:36 11/16/2018 15:34 Hospitalization Ordered by Tanner Mancini DO for Inpatient dw Admission. Preliminary diagnosis is Hepatorenal syndrome; Sepsis, unspecified organism. Bed requested for Intensive Care Unit. Status is Inpatient Admission. Condition is Stable. Problem is an acute exacerbation. Symptoms are unchanged. UTI on Admission? No. gs 17:36 16:50 11/16/2018 15:34 Hospitalization Ordered by Tanner Mancini DO for Inpatient ss Admission. Preliminary diagnosis is Hepatorenal syndrome; Sepsis, unspecified organism. Bed requested for Intensive Care Unit. Status is Inpatient Admission. Condition is Stable. Problem is an acute exacerbation. Symptoms are unchanged. UTI on Admission? No.
[2018-11-16] MEDS ORDERED: Rifaximin 550 MG Tab PO ONE (16:00)
--- NOTE | 2018-11-16 16:07 | P.HP ---
Certification for Inpatient Patient admitted to: Inpatient With expected LOS: >2 Midnights Patient will require the following post-hospital care: None Practitioner: I am a practitioner with admitting privileges, knowledge of patient current condition, hospital course, and medical plan of care. Services: Services provided to patient in accordance with Admission requirements found in Title 42 Section 412.3 of the Code of Federal Regulations Patient History Date of Service: 11/16/18 Primary Care Provider: Dr. Flynn; Oncology-Dr. Arias([facility]) Reason for admission: Altered mental status History of Present Illness: 58-year-old male presented to emergency room with increasing altered mental status. Patient presents with altered mental status. This is been getting worse over the last several days. Patient has had poor oral intake. He has not been able to take his lactulose. 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 Patient seen at [facility]. Most of the information came from the family and ER physician. In the ER patient evaluated. Blood pressure was low. Patient was given IV fluid bolus. White count 6, hemoglobin 12.5, platelet count of is 97. Sodium 130, potassium 5.4, chloride 102, bicarb 15, BUN of 123 with a GFR 14 varicose C6. Ammonia level 211. Total bilirubin 1.6, lactic acid elevated. Pro calcitonin elevated at 10.29. Troponin 0.03. Blood gases showed a pH is 7.38 with P CO2 24, PO2 108. Bicarb 14. CT head negative. Chest x-ray negative. Blood cultures obtained. Urine culture to be obtained as well. Patient was given IV fluid bolus and lactulose in the emergency room. Patient admitted for treatment. When I saw the patient in the ER, patient was oriented to person. He was confused. ER physician spoke to his oncologist at [facility]. His cancer is getting worse. Patient has been getting paracentesis every week. Oncologist's had recommended hospice. Patient is DNR as per family. Allergies tramadol Allergy (Intermediate, Verified 11/02/18 22:38) Unknown Home medications list reviewed: Yes Home Medications: Hydromorphone [Dilaudid] 2 mg PO Q6HP PRN 06/21/18 Insulin Glargine,Hum.rec.anlog [Basaglar Kwikpen U-100] 75 units SQ DAILY Lactulose [Cephulac] 20 gm PO QID 06/21/18 Pregabalin [Lyrica] 300 mg PO TID 06/21/18 Celecoxib [Celebrex*] 100 mg PO BID 10/27/18 Mv-Mn/Folic Acid/Lutein/Jtg524 [Mens Multivit High Potency Tab] 1 tab PO DAILY 10/27/18 - Past Medical/Surgical History Diabetic: Yes -: Diabetes mellitus type 2 -: GERD -: Esophageal varices -: Hepatitis-C -: Liver cirrhosis likely alcoholic related -: Hepatic cellular carcinoma, 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 - Family History Family History: Reviewed- Non-Contributory - Family History Mother -: Diabetes Father Notes: mva in 30s Brother Notes: brain cancer and lung cancer r/t substance abuse - Social History Smoking Status: Never smoker Alcohol use: No CD- Drugs: No Caffeine use: No Place of Residence: Home Review of Systems General: Weakness, Malaise, As per HPI Eyes: Unremarkable ENT: Unremarkable Respiratory: Unremarkable Cardiovascular: Unremarkable Gastrointestinal: Nausea, Other (Ascites noted), As per HPI (Family reports no melena, hematemesis.) Genitourinary: As per HPI (Poor output noted) Musculoskeletal: Unremarkable Integumentary: Unremarkable Neurological: As per HPI Lymphatics: Unremarkable Physical Examination - Physical Exam General: Alert, In no apparent distress, Oriented x1, Confused HEENT: Atraumatic, Normocephalic, Other (Dry mucous membranes) Neck: Supple, No Thyromegaly Respiratory: Clear to auscultation bilaterally, Normal air movement Cardiovascular: Normal pulses, Regular rate/rhythm Gastrointestinal: Normal bowel sounds, Soft and benign, Non-distended, No tenderness, No masses, No rebound, No guarding, Ascites (Moderate ascites noted) Musculoskeletal: No erythema, No tenderness, No warmth Integumentary: No tenderness/swelling, No erythema, No warmth, No cyanosis Neurological: Normal speech, Normal strength at 5/5 x4 extr, Normal tone, Other (Patient confused) - Studies Laboratory Data (last 24 hrs) 11/16/18 12:50: PT 12.9 H, INR 1.10 11/16/18 12:50: WBC 6.2 D, Hgb 12.5 L, Hct 36.9 L, Plt Count 97 L D 11/16/18 12:50: Sodium 130 L, Potassium 5.4 H, BUN 121 H D, Creatinine 4.36 H D , Glucose 166 H, Magnesium 3.4 H, Total Bilirubin 1.6 H, AST 330 H*, ALT 131 H, Alkaline Phosphatase 391 H Assessment and Plan - Plan Impression: Altered mental status secondary to toxic and hepatic encephalopathy complicated with possible underlying sepsis etiology unknown 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 Code status has been address with family. Patient wishes to be DNR. ER physician spoke to his oncologist at [facility]. Patient's cancer is getting worse. Oncologist recommends hospice. At this time will obtain blood cultures , urine culture. Will check CT scan of chest, abdomen and pelvis to further assess his cancer. Patient will likely require radiology assisted paracentesis tomorrow for further evaluation. Will continue with IV fluid boluses. Continue with aggressive IV fluids. Continue with lactulose by mouth or per rectum. Will start Xifaxan. Will start vancomycin and cefepime for antibiotic coverage. Nephrology and GI consulted for further recommendation. Will have tufting machine operator follow up on patient tonight. 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 His condition is getting worse. Oncologist recommends hospice. Case discussed at length with family. If his condition does not improve will need to consider hospice. Will monitor daily. Will continue to reassess. Acute renal failure: Likely from dehydration. Will start aggressive IV fluids. Nephrology consulted to further assess. Diabetes mellitus type 2: Will monitor closely. Will provide sliding scale. Thrombocytopenia: Likely related to liver cirrhosis and hepatocellular carcinoma. Will hold off on DVT prophylaxis with Lovenox. Hepatitis-C: Will monitor liver function test. Ascites with history of recurrent paracentesis: Will order radiology assisted paracentesis to further evaluate for possible SBP. Patient will require IV albumin after paracentesis. GERD with history of esophageal varices with banding: Will provide Pepcid. Will monitor closely. Hyperkalemia: Will recheck. This will likely improve with hydration and lactulose. Nausea and vomiting with dehydration: Continue with IV fluids. Will provide medication for nausea. Discharge Plan: Home Plan to discharge in: Greater than 2 days - Advance Directives Does patient have a Living Will: Yes Does patient have a Durable POA for Healthcare: Yes - Code Status/Comfort Care Code Status Assessed: Yes (Patient is DNR) Time Spent Managing Pts Care (In Minutes): 55
[2018-11-16] MEDS ORDERED: NA CHLORIDE 0.9% 3,000 ML ONE (16:16)
[2018-11-16 17:00] LABS: Urine Bacteria <20 /HPF (NONE SEEN); Urine Culture Reflex Order NOT NEEDED; Urine Mucus 1+ /HPF (NONE SEEN); Urine RBC <5 /HPF (NONE SEEN)
--- NOTE | 2018-11-16 17:23 | EKG ---
Test Date: 2018-11-16 Test Time: 13:02:12 Rd Mechanical Engineer: [employer] MEASUREMENT RESULTS: Intervals: Rate: 91 [place]: 226 QRSD: 130 QT: 384 QTc: 472 [place]: P: 48 AZ: 226 QRS: -52 T: 84 INTERPRETIVE STATEMENTS: Sinus rhythm with 1st degree AV block Left axis deviation Nonspecific intraventricular block Cannot rule out Septal infarct, age undetermined Abnormal ECG Compared to ECG 10/26/2018 21:08:43 First degree AV block now present Sinus tachycardia no longer present Myocardial infarct finding still present Electronically Signed On 11-16-18 17:23:29 SHOP SUPERINTENDENT by Gee Rosenthal
[2018-11-16] MEDS ORDERED: GLUCAGON 1 MG/VIAL IM PRN (17:56)
[2018-11-16] MEDS ORDERED: D50W 25 GM/50 ML SYRINGE IV PRN (17:56)
[2018-11-16] MEDS ORDERED: NA CHLORIDE 0.9% 1,000 ML IV SCH (17:56)
[2018-11-16] MEDS ORDERED: SODIUM CHLORIDE 0.9% 10ML INJ IV PRN (17:56)
[2018-11-16] MEDS: INSULIN -REGULAR HUMAN 50 UNIT/0.5 ML ML SQ SCH (18:00)
[2018-11-16] MEDS ORDERED: NOREPINEPHRINE 4 MG in D5W 250 ML IV PRN (18:20)
[2018-11-16] MEDS ORDERED: LACTULOSE 20 GM/30 ML UCUP PO SCH (19:00)
[2018-11-16 19:19] VITALS: BMI 29.6
[2018-11-16] MEDS: LACTULOSE 20 GM/30 ML UCUP PR SCH (20:13)
[2018-11-16] MEDS: FAMOTIDINE 20 MG/2 ML VIAL IV SCH (20:13)
[2018-11-16] MEDS ORDERED: VANCOMYCIN 2.25 GM in NA CHLORIDE 0.9% 500 ML IVPB ONE (21:00)
[2018-11-16] MEDS ORDERED: NACHLORIDE 0.45% 1,000 ML with NA BICARB 8.4% 100 MEQ IV SCH ×2 (23:00)
[2018-11-17] MEDS ORDERED: SODIUM BICARB 50 MEQ/50ML VIAL ONE (01:07)
[2018-11-17] MEDS ORDERED: NACHLORIDE 0.45% 1,000 ML IV ONE (01:31)
--- NOTE | 2018-11-17 04:04 | CON ---
Date of Consultation: 11/16/2018 Chief Complaint: Severe acute kidney injury. History Of Present Illness: Acute kidney injury, nonoliguric, severe, associated with altered mental status and hepatic encephalopathy. The patient has multiple medical problems including history of l iver cirrhosis, hepatitis C, history of liver mass, previous history of multiple paracenteses, tense ascites. The patient was brought to the hospital because of progressively worse mentation. He devel oped altered mental status. He was found to have severe hyperazotemia. BUN was 121, creatinine 4.36 . He was found to have hyperkalemia, potassium was 5.4 and hyponatremia, sodium 130. The patient sotomayor s chronic kidney disease stage 3. Baseline creatinine level was ranging from 1.7 to 2.5. The patient has multiple medical problems including alcoholic liver cirrhosis, hepatitis C, liver can cer stage IV with metastasis to stomach, history of esophageal varices, and GERD. He was seen previo usly by oncologist at [facility]. He was brought by family members because of severe altered mental status. The patient was evaluated in the emergency room. BUN was 123. Ammonia level 211, bilirubi n 1.6. Lactic acid was elevated. Bicarbonate was 13. CT scan was done to rule out bleeding, did no t show acute changes when CT scan was done with head imaging. Chest x-ray was negative for pneumonia . Blood cultures were obtained and pending. Urine cultures were obtained. The patient received IV fluids for volume resuscitation and received lactulose for severe hyperammonemia. Review of Systems: Unobtainable, the patient is very lethargic. Past Medical History: Multiple medical problems including liver cirrhosis, hepatitis C, diabetes eldon litus, GERD, esophageal varices, hepatocellular carcinoma stage IV with metastasis to the stomach. Past Surgical History: Lipoma removed. Family History: Mother, diabetes. Father, hypertension. Brother, brain tumor and lung cancer. Social History: There is no history of IV drug abuse. No alcohol. No tobacco. Physical Examination: General: The patient is very lethargic. Eyes: No hemorrhagic changes. Ears, Nose, Mouth, and Throat: Oral mucosa moist. Neck: Supple. Lungs: Clear to auscultation bilaterally. Heart: S1, S2. Abdomen: Ascites present. Extremities: Edema present in both legs. Neurological: Moving extremities, although he does not follow commands. No tremor. Laboratory Data: PT 12.9, INR 1.0. Hemoglobin 12.5, WBC 6.2, platelet count is 97,000. Sodium 130, potassium 5.4, BUN 121, creatinine 4.36, glucose 166, magnesium 3.4. Impression And Plan: 1.Severe altered mental status secondary to toxic and hepatic encephalopathy complicated with possib le sepsis. Etiology is unknown. Continue to monitor blood culture and urine culture. Continue IV a ntibiotics. 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 3.Acute renal failure on chronic kidney disease, there is underlying diabetic kidney disease. Susana nue IV fluids. 4.Prerenal azotemia, likely hepatorenal syndrome. 5.Monitor blood pressure. Continue midodrine for blood pressure support and octreotide for hepatore nal syndrome. The patient although may need to start dialysis. 6.Hypertension. Kayexalate as needed. Monitor acidosis and adjust bicarbonate. 7.Nausea, vomiting, volume depletion. Continue hydration with normal saline. 8.Hepatic encephalopathy. Continue to treat hyperammonemia. Lactulose was started. NEWTON/MODL Voice ID: [id number] Report ID: [id number]
[2018-11-17 05:01] LABS: Absolute Lymphocytes (CBC) 0.4 K/uL (0.7-4.9); Absolute Monocytes 0.8 K/uL (0.1-1.3); Absolute Neutrophil 3.9 K/uL (1.8-8.0); Basophils % 0.3 % (0-1.3); Hematocrit 31.5 % (39.6-49.0); Lymphocytes % 7.5 % (15.3-44.8); MPV 10.9 fL (7.6-11.3); Monocytes % 14.7 % (3.3-12.3); RBC Red Blood Cell Count 3.03 M/uL (4.33-5.43)
[2018-11-17 05:20] LABS: Albumin 2.4 g/dL (3.4-5.0); Bilirubin Total 1.4 mg/dL (0.2-1.0); Protein, Total 6.8 g/dL (6.4-8.2)
[2018-11-17] MEDS: INSULIN -REGULAR HUMAN 50 UNIT/0.5 ML ML SQ SCH ×5 (05:49→20:03)
[2018-11-17 05:57] LABS: Arterial Blood Carboxyhemoglob 1.7 % (0-1.5); Blood Gas Oxyhemoglobin 95.6 % (94-97); Blood Gas RHB 95.6 %; Blood O2 Saturation 97.9 % (92-98.5)
[2018-11-17 06:31] LABS: Blood Morphology Comment NOT SEEN (NOT SEEN); Platelet Estimate DECR
--- NOTE | 2018-11-17 08:36 | RAD REPORT ---
EXAM DESCRIPTION: CT - Chest Abd Pelvis Wo Con - 11/17/2018 8:06 am CLINICAL HISTORY: Chest and abdomen pain. sepsis,ca;Malaise COMPARISON: Paracentesis Proc Guidance dated 11/12/2018 TECHNIQUE: A limited noncontrast study was performed. All CT scans are performed using dose optimization technique as appropriate and may include automated exposure control or mA/KV adjustment according to patient size. FINDINGS: The lungs are clear.No pleural or pericardial effusion.No intrathoracic adenopathy. Irregular appearance to the liver is again noted with areas of hyperdensity present likely related to previous intervening therapy. Mild ascites is present. Cholelithiasis. The spleen is mildly prominen t. The pancreas and kidneys are unremarkable. Multiple large soft tissue masses are seen in the omentum compatible with carcinomatosis. No bowel ob struction or abscess. Scattered diverticulosis is present. No acute fracture evident. No pneumoperitoneum or intra-abdominal abscess. IMPRESSION: Irregular appearance of the liver compatible with known history of liver malignancy. Adv anced metastatic disease is present with large omental mass is present compatible with omental carcin omatosis. Mild ascites.
[2018-11-17] MEDS: FAMOTIDINE 20 MG/2 ML VIAL IV SCH (09:00)
[2018-11-17] MEDS ORDERED: CEFEPIME 1 GM/VIAL IV SCH (09:00)
[2018-11-17] MEDS ORDERED: VANCOMYCIN 1 GM in NA CHLORIDE 0.9% 500 ML IVPB SCH (09:00)
[2018-11-17] MEDS ORDERED: Rifaximin 550 MG Tab PO SCH (09:00)
--- NOTE | 2018-11-17 09:16 | P.PN ---
Subjective Date of Service: 11/17/18 Primary Care Provider: Dr. Flynn; Oncology-Dr. Arias([facility]) Chief Complaint: Altered mental status Subjective: Other (Patient improved. Less confusion this morning. Patient able to answer more questions more appropriately today. Ammonia level improved. ) Physical Examination - Vital Signs Temperature: 97.8 F Blood Pressure: 126/68 Pulse: 84 Respirations: 14 Pulse Ox (%): 100 - Physical Exam General: Alert, Oriented x2, Cooperative, Other (Less confusion today.) HEENT: Atraumatic Neck: Supple Respiratory: Clear to auscultation bilaterally, Normal air movement Cardiovascular: Normal pulses, Regular rate/rhythm Gastrointestinal: Normal bowel sounds, Soft and benign, Non-distended, No tenderness, No masses, No rebound, No guarding, Ascites Musculoskeletal: No erythema, No tenderness, No warmth Integumentary: No erythema, No warmth, No cyanosis Neurological: Normal speech, Normal strength at 5/5 x4 extr, Normal tone, Other (Less confusion today.) - Studies Laboratory Data (last 24 hrs) 11/16/18 12:50: PT 12.9 H, INR 1.10 11/16/18 12:50: WBC 6.2 D, Hgb 12.5 L, Hct 36.9 L, Plt Count 97 L D 11/16/18 12:50: Sodium 130 L, Potassium 5.4 H, BUN 121 H D, Creatinine 4.36 H D , Glucose 166 H, Magnesium 3.4 H, Total Bilirubin 1.6 H, AST 330 H*, ALT 131 H, Alkaline Phosphatase 391 H Medications List Reviewed: Yes Assessment & Plan Discharge Plan: Home Plan to discharge in: Greater than 2 days Physician Review Additional Text: Impression: Altered mental status secondary to toxic and hepatic encephalopathy complicated with possible underlying sepsis etiology unknown 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 He is able to answer questions better. Patient appears to be able to take oral intake. Will transition to oral lactulose. Will maintain 2-3 bowel movements per day. Patient had good bowel movement Overnite. Ammonia level improved. Continue to monitor closely. ER physician spoke to his oncologist at [facility]. Patient's cancer is getting worse. Oncologist recommends hospice. CT scan shows hepatocellular carcinoma with metastasis to the omentum. Patient continues on IV antibiotic therapy. Will continue to monitor closely. Blood cultures obtained. Patient to have paracentesis to evaluate for possible spontaneous bacterial peritonitis. Stage IV hepatocellular carcinoma with metastasis to the omentum: ER physician' s spoke to his oncologist at [facility]. His condition is getting worse. Oncologist recommends hospice. Case discussed at length with family. If his condition does not improve will need to consider hospice. So far his mentation has improved to with lactulose. Will continue monitor and assess closely. Acute renal failure with metabolic acidosis: Likely from dehydration. Continue with IV fluids. Nephrology added bicarb to fluids. Will continue monitor closely. Renal function improved. Await further recommendations from nephrology Diabetes mellitus type 2: Will monitor closely. Will provide sliding scale. Thrombocytopenia: Likely related to liver cirrhosis and hepatocellular carcinoma. Will hold off on DVT prophylaxis with Lovenox. Hepatitis-C: Will monitor liver function test. Ascites with history of recurrent paracentesis: Patient to have radiology assisted paracentesis to further evaluate for possible SBP. Patient will require IV albumin after paracentesis. Will monitor closely. Patient has been getting recurrent paracentesis every week due to ascites. GERD with history of esophageal varices with banding: Will provide Pepcid. No GI bleeding noted. Will monitor closely. Hyperkalemia: Improved. Continue monitor closely. Nausea and vomiting with dehydration: Continue with IV fluids. Will provide medication for nausea. Time Spent Managing Pts Care (In Minutes): 55
[2018-11-17] MEDS: CEFEPIME/SWI 1gm 10 ML IV SCH (09:30)
[2018-11-17] MEDS: LACTULOSE 20 GM/30 ML UCUP PR SCH ×5 (10:10→20:06)
[2018-11-17] MEDS: PANTOPRAZOLE 40 MG INJ IVP SCH (10:12)
[2018-11-17] MEDS: NACHLORIDE 0.45% 1,000 ML with NA BICARB 8.4% 100 MEQ IV SCH ×4 (10:14→17:21)
[2018-11-17] MEDS: THIAMINE 200 MG/2 ML INJ IVP SCH (10:21)
[2018-11-17] MEDS ORDERED: D50W 25 GM/50 ML SYRINGE IV PRN (16:28)
[2018-11-17] MEDS ORDERED: GLUCAGON 1 MG/VIAL IM PRN (16:28)
[2018-11-17] MEDS: NA CHLORIDE 0.9% 1,000 ML IV SCH (18:00)
[2018-11-17 18:23] LABS: Albumin 2.4 g/dL (3.4-5.0); Bilirubin Total 1.4 mg/dL (0.2-1.0); Phosphorus 4.5 mg/dL (2.5-4.9); Potassium 4.9 mmol/L (3.5-5.1)
--- NOTE | 2018-11-17 19:55 | RAD REPORT ---
EXAM DESCRIPTION: US - Renal Ultrasound-Complete - 11/17/2018 7:42 pm CLINICAL HISTORY: . Acute renal failure . FINDINGS: The right kidney measures 12 cm with a normal echotexture. The left kidney measures 10 cm with a normal echotexture. Hydronephrosis is not seen. The bladder appears grossly IMPRESSION: Unremarkable renal ultrasound.
[2018-11-17] MEDS: LACTULOSE 20 GM/30 ML UCUP PO SCH (20:08)
--- NOTE | 2018-11-17 22:49 | PN ---
Date of Progress Note: 11/17/2018 Chief Complaint: Acute kidney injury, severe, associated with altered mental status; hepatic encepha lopathy; severe hyperammonemia. The patient has nonoliguric urine output. He was found to have florentino re metabolic acidosis and was started on bicarbonate drip. Review of Systems: The patient is more alert today, although he is confused. Physical Examination: Lungs: Clear to auscultation bilaterally. Heart: S1, S2. Abdomen: Soft. Extremities: No edema. Laboratory Data: Hemoglobin 10.8, WBC 5.1, platelet count is 82,000. Chemistry shows sodium 137, po tassium 5.0, chloride 108, CO2 19, BUN 107, creatinine 3.86, glucose 118, calcium 7.8. Impression And Plan: 1.Acute kidney injury secondary to severe prerenal azotemia, hypovolemia, acute tubular necrosis wit h nonoliguric urine output associated with metabolic acidosis and hyperkalemia. Bicarbonate level im proved from 15 to 19. Potassium level is normalizing and was 5.4 and improved to 5.0. Monitor elect rolytes closely. Continue IV fluids. The bicarbonate drip will be weaned off. Continue normal sali ne for hydration. The patient may require dialysis if renal function does not improve over next 48 h ours. 2.Hyperammonemia, improving with treatment. Ammonia level is 75. On arrival to the hospital, the patient was severely obtunded. He had hepatic encephalopathy. Ammonia level was 211. EB/MODL Voice ID: [id number] Report ID: [id number]
[2018-11-18] MEDS: NA CHLORIDE 0.9% 1,000 ML IV SCH ×3 (01:00→16:56)
[2018-11-18 05:30] LABS: Absolute Lymphocytes (CBC) 0.5 K/uL (0.7-4.9); Absolute Monocytes 0.8 K/uL (0.1-1.3); Absolute Neutrophil 3.6 K/uL (1.8-8.0); Basophils % 0.4 % (0-1.3); Eosinophils % 2.1 % (0-4.4); Hematocrit 29.9 % (39.6-49.0); Lymphocytes % 9.7 % (15.3-44.8); MPV 10.9 fL (7.6-11.3); RBC Red Blood Cell Count 2.88 M/uL (4.33-5.43)
[2018-11-18 05:43] LABS: Albumin 2.3 g/dL (3.4-5.0); Bilirubin Total 1.2 mg/dL (0.2-1.0); Potassium 4.8 mmol/L (3.5-5.1); Protein, Total 6.5 g/dL (6.4-8.2)
[2018-11-18] MEDS: INSULIN -REGULAR HUMAN 50 UNIT/0.5 ML ML SQ SCH ×4 (07:30→21:00)
--- NOTE | 2018-11-18 08:25 | ECHO ---
HEIGHT: 6 ft 1 in WEIGHT: 224 lb 11.2 oz DATE OF STUDY: 11/17/[address]: Tanner Mancini DO 2-DIMENSIONAL: YES M.MODE: YES DOPPLER: YES COLOR FLOW: YES TDS: YES PORTABLE: NO DEFINITY: NO BUBBLE STUDY: NO DIAGNOSIS: SEPSIS, LIVER CANCER WITH CIRRHOSIS CARDIAC HISTORY: CATHERIZATION: NO SURGERY: NO PROSTHETIC VALVE: NO PACEMAKER: NO MEASUREMENTS (cm) DIASTOLIC (NORMALS) SYSTOLIC (NORMALS) IVSd 1.1 (0.6-1.2) LA Diam (1.9-4.0) LVEF 68% LVIDd 4.8 (3.5-5.7) LVIDs 3.0 (2.0-3.5) %FS 38% LVPWd 1.5 (0.6-1.2) Ao Diam 3.1 (2.0-3.7) 2 DIMENSIONAL ASSESSMENT: RIGHT ATRIUM: NORMAL LEFT ATRIUM: NORMAL RIGHT VENTRICLE: NORMAL LEFT VENTRICLE: LEFT VENTRICULAR HYPERTROPHY TRICUSPID VALVE: NORMAL MITRAL VALVE: MITRAL ANNULAR CALCIFICATION PULMONIC VALVE: NORMAL AORTIC VALVE: SCLEROSIS PERICARDIAL EFFUSION: NONE AORTIC ROOT: NORMAL LEFT VENTRICULAR WALL MOTION: NORMAL DOPPLER/COLOR FLOW: MILD TRICUSPID REGURGITATION. COMMENTS: LEFT VENTRICULAR HYPERTROPHY. NORMAL LEFT VENTRICULAR EJECTION FRACTION. MILD TRICUSPID REGURGITATION. MITRAL ANNULAR CALCIFICATION. AORTIC SCLEROSIS WITH NO STENOSIS. TECHNOLOGIST: Karrie CHEN
[2018-11-18] MEDS ORDERED: FAMOTIDINE 20 MG/2 ML VIAL IV SCH (09:00)
[2018-11-18] MEDS ORDERED: VANCOMYCIN 1.75 GM in NA CHLORIDE 0.9% 500 ML IVPB SCH (09:00)
[2018-11-18] MEDS: LACTULOSE 20 GM/30 ML UCUP PO SCH ×4 (09:05→21:15)
[2018-11-18] MEDS: CEFEPIME/SWI 1gm 10 ML IV SCH (09:05)
[2018-11-18] MEDS: THIAMINE 200 MG/2 ML INJ IVP SCH (09:05)
[2018-11-18] MEDS: PANTOPRAZOLE 40 MG INJ IVP SCH (09:05)
--- NOTE | 2018-11-18 10:02 | P.PN ---
Subjective Date of Service: 11/18/18 Primary Care Provider: Dr. Flynn; Oncology-Dr. 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 Continue with lactulose orally. Patient to have paracentesis today. Will transition to the floor. What physical therapy assess ambulation. Overall condition concerning his carcinoma is worsening. Will need discuss with patient about possible hospice at discharge. Will see how he progresses over the next day and determine whether he is going to desire skilled placed or hospice. Stage IV hepatocellular carcinoma with metastasis to the omentum: ER physician' s spoke to his oncologist at [facility]. His condition is getting worse. Oncologist recommends hospice. Case discussed at length with family. If his condition does not improve will need to consider hospice. So far his mentation has improved with lactulose. Will continue monitor and assess closely. Acute renal failure with metabolic acidosis: Likely from dehydration. IV fluids adjusted by Nephrology Diabetes mellitus type 2: Will monitor closely. Will provide sliding scale. Thrombocytopenia: Likely related to liver cirrhosis and hepatocellular carcinoma. Will hold off on DVT prophylaxis with Lovenox. Hepatitis-C: Will monitor liver function test. Ascites with history of recurrent paracentesis: Patient to have radiology assisted paracentesis to further evaluate for possible SBP. Patient will require IV albumin after paracentesis. Will monitor closely. Patient has been getting recurrent paracentesis every week due to ascites. GERD with history of esophageal varices with banding: Will provide Pepcid. No GI bleeding noted. Will monitor closely. Hyperkalemia: Improved. Continue monitor closely. Nausea and vomiting with dehydration: Continue with IV fluids. Will provide medication for nausea. Time Spent Managing Pts Care (In Minutes): 55
--- NOTE | 2018-11-18 15:00 | RAD REPORT ---
EXAM DESCRIPTION: US - Abdomen Exam Limited - 11/18/2018 2:53 pm CLINICAL HISTORY: Abdominal pain. FINDINGS: A moderate amount of ascites is present within the abdomen and pelvis. IMPRESSION: Moderate amount of ascites
--- NOTE | 2018-11-18 16:22 | P.PN ---
Subjective Date of Service: 11/18/18 Primary Care Provider: Dr. Flynn; Oncology-Dr. Arias([facility]) Chief Complaint: Altered mental status Subjective: No new changes Pt cr stable UO ~600ml in 12hrs Abd distendied and tense US and paracentecis if ascitis Pt with overall poor prognosis , pt is not candidate for liver transplantation and failed treatment I discussed with family in details that the risk of dialysis if needed is outweigh the benefits and will not change pt prognosis Physical Examination - Vital Signs Temperature: 97.5 F Blood Pressure: 114/70 Pulse: 89 Respirations: 18 Pulse Ox (%): 100 - Physical Exam General: Alert, Confused HEENT: Atraumatic Neck: Supple, Without JVD or thyroid abnormality Respiratory: Clear to auscultation bilaterally, Normal air movement Cardiovascular: No edema, Regular rate/rhythm, Normal S1 S2 Gastrointestinal: Distended, Ascites - Studies Medications List Reviewed: Yes Assessment And Plan - Current Problems (Diagnosis) (1) Acute renal insufficiency Onset Date: 10/28/18 Current Visit: No Status: Acute (2) Cirrhosis Onset Date: 11/03/18 Current Visit: No Status: Acute - Plan AISHA on CKD pt with possible HRS II US no hydro the risk of HD is outweigh the benfitis, dicussed with family no need for renal replacement therapy at this tiome renal dose meds monitor vanc level Met liver Ca no candidate for transplant failed medical treatment high ammonia cont lactulose overall poor prognosis
[2018-11-19 04:27] LABS: Absolute Lymphocytes (CBC) 0.3 K/uL (0.7-4.9); Absolute Monocytes 0.7 K/uL (0.1-1.3); Absolute Neutrophil 3.3 K/uL (1.8-8.0); Basophils % 0.4 % (0-1.3); Eosinophils % 2.8 % (0-4.4); Hematocrit 30.3 % (39.6-49.0); Lymphocytes % 7.7 % (15.3-44.8); MPV 11.1 fL (7.6-11.3); RBC Red Blood Cell Count 2.88 M/uL (4.33-5.43)
[2018-11-19 04:28] LABS: Monocytes % 16.4 % (3.3-12.3)
[2018-11-19 04:36] LABS: Albumin 2.4 g/dL (3.4-5.0); Magnesium 2.9 mg/dL (1.8-2.4); Potassium 4.9 mmol/L (3.5-5.1); Protein, Total 6.7 g/dL (6.4-8.2)
[2018-11-19] MEDS: NA CHLORIDE 0.9% 1,000 ML IV SCH (05:20)
[2018-11-19] MEDS: INSULIN -REGULAR HUMAN 50 UNIT/0.5 ML ML SQ SCH ×4 (07:30→21:00)
[2018-11-19] MEDS: THIAMINE 200 MG/2 ML INJ IVP SCH (08:50)
[2018-11-19] MEDS: PANTOPRAZOLE 40 MG INJ IVP SCH (08:51)
[2018-11-19] MEDS: LACTULOSE 20 GM/30 ML UCUP PO SCH ×4 (08:55→20:09)
--- NOTE | 2018-11-19 10:02 | RAD REPORT ---
EXAM DESCRIPTION: US - Paracentesis Proc Guidance - 11/19/2018 9:18 am CLINICAL HISTORY: ascites Ascites COMPARISON: Paracentesis Proc Guidance dated 11/12/2018 FINDINGS: Informed consent was obtained and time-out was performed. Patient's abdomen was prepped and draped in the usual sterile fashion. 1% lidocaine was used for loca l anesthetic purposes. A small skin incision was made in the right lower quadrant. A paracentesis catheter was guided into t he peroneal cavity under sonographic guidance. A small amount of fluid was sent for requested lab studies. A large volume paracentesis was performed . The patient tolerated the procedure well. IMPRESSION: Successful ultrasound-guided paracentesis.
[2018-11-19] MEDS: CEFEPIME/SWI 1gm 10 ML IV SCH (10:25)
[2018-11-19] MEDS ORDERED: ALBUMIN HUMAN 25% 100 ML IV ONE (11:00)
[2018-11-19 11:32] LABS: Appearance TURBID (CLEAR); Body Fluid Source PERITONEAL; Body Fluid WBC 124 /mm^3; Color of fluid Red (COLORLESS)
--- NOTE | 2018-11-19 12:53 | P.PN ---
Subjective Date of Service: 11/19/18 Primary Care Provider: Dr. Flynn; Oncology-Dr. Arias([facility]) Chief Complaint: Altered mental status Subjective: Improving (Patient improved. Patient more alert today. Patient status post paracentesis.) Physical Examination - Vital Signs Temperature: 97.3 F Blood Pressure: 115/60 Pulse: 95 Respirations: 16 Pulse Ox (%): 100 - Physical Exam General: Alert, In no apparent distress, Oriented x3, Cooperative HEENT: Atraumatic Neck: Supple Respiratory: Clear to auscultation bilaterally, Normal air movement Cardiovascular: Normal pulses, Regular rate/rhythm Gastrointestinal: Normal bowel sounds, Soft and benign, Non-distended, No masses , No rebound, No guarding, Ascites (Status post paracentesis) Integumentary: No erythema, No warmth, No cyanosis Neurological: Normal speech, Normal strength at 5/5 x4 extr, Normal tone, Normal affect - Studies Medications List Reviewed: Yes Assessment & Plan Discharge Plan: Home Plan to discharge in: 24 Hours Physician Review Additional Text: Impression: Altered mental status secondary to toxic and hepatic encephalopathy complicated with possible underlying sepsis etiology unknown 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 Patient had paracentesis today. Patient doing well. Left message with his oncologist to further address his stage IV hepatocellular carcinoma. A long discussion with family and patient. Patient wishes to continue to get better hopefully to get immunotherapy. Will have physical therapy a assess ambulation. Patient eventually wants to go home. Patient appears compliant with his medications. Family has done well over the past year to keep him out of the hospital. Tao discussion concerning his prognosis. He understands his cancer will not improve. Patient may benefit with continued therapy. Plan of care is to go home with medication and follow up with oncology. Hopefully no need for dialysis at this time. Will discuss with nephrology. Stage IV hepatocellular carcinoma with metastasis to the omentum: Left message with oncologist to discuss plan of care. Acute renal failure with metabolic acidosis: Renal function improved. No need for dialysis at this time. Will continue monitor closely. Encourage oral intake. Diabetes mellitus type 2: Will monitor closely. Will provide sliding scale. Thrombocytopenia: Likely related to liver cirrhosis and hepatocellular carcinoma. Will hold off on DVT prophylaxis with Lovenox. Hepatitis-C: Will monitor liver function test. Ascites with history of recurrent paracentesis: The patient had paracentesis today. Patient significantly improved. Will continue monitor closely. GERD with history of esophageal varices with banding: Will provide Pepcid. No GI bleeding noted. Will monitor closely. Hyperkalemia: Improved. Continue monitor closely. Nausea and vomiting with dehydration: No nausea noted. Encourage ambulation. Will discontinue IV fluids. Encourage oral intake.. Time Spent Managing Pts Care (In Minutes): 55
--- NOTE | 2018-11-20 02:01 | PN ---
Date of Progress Note: 11/19/2018 Chief Complaint: Acute kidney injury. The patient has multiple medical problems including history o f hepatic encephalopathy. He came to the hospital because of severe altered mental status. He was f ound to have acute kidney injury, nonoliguric. The patient is on IV fluids. Renal function has not improved significantly. The patient is considering hemodialysis. The patient has history of metastatic liver cancer. He came to the hospital with hyperammonemia. Th e patient is on lactulose. Mental status is improving. The patient is on IV fluids for hepatorenal syndrome. Review of Systems: Denies fever, chills. Physical Examination: Lungs: Few crackles at bases. Heart: S1, S2. Abdomen: Soft, benign. Extremities: No edema. Lab Work: Hemoglobin 10.3, WBC 4.5, platelet count is 67,000. Chemistry showed sodium 135, potassiu m 4.9, chloride 107, CO2 19. BUN 110, creatinine 3.51, glucose 146, magnesium 2.9, calcium 8.1. Impression And Plan: 1.Acute kidney injury. Renal function has not improved significantly. There is severe hyperazotemi a. The patient does not have uremic symptomatology. 2.Metabolic acidosis. The patient received sodium bicarbonate drip. Monitor electrolytes. Adjust treatment as needed. 3.Hepatorenal syndrome. Monitor blood pressure and midodrine as needed. Continue IV normal saline. EB/CAMI Voice ID: [id number] Report ID: [id number]
[2018-11-20 05:38] LABS: Absolute Lymphocytes (CBC) 0.4 K/uL (0.7-4.9); Absolute Monocytes 0.5 K/uL (0.1-1.3); Absolute Neutrophil 1.9 K/uL (1.8-8.0); Basophils % 0.6 % (0-1.3); Eosinophils % 4.3 % (0-4.4); Hematocrit 26.9 % (39.6-49.0); Lymphocytes % 13.9 % (15.3-44.8); MPV 11.4 fL (7.6-11.3); Monocytes % 17.2 % (3.3-12.3); RBC Red Blood Cell Count 2.57 M/uL (4.33-5.43)
[2018-11-20 06:29] LABS: Albumin 3.1 g/dL (3.4-5.0); Bilirubin Total 1.6 mg/dL (0.2-1.0); Magnesium 2.9 mg/dL (1.8-2.4); Potassium 4.6 mmol/L (3.5-5.1); Protein, Total 6.6 g/dL (6.4-8.2)
[2018-11-20] MEDS ORDERED: PANTOPRAZOLE 40MG TABLET PO SCH (06:30)
[2018-11-20] MEDS ORDERED: ONDANSETRON 4 MG/2 ML VIAL IV PRN (07:11)
[2018-11-20 07:30] LABS: Anisocytosis SLIGHT; Blood Morphology Comment NOTED (NOT SEEN); Macrocytosis SLIGHT; Platelet Estimate DECR
[2018-11-20] MEDS: INSULIN -REGULAR HUMAN 50 UNIT/0.5 ML ML SQ SCH ×2 (07:30→11:30)
[2018-11-20 08:13] VITALS: TEMP 98.2
[2018-11-20] MEDS: LACTULOSE 20 GM/30 ML UCUP PO SCH ×2 (08:31→13:33)
[2018-11-20 08:36] LABS: Rouleau NOTED
[2018-11-20] MEDS ORDERED: FUROSEMIDE 20 MG TABLET PO SCH (09:00)
[2018-11-20] MEDS ORDERED: AMOX/K CLAV 500 MG TAB PO SCH (09:00)
[2018-11-20] MEDS ORDERED: THIAMINE HCL 100 MG TABLET PO SCH (09:00)
[2018-11-20] MEDS ORDERED: FOLIC ACID 1 MG TABLET PO SCH (09:00)
[2018-11-20 11:16] VITALS: O2SAT 97
--- NOTE | 2018-11-20 12:09 | P.DS ---
Admission Date: 11/16/18 Discharge Date: 11/20/18 Primary Care Provider: Dr. Flynn; Oncology-Dr. Arias([facility]) Disposition: ROUTINE DISCHARGE Discharge Condition: GOOD Reason for Admission: Altered mental status Consultations: GI-Dr. Acevedo Nephrology-Dr. Stephens Procedures: CT head: COMPARISON: None. TECHNIQUE: Computed axial tomography of the head was obtained. IV contrast was not requested. All CT scans are performed using dose optimization technique as appropriate and may include automated exposure control or mA/KV adjustment according to patient size. FINDINGS: An intracranial bleed is not seen . The ventricles are normal in caliber. No extra-axial fluid collection is noted. Fluid within the sinuses/ mastoids is not seen. IMPRESSION: No acute intracranial abnormality is seen. CT scan: COMPARISON: Paracentesis Proc Guidance dated 11/12/2018 TECHNIQUE: A limited noncontrast study was performed. All CT scans are performed using dose optimization technique as appropriate and may include automated exposure control or mA/KV adjustment according to patient size. FINDINGS: The lungs are clear.No pleural or pericardial effusion.No intrathoracic adenopathy. Irregular appearance to the liver is again noted with areas of hyperdensity present likely related to previous intervening therapy. Mild ascites is present. Cholelithiasis. The spleen is mildly prominent. The pancreas and kidneys are unremarkable. Multiple large soft tissue masses are seen in the omentum compatible with carcinomatosis. No bowel obstruction or abscess. Scattered diverticulosis is present. No acute fracture evident. No pneumoperitoneum or intra-abdominal abscess. IMPRESSION: Irregular appearance of the liver compatible with known history of liver malignancy. Advanced metastatic disease is present with large omental mass is present compatible with omental carcinomatosis. Mild ascites. Renal US: FINDINGS: The right kidney measures 12 cm with a normal echotexture. The left kidney measures 10 cm with a normal echotexture. Hydronephrosis is not seen. The bladder appears grossly IMPRESSION: Unremarkable renal ultrasound. ECHO: EF 68% LEFT VENTRICULAR WALL MOTION: NORMAL DOPPLER/COLOR FLOW: MILD TRICUSPID REGURGITATION. COMMENTS: LEFT VENTRICULAR HYPERTROPHY. NORMAL LEFT VENTRICULAR EJECTION FRACTION. MILD TRICUSPID REGURGITATION. MITRAL ANNULAR CALCIFICATION. AORTIC SCLEROSIS WITH NO STENOSIS. Paracentesis: COMPARISON: Paracentesis Proc Guidance dated 11/12/2018 FINDINGS: Informed consent was obtained and time-out was performed. Patient's abdomen was prepped and draped in the usual sterile fashion. 1% lidocaine was used for local anesthetic purposes. A small skin incision was made in the right lower quadrant. A paracentesis catheter was guided into the peroneal cavity under sonographic guidance. A small amount of fluid was sent for requested lab studies. A large volume paracentesis was performed. The patient tolerated the procedure well. IMPRESSION: Successful ultrasound-guided paracentesis. 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 Acute on chronic renal failure stage IV with metabolic acidosis Diabetes mellitus type 2 Thrombocytopenia Hepatitis-C Ascites with history of recurrent paracentesis status post paracentesis GERD with history of esophageal varices with banding Hyperkalemia Nausea and vomiting with dehydration Anemia of chronic disease with thrombocytopenia secondary to liver disease and cancer Brief History of Present Illness: 58-year-old male presented to emergency room with increasing altered mental status. Patient presents with altered mental status. This is been getting worse over the last several days. Patient has had poor oral intake. He has not been able to take his lactulose. 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 Patient seen at [facility]. Most of the information came from the family and ER physician. In the ER patient evaluated. Blood pressure was low. Patient was given IV fluid bolus. White count 6, hemoglobin 12.5, platelet count of is 97. Sodium 130, potassium 5.4, chloride 102, bicarb 15, BUN of 123 with a GFR 14 varicose C6. Ammonia level 211. Total bilirubin 1.6, lactic acid elevated. Pro calcitonin elevated at 10.29. Troponin 0.03. Blood gases showed a pH is 7.38 with P CO2 24, PO2 108. Bicarb 14. CT head negative. Chest x-ray negative. Blood cultures obtained. Urine culture to be obtained as well. Patient was given IV fluid bolus and lactulose in the emergency room. Patient admitted for treatment. When I saw the patient in the ER, patient was oriented to person. He was confused. ER physician spoke to his oncologist at [facility]. His cancer is getting worse. Patient has been getting paracentesis every week. Oncologist's had recommended hospice. Patient is DNR as per family. Hospital Course: Patient presented with altered mental status secondary to hepatic encephalopathy. This was complicated with stage IV hepatocellular carcinoma with advanced metastatic disease with large omental mass compatible with omental carcinomatosis. Patient was treated. Patient required and responded to lactulose therapy. During the course of his stay patient had paracentesis with improvement of symptoms. Case discussed at length with nephrology and oncology. Patient is seen at [facility]. Oncology mentions his prognosis is poor. Oncology plans to reassess patient for possible therapy in the future but this is doubtful. This was addressed with the patient and family in detail. Advanced directives address in detail. Patient wishes to be DNR. Patient not ready for hospice at this time. He is to continue with symptomatic treatment including lactulose 4 times a day to maintain bowel movements 3-4 day , this can be adjusted. Patient will also continue with diuretic therapy including Lasix 20 mg daily and Aldactone 25 mg daily. Patient will also continue with thiamine 100 mg daily and folic acid 1 mg daily. Patient plans to follow up with oncology soon. Patient with acute on chronic renal failure stage 4. Patient received IV fluids during his stay. Patient seen and evaluated by nephrology. His renal function slightly improved. No need for dialysis at this time. Patient may require dialysis in the future but this will likely be very difficult. Patient will likely not be a candidate in the future if his liver cancer continues to worsen. This was addressed in detail with the patient and family. Patient understands. Recommend to follow up with nephrology in 1-2 weeks to follow his progress. Recommend to recheck lab-CMP in 1 week. Patient with GERD with history of esophageal varices with banding. No bleeding noted Patient will continue with the Protonix 40 mg daily. Altered mental status also may be related to underlying sepsis. Cultures negative. Patient responded to lactulose well. Patient did get antibiotic therapy. Patient will continue with Augmentin 500 mg daily for 7 more days. This can be followed up as an outpatient. Patient with anemia secondary to liver disease and malignancy. Recommend to follow closely. Patient may continue with multi vitamin daily. Vital Signs/Physical Exam: Temp Pulse Resp BP Pulse Ox 98.2 F 86 18 106/57 L 100 11/20/18 08:00 11/20/18 08:32 11/20/18 08:00 11/20/18 08:32 11/20/18 08:00 General: Alert, In no apparent distress, Oriented x3, Cooperative HEENT: Atraumatic Neck: Supple Respiratory: Clear to auscultation bilaterally, Normal air movement Cardiovascular: Normal pulses, Regular rate/rhythm Gastrointestinal: Normal bowel sounds, Soft and benign, Non-distended, Ascites Musculoskeletal: No erythema, No tenderness, No warmth Integumentary: No tenderness/swelling, No erythema, No warmth, No cyanosis Neurological: Normal speech, Normal strength at 5/5 x4 extr, Normal tone, Normal affect Laboratory Data at Discharge: WBC 3.0 K/uL (4.3-10.9) L D 11/20/18 04:45 Hgb 9.1 g/dL (13.6-17.9) L 11/20/18 04:45 Hct 26.9 % (39.6-49.0) L 11/20/18 04:45 Plt Count 65 K/uL (152-406) L 11/20/18 04:45 PT 12.9 SECONDS (9.5-12.5) H 11/16/18 12:50 INR 1.10 11/16/18 12:50 Sodium 137 mmol/L (136-145) 11/20/18 05:45 Potassium 4.6 mmol/L (3.5-5.1) 11/20/18 05:45 BUN 102 mg/dL (7-18) H 11/20/18 05:45 Creatinine 3.49 mg/dL (0.55-1.3) H 11/20/18 05:45 Glucose 130 mg/dL (74-106) H 11/20/18 05:45 Phosphorus 4.5 mg/dL (2.5-4.9) 11/17/18 17:45 Magnesium 2.9 mg/dL (1.8-2.4) H 11/20/18 05:45 Total Bilirubin 1.6 mg/dL (0.2-1.0) H 11/20/18 05:45 AST 224 U/L (15-37) H 11/20/18 05:45 ALT 94 U/L (12-78) H 11/20/18 05:45 Alkaline Phosphatase 332 U/L (45-117) H 11/20/18 05:45 Home Medications: Amox/Clavulanate [Augmentin 500-125 mg Tab*] 500 mg PO DAILY #7 tab 11/20/18 Folic Acid 1 mg PO DAILY #30 tablet 11/20/18 Furosemide [Lasix*] 20 mg PO DAILY #30 tab 11/20/18 Lactulose [Cephulac*] 15 ml PO QID #1 bottle 11/20/18 Multivit with Iron,Minerals [Spectravite Senior] 1 each PO DAILY #30 tablet Ondansetron HCl [Zofran] 4 mg PO TID PRN #30 tablet 11/20/18 Pantoprazole [Protonix Tab*] 40 mg PO DAILYAC #30 tab 11/20/18 Spironolactone [Aldactone] 25 mg PO DAILY #30 tab 11/20/18 Thiamine HCl [Vitamin B-1*] 100 mg PO DAILY #30 tablet 11/20/18 New Medications: Amox/Clavulanate [Augmentin 500-125 mg Tab*] 500 mg PO DAILY #7 tab Folic Acid 1 mg PO DAILY #30 tablet Furosemide [Lasix*] 20 mg PO DAILY #30 tab Lactulose [Cephulac*] 15 ml PO QID #1 bottle Multivit with Iron,Minerals [Spectravite Senior] 1 each PO DAILY #30 tablet Ondansetron HCl [Zofran] 4 mg PO TID PRN #30 tablet PRN Reason: Nausea / Vomiting Pantoprazole [Protonix Tab*] 40 mg PO DAILYAC #30 tab Spironolactone [Aldactone] 25 mg PO DAILY #30 tab Thiamine HCl [Vitamin B-1*] 100 mg PO DAILY #30 tablet Patient Discharge Instructions: 1. Patient will follow up with his PCP in 1 week to follow up this hospitalization. 2. Patient presented with altered mental status secondary to hepatic encephalopathy. This was complicated with stage IV hepatocellular carcinoma with advanced metastatic disease with large omental mass compatible with omental carcinomatosis. Patient was treated. Patient required and responded to lactulose therapy. During the course of his stay patient had paracentesis with improvement of symptoms. Case discussed at length with nephrology and oncology. Patient is seen at [facility]. Oncology mentions his prognosis is poor. Oncology plans to reassess patient for possible therapy in the future but this is doubtful. This was addressed with the patient and family in detail. Advanced directives address in detail. Patient wishes to be DNR. Patient not ready for hospice at this time. He is to continue with symptomatic treatment including lactulose 4 times a day to maintain bowel movements 3-4 day, this can be adjusted. Patient will also continue with diuretic therapy including Lasix 20 mg daily and Aldactone 25 mg daily. Patient will also continue with thiamine 100 mg daily and folic acid 1 mg daily. Patient plans to follow up with oncology soon. 3. Patient with acute on chronic renal failure stage 4. Patient received IV fluids during his stay. Patient seen and evaluated by nephrology. His renal function slightly improved. No need for dialysis at this time. Patient may require dialysis in the future but this will likely be very difficult. Patient will likely not be a candidate in the future if his liver cancer continues to worsen. This was addressed in detail with the patient and family. Patient understands. Recommend to follow up with nephrology in 1-2 weeks to follow his progress. Recommend to recheck lab-CMP in 1 week. 4. Patient with GERD with history of esophageal varices with banding. No bleeding noted Patient will continue with the Protonix 40 mg daily. 5. Altered mental status also may be related to underlying sepsis. Cultures negative. Patient responded to lactulose well. Patient did get antibiotic therapy. Patient will continue with Augmentin 500 mg daily for 7 more days. This can be followed up as an outpatient. 6. Patient with anemia secondary to liver disease and malignancy. Recommend to follow closely. Patient may continue with multi vitamin daily. Diet: Renal Activity: Fall precautions Time spent managing pt's care (in minutes): 55
--- NOTE | 2018-11-20 13:24 | P.PN ---
Subjective Date of Service: 11/20/18 Primary Care Provider: Dr. Flynn; Oncology-Dr. Arias([facility]) Chief Complaint: Altered mental status Subjective: Improving Pt cr stable S/P 10 liters paracentecis cleared for discharge from nephrology point of view Physical Examination - Vital Signs Temperature: 98.2 F Blood Pressure: 106/57 Pulse: 86 Respirations: 18 Pulse Ox (%): 100 - Physical Exam General: Alert, In no apparent distress HEENT: Atraumatic Neck: Supple, Without JVD or thyroid abnormality Respiratory: Clear to auscultation bilaterally, Normal air movement Cardiovascular: No edema, Normal S1 S2, Abnormal S3 Gastrointestinal: Soft and benign, Distended - Studies Medications List Reviewed: Yes Assessment And Plan - Current Problems (Diagnosis) (1) Acute renal insufficiency Onset Date: 10/28/18 Current Visit: No Status: Acute (2) Cirrhosis Onset Date: 11/03/18 Current Visit: No Status: Acute - Plan AISHA on CKD pt with possible HRS II US no hydro no need for renal replacement therapy at this time renal dose meds Met liver Ca no candidate for transplant failed medical treatment high ammonia cont lactulose overall poor prognosis
[2018-11-20] MEDS ORDERED: HEPARIN 500 UNIT/5 ML SYR IV PRN (13:38)
[2018-11-20] MEDS ORDERED: ALBUMIN HUMAN 25% 100 ML IV SCH (17:00)
[2018-11-20] MEDS ORDERED: OCTREOTIDE ACETATE 100 MCG/ML IV SCH ×2 (17:00→21:00)
[2018-11-20 19:28] VITALS: BP 100/60
== END 2018-11-20 14:43 | disposition home or self-care (01) | DRG 441 ==
LOC: ER 12:37 → ERHOLD 15:47 → 3RD-ICU 17:27 → 4TH 11-18 10:00
PROVIDERS: ADMIT Family Medicine; ATTEND Family Medicine
PROC: 0W9G3ZX Drainage of Peritoneal Cavity, Percutaneous Approach, Diagnostic (ICD-10-PCS; principal; 2018-11-19)
DX: K72.90 Hepatic failure, unspecified without coma (principal); A41.9 Sepsis, unspecified organism; G92 Toxic encephalopathy; N17.0 Acute kidney failure with tubular necrosis; K76.7 Hepatorenal syndrome; R65.20 Severe sepsis without septic shock; N17.9 Acute kidney failure, unspecified; C22.7 Other specified carcinomas of liver; C78.6 Secondary malignant neoplasm of retroperitoneum and peritoneum; C80.0 Disseminated malignant neoplasm, unspecified; E87.2 Acidosis; R18.8 Other ascites; I85.00 Esophageal varices without bleeding; C78.89 Secondary malignant neoplasm of other digestive organs; E87.1 Hypo-osmolality and hyponatremia; E72.20 Disorder of urea cycle metabolism, unspecified; B18.2 Chronic viral hepatitis C; D69.6 Thrombocytopenia, unspecified; K21.9 Gastro-esophageal reflux disease without esophagitis; E87.5 Hyperkalemia; R11.2 Nausea with vomiting, unspecified; E86.0 Dehydration; D63.8 Anemia in other chronic diseases classified elsewhere; K70.31 Alcoholic cirrhosis of liver with ascites; Z66 Do not resuscitate; N18.3 Chronic kidney disease, stage 3 (moderate); I12.9 Hypertensive chronic kidney disease with stage 1 through stage 4 chronic kidney disease, or unspecified chronic kidney disease; E11.22 Type 2 diabetes mellitus with diabetic chronic kidney disease; E86.1 Hypovolemia
CPT/HCPCS: 36415; 49083; 51702; 70450; 71045; 71250; 74176; 76705; 76770; 80048; 80053; 80076; 80202; 81015; 82140; 82550; 82805; 82962; 83605; 83735; 83880; 84100; 84132; 84145; 84484; 85025; 85610; 87040; 87070; 88108; 88305; 89050; 93005; 93306; 94760; 96361; 96365; 96375; 97116; 97163; 97530; 99285; C9113; J0692; J1642; J2354; J2405; J3411; J7030; J7060; P9047

== ENCOUNTER 2018-11-28 09:11 | Inpatient (IN) | payer BC ==
--- OUTSIDE RECORDS SUMMARY | 2018-11-28 09:17 | XMS REPORT | Clinical Summary ---
:1960 Author Organization [facility] Address [address] [place] [address] Care Team Providers Name Role Phone Asked, [...] Comments COLON CANCER SCREENING 2010 SHINGLES VACCINES (#1) 2010 INFLUENZA VACCINE 04/29/2018 Results Not on fileafter 11/27/2017 Insurance Payer Benefit Plan / Group Subscriber ID Type Phone Address BCBS BCBS OUT OF STATE xxxxxxxxxxxxxxx PPO Advance Directives Patient has advance care planning documents on file. For more information, please contact:Lam [id number] [place] [address]
[2018-11-28 10:00] VITALS: BMI 29.4
[2018-11-28] MEDS ORDERED: NA CHLORIDE 0.9% 1,000 ML IV SCH ×2 (11:00→19:00)
[2018-11-28] MEDS: HYDROMORPHONE ORAL 2 MG TAB PO PRN (11:35)
[2018-11-28 11:55] LABS: Absolute Lymphocytes (CBC) 0.3 K/uL (0.7-4.9); Absolute Monocytes 0.9 K/uL (0.1-1.3); Absolute Neutrophil 4.5 K/uL (1.8-8.0); Basophils % 0.4 % (0-1.3); Eosinophils % 1.2 % (0-4.4); Lymphocytes % 4.6 % (15.3-44.8); MPV 10.7 fL (7.6-11.3); RBC Red Blood Cell Count 2.81 M/uL (4.33-5.43)
[2018-11-28 11:58] LABS: Urine Appearance CLEAR; Urine Bilirubin NEGATIVE (NEG); Urine Blood NEGATIVE (NEG); Urine Color YELLOW; Urine Glucose NEGATIVE (NEG); Urine Protein NEGATIVE (NEG); Urine Specific Gravity 1.015 (1.005-1.030); Urine Urobilinogen 0.2 mg/dL (0.2-1.0)
[2018-11-28] MEDS ORDERED: HYDROMORPHONE ORAL 2 MG TAB PO PRN (12:07)
[2018-11-28 12:30] LABS: Potassium 5.2 mmol/L (3.5-5.1)
[2018-11-28 12:37] LABS: Urine Microscopic Reflex NO UMIC
[2018-11-28] MEDS: LACTULOSE 20 GM/30 ML UCUP PO SCH (12:47)
[2018-11-28 12:48] LABS: Blood Morphology Comment NOT SEEN (NOT SEEN); Platelet Estimate DECR; Urine White Blood Cell Casts OK
[2018-11-28] MEDS ORDERED: GLUCAGON 1 MG/VIAL IM PRN (12:53)
[2018-11-28] MEDS ORDERED: D50W 25 GM/50 ML SYRINGE IV PRN (12:53)
[2018-11-28] MEDS: PANTOPRAZOLE 40MG TABLET PO SCH (13:28)
[2018-11-28 13:55] LABS: Urine Protein/Creatinine Ratio 0.16 ratio (<0.15)
[2018-11-28] MEDS: NA CHLORIDE 0.9% 1,000 ML IV SCH ×2 (14:00→17:52)
[2018-11-28] MEDS ORDERED: ALBUMIN HUMAN 25% 50 ML IV SCH (14:00)
--- NOTE | 2018-11-28 14:09 | RAD REPORT ---
EXAM DESCRIPTION: Eileen Single View11/28/2018 2:03 pm CLINICAL HISTORY: Chest pain COMPARISON: October 2017 FINDINGS: An area of subsegmental atelectasis is present within the left lung base. The right lung appears clear of acute infiltrate. The heart is normal size. A central venous line is in place
[2018-11-28] MEDS: ALBUMIN HUMAN 25% 100 ML IV SCH ×2 (15:15→21:48)
[2018-11-28] MEDS: OCTREOTIDE ACETATE 100 MCG/ML SQ SCH ×2 (15:15→21:48)
--- NOTE | 2018-11-28 16:13 | PN ---
Date of Progress Note: 11/28/2018 The patient states he feels considerably better. Has IV fluids. Discussion of the case with Nephrol richmond, Dr. Chaparro, as far as, if in fact the renal problem continues to be a candidate for dialysis. HR/MODL Voice ID: [id number] Report ID: [id number]
[2018-11-28] MEDS: INSULIN -REGULAR HUMAN 50 UNIT/0.5 ML ML SQ SCH ×2 (16:28→21:00)
--- NOTE | 2018-11-28 18:52 | CON ---
Date of Consultation: 11/28/2018 Reason For Consultation: Elevated BUN and creatinine, fluid management. History Of Present Illness: This is a pleasant and unfortunate 58-year-old gentleman with significant past medical history of hep C, complicated with liver CA with metastasis to the adrenal and to the peritoneum, complicated with portal hypertension, status post variceal banding, status post immunotherapy stopped recently because of poor response. The patient is supposed to be progressed to hospice care, diabetes complicated with neuropathy, hip C as above , TIA, ascites with recurrent paracentesis. The patient came to the hospital. The patient had paracentesis last Friday with 10 L. The patient came to the hospital because of altered mental status and increased abdominal girth, found to have ascites, hepatic encephalopathy. Primary workup showed elevated BUN and creatinine. For that reason, we have been consulted. The patient denied taking any nonsteroidal, no recent IV contrast. Reviewing the record for the patient, creatinine on this admission 5.1, GFR of 12. On previous admission, creatinine was 4 with GFR between 14 to 17. At that time, his NIMCO was within normal limits, that was back 2 weeks ago. The patient already started on IV fluid. The patient still has good urine output, according to him, more than 700 daily. Past Medical History: Includes: 1. Diabetes complicated with neuropathy since 1999. 2. Liver CA with metastatic disease to the peritoneum and the kidney, complicated with portal hypertension and cirrhosis. 3. Hep C complicated with portal hypertension, cirrhosis, status post variceal banding, ascites with recurrent paracentesis weekly 10 L. 4. TIA. Social History: Ex-alcohol. Denies any drug use. Family History: Positive for hypertension. Medications: Home medications include hydromorphone, lactulose, folic acid, Lyrica. Current medications in the hospital include: 1. Folic acid. 2. Lasix 20 mg. 3. Lactulose. 4. Zofran. 5. Pantoprazole. 6. IV fluid at 125. 7. Hydromorphone. 8. Multivitamin. Review of Systems: Head and Neck: No red eye. No ear pain. GI: Has abdominal distention. : No polyuria. No dysuria. No hematuria. MOSHGIACH: Not applicable. Respiratory: no SOB Cardiovascular: No CP Neuro: Has altered mental status. Musculoskeletal: Generalized weakness. Assessment And Plan: 1. Acute kidney injury on advanced chronic kidney disease, multifactorial. Unfortunately, the patient will not be a candidate for any peritoneal dialysis giving the fact that the patient has metastasis to peritoneum. 2. Hepatorenal type 2. 3. poor intake intake. 4. To rule out compartment syndrome secondary to tense ascites. 5. To rule out autoimmune disease secondary to hep C. 6. The patient is non-oliguric. No over volume. Severe third space with ascites. Overall, the patient has poor prognosis. I had long discussion with the patient and the family that currently the patient may need renal replacement therapy if kidney function does not improve, even though that the patient is not a very good candidate giving the poor prognosis, but the patient wanted to stay with the family as long as he can, so he agreed on the dialysis if needed. I explained risks, benefits, alternative, especially bleeding given the thrombocytopenia that the patient has and the patient agreed. I am going to start on fluid expansion including albumin, Sandostatin, and IV fluid, and we will discontinue Lasix. We will monitor the patient. In the next 24 hours if kidney function did not improve, at that time we will proceed with the dialysis. I going to go ahead and send for serology, and we will send for renal ultrasound, and we will follow up. 7. Hypertension. Given the hepatorenal suspect, I am going to discontinue all blood pressure medications especially the Lasix for the time being and we will follow up. 8. Cirrhosis with ascites, p.r.n. paracentesis. Plan for paracentesis tomorrow or day after. 9. Altered mental status, secondary to hepatic encephalopathy, questionable uremic encephalopathy, on the recovery phase. We will follow up. 10. Anemia, possible multifactorial, secondary to renal disease/GI loss secondary to gastrointestinal bleed. I going to go ahead and send for anemia workup, and we will follow up. Thank you, Dr. Flynn, for allowing us to participate in the care of your patient. WANDER Voice ID: [id number] Report ID: [id number] GRAZYNA
[2018-11-28] MEDS: MIDODRINE HCL 5 MG TABLET PO SCH (21:48)
[2018-11-29] MEDS: HYDROMORPHONE ORAL 2 MG TAB PO PRN ×3 (00:54→22:40)
[2018-11-29] MEDS: NA CHLORIDE 0.9% 1,000 ML IV SCH ×4 (02:43→20:00)
[2018-11-29] MEDS: PANTOPRAZOLE 40MG TABLET PO SCH (05:40)
[2018-11-29 06:49] LABS: Absolute Lymphocytes (CBC) 0.5 K/uL (0.7-4.9); Absolute Monocytes 0.8 K/uL (0.1-1.3); Absolute Neutrophil 2.8 K/uL (1.8-8.0); Basophils % 0.8 % (0-1.3); Eosinophils % 3.1 % (0-4.4); Hematocrit 25.9 % (39.6-49.0); Lymphocytes % 11.1 % (15.3-44.8); Monocytes % 18.7 % (3.3-12.3); RBC Red Blood Cell Count 2.48 M/uL (4.33-5.43)
[2018-11-29] MEDS: INSULIN -REGULAR HUMAN 50 UNIT/0.5 ML ML SQ SCH ×4 (07:30→21:00)
--- NOTE | 2018-11-29 08:22 | RAD REPORT ---
EXAM DESCRIPTION: US - Renal Ultrasound-Complete - 11/28/2018 10:50 pm CLINICAL HISTORY: Acute kidney injury COMPARISON: None. FINDINGS: The right kidney measures 12.5 x 5.0 x 7.2 cm. The left kidney measures 10.7 x 5.4 x 4.1 cm. Cortical thickness is normal. Increased echogenicity is present indicating underlying medical meredith al disease. No hydronephrosis or suspicious renal mass. A 2.1 centimeter benign appearing left renal cyst present. Bladder was obscured and cannot be further assessed. IMPRESSION: Medical renal disease without cortical thinning. No hydronephrosis or suspicious mass. Urinary bladder was obscured.
[2018-11-29] MEDS ORDERED: FUROSEMIDE 20 MG TABLET PO SCH (09:00)
[2018-11-29 09:12] LABS: Platelet Estimate DECR; Urine White Blood Cell Casts OK
[2018-11-29 09:13] LABS: Blood Morphology Comment NOT SEEN (NOT SEEN)
[2018-11-29] MEDS: FOLIC ACID 1 MG TABLET PO SCH (09:30)
[2018-11-29] MEDS: OCTREOTIDE ACETATE 100 MCG/ML SQ SCH ×2 (09:30→23:17)
[2018-11-29] MEDS: ALBUMIN HUMAN 25% 100 ML IV SCH ×2 (09:30→22:37)
[2018-11-29] MEDS: LACTULOSE 20 GM/30 ML UCUP PO SCH ×4 (09:30→21:00)
[2018-11-29] MEDS: MIDODRINE HCL 5 MG TABLET PO SCH ×2 (09:30→22:41)
[2018-11-29] MEDS: MULTIVITAMIN TAB PO SCH (09:31)
[2018-11-29 09:32] LABS: ALT/SGPT 107 U/L (12-78); AST/SGOT 300 U/L (15-37); Albumin 2.8 g/dL (3.4-5.0); Alkaline Phosphatase 401 U/L (45-117); BUN Blood Urea Nitrogen 121 mg/dL (7-18); Bicarbonate 15 mmol/L (21-32); Bilirubin Total 1.8 mg/dL (0.2-1.0); Ferritin 489.1 ng/mL (26-388); Glucose Level 122 mg/dL (74-106); Phosphorus 6.2 mg/dL (2.5-4.9); Protein, Total 6.6 g/dL (6.4-8.2); Sodium Level 130 mmol/L (136-145); Thyroid Stimulating Hormone 0.578 uIU/mL (0.360-3.740); Transferrin 164 mg/dL (200-360); Uric Acid 12.6 mg/dL (3.5-7.2)
[2018-11-29 09:34] LABS: Folic Acid, (Folate) > 20.0 ng/mL (3.1-17.5)
[2018-11-29 09:36] LABS: Potassium 6.2 mmol/L (3.5-5.1)
[2018-11-29] MEDS ORDERED: SOD POLYSTYREN SUL 15 GM/60 ML UCUP PO ONE (09:50)
[2018-11-29] MEDS ORDERED: INSULIN -REGULAR HUMAN 50 UNIT/0.5 ML ML IV ONE (11:02)
[2018-11-29] MEDS ORDERED: GLUCAGON 1 MG/VIAL IM PRN (11:02)
[2018-11-29] MEDS ORDERED: D50W 25 GM/50 ML SYRINGE IV PRN (11:02)
[2018-11-29] MEDS ORDERED: D50W 25 GM/50 ML SYRINGE IV ONE (11:02)
[2018-11-29] MEDS ORDERED: ALBUTEROL 2.5 MG/3 ML NEB SOL NEB SCH (12:00)
[2018-11-29] MEDS ORDERED: CALCIUM GLUC 10% INJ 4.65 MEQ in NA CHLORIDE 0.9% 100 ML IV ONE (12:00)
--- NOTE | 2018-11-29 12:42 | P.OP ---
Preoperative diagnosis: Acute Renal Failure Postoperative diagnosis: Acute Renal Failure Primary procedure: Placement of LEFT femoral temporary hemodialysis catheter Secondary procedure: ultrasound guidance and micro introducer set used Anesthesia: Local 1% lidocaine Estimated blood loss: <10cc Specimen: None Findings: Dark, Non-pulsatile blood returned Complications: None Implants: temporary hemodialysis catheter Transferred to: Other (floor bed) Condition: Good
[2018-11-29] MEDS ORDERED: SOD FERRIC GLUC COMPLX/SUCROSE 125 MG in NA CHLORIDE 0.9% 250 ML IV SCH (13:00)
--- NOTE | 2018-11-29 14:05 | PN ---
Date of Progress Note: 11/29/2018 Subjective: The patient with metastatic liver disease, the patient was admitted with altered mental status, hepatic encephalopathy complicated with hepatorenal syndrome, even though he is not that oliguric. Yesterday, we start with fluid expansion. The patient had a very good urine output according to him. Physical Examination: Vital Signs: Blood pressure 114/66, pulse of 81, afebrile. General: The patient had multiple voiding. Chest: Crackles bilateral. Heart: S1, S2. Systolic murmur. Abdomen: Ascites. Extremities: Trace edema. Laboratory Data: WBC 4.2, H and H 8.7/25.9, platelets of 86. Sodium 130, potassium 6.2, bicarb 16, chloride 106, BUN 121, creatinine 4.9, GFR of 12, uric acid of 12.6, calcium of 7.9. T-sat of 22, ferritin 489, ammonia of 98. SPEP is still pending. TSH 0.5. B12 and folate within normal limit. PTH 101. Protein creatinine 0.6. Renal ultrasound showing 12.5 x 10.7 increased echogenicity, renal cyst. Chest x-ray was done yesterday. Current Medications: The patient on its include: 1. Lactulose. 2. Folic acid. 3. Zofran. 4. Pantoprazole. 5. Normal saline. 6. Octreotide. 7. Hydromorphone. 8. Multivitamin. Assessment And Plan: 1. Acute kidney injury, multifactorial secondary to cervical intraepithelial neoplasia, hepatorenal supported with low sodium in the urine, nonoliguric, slightly on the over volume side with hyperkalemia and acidosis. I had long discussion with the patient regarding the option of treatment given the overall poor prognosis. The patient looked to me understanding about his prognosis and the patient started to lean for accepting the idea of hospice, but he likes to have home hospice with dialysis. I am going to go ahead and start the patient on dialysis as a measure of comfort care. We will do session of dialysis today and tomorrow, the patient is going to be dialyzed on low-potassium bath and we will follow up the patient. 2. Hyperkalemia. We will treat the patient with albuterol, D50 and insulin and we will dialyze the patient on low-potassium bath. 3. Over-volume with anasarca, nonoliguric. Given the marginal blood pressure , I am not going to give any Lasix right now. We will utilize the blood pressure for the dialysis and ultrafiltration. We will follow up. 4. Acidosis, non-anion gap metabolic acidosis secondary to renal failure. 5. Anemia of chronic kidney disease with iron-deficiency anemia. I am going to start the patient on iron and Epogen and we will follow up. 6. Metastatic liver disease. Overall poor prognosis. I had discussion with the patient and with the family, agreed on hospice care. We discussed the case with Dr. Flynn, agreed. Also, we will proceed with the help of Dr. Flynn on sitting up and we will follow up. Case discussed with the patient and verbalized understanding. Discussed with the staff, agreed on the plan, discussed with Dr. Flynn. Time Spent: 60 minutes. WANDER Voice ID: [id number] Report ID: [id number] MTDD
--- NOTE | 2018-11-29 16:50 | CON ---
Date of Consultation: 11/29/2018 Reason For Consultation: Placement of temporary hemodialysis catheter. 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 He received immunotherapy with poor response and incompl ete treatment with that modality. He has had multiple TIAs in the interim, admitted during this hosp italization by Dr. Elmer Flynn, who noted he had elevated BUN and creatinine, as such, Dr. Klarissa salazar had seen the patient and evaluated him and discussed palliative hemodialysis as the patient stated he would like to stay alive as long as possible to spend time with his children and grandchildren. A s such, I was consulted to place a temporary hemodialysis catheter. Past Medical History: As above includes diabetes; neuropathy; liver cancer, metastatic; hepatitis C; multiple TIAs. Social History: He had a positive alcohol history in the past. Denies current drug use. Family History: Positive for hypertension. Allergies: TO TRAMADOL. Home Medications: Include folic acid, Lasix, Dilaudid, lactulose, multivitamin, Zofran, Protonix, Ly javier, Aldactone, vitamin B1. Review of Systems: He has ascites and some mild abdominal pain. Generally, he feels weak and fatigued and has decreased energy. He gets confused at times by his report. Otherwise, review of systems is negative. Physical Examination: Vital Signs: His BMI is 31.4. His blood pressure 114/66, pulse is 81, respiratory rate 16, temperat ure 98.7. General: At the time of my examination, he is awake, alert, oriented. Psychiatric: He is appropriate and conversive. HEENT: He is normocephalic. His sclerae are positive for icterus. He has subungual jaundice. Neck: Supple. There appears to be mild JVD bilaterally and there is a catheter in place in the righ t IJ, which appears to be a Port-A-Cath insertion site. Chest: He is somewhat barrel chested with decreased breath sounds bilaterally. Abdomen: Distended and ascitic with mild global tenderness. No rebound. No guarding. No focal per itonitis. He had a recent paracentesis. The insertion site for the paracentesis is currently not le aking and there is no evidence of ascitic leak. Extremities: No clubbing, cyanosis, or edema. Skin: Warm and dry. Laboratory Data: Reveals a white blood cell count of 4.7, hemoglobin is 8.7, hematocrit of 25.9, chu telet count is 86, neutrophils are 66%. His sodium 130, potassium 6.2, chloride 106, carbon dioxide 16, BUN 121, creatinine 4.5, glucose is 122, uric acid 12.6, calcium 7.9, phos is 6.2. Total bilirub in 1.8, AST 30, ALT 107, alkaline phosphatase is 401. Ammonia is 98. His B12 is greater than 2000. His folate is greater than 20. PTH is 101. He had a chest x-ray performed on 11/28, which is offic ially read as areas of subsegmental atelectasis is present within the left lung base. The right lung appears clear of infiltrate. Heart size is normal. Central venous line is in place. He had a teodora l ultrasound performed as well, which is officially read as medical renal disease with cortical thinn ing. No hydronephrosis, suspicious mass. Urinary bladder was obscured. Assessment And Plan: A 58-year-old male, who presents with metastatic cancer, who has acute renal dy sfunction at this time, necessitating at least temporary hemodialysis. I have explained the risks, b enefits, and alternatives of placement of a temporary hemodialysis catheter including, but not limite d to bleeding, infection, damage to the surrounding tissue, need further operating procedures. The p atient agrees to proceed as indicated. Thank you for this interesting consult. NAREN/CAMI Voice ID: [id number] Report ID: [id number]
--- NOTE | 2018-11-29 17:35 | PN ---
After much discussion with the family and Nephrology, it is felt that a trial of dialysis would be a good idea. Was therefore put into motion. His potassium was elevated at 6.1. Kayexalate was utilized for this. Enzymes were still up. Pneumonias started to go back up as well. We therefore started ba ck on lactulose. He was made a do not intubate and probability of tolerating the dialysis is good. He could be discharged on a hospice program as well. HR/MODL Voice ID: [id number] Report ID: [id number]
[2018-11-29] MEDS: ALBUMIN HUMAN 25% 100 ML IV ONE ×2 (19:22→19:24)
[2018-11-29] MEDS: EPOETIN ALFA 10,000 UNIT/ML VIAL IV SCH (19:24)
--- NOTE | 2018-11-29 23:53 | OP ---
Date of Procedure: 11/29/2018 Surgeon: Layo Munugia MD, Preoperative Diagnosis: Acute renal failure. Postoperative Diagnosis: Acute renal failure. Procedure Performed: Placement of a left femoral temporary hemodialysis catheter using ultrasound gu idance and microintroducer set. Anesthesia: Local 1% lidocaine used without epinephrine. Estimated Blood Loss: 10 cc. Specimen: None. Findings: Dark red nonpulsatile blood returned. Complications: None. Implants: Temporary hemodialysis catheter. Disposition: The patient remained in floor bed in good condition throughout the procedure. Procedure In Detail: After informed consent was obtained, the patient was prepped and draped in the usual sterile fashion. After adequate anesthesia was achieved, an area of the left groin was anesthe tized with 1% lidocaine. I then used ultrasound guidance to cannulate the left femoral vein on the f irst attempt with a microintroducer set. Dark red nonpulsatile blood was returned and the microwire was advanced at this time into the femoral vein under visualization with ultrasound guidance. The ne edle was then removed and a small caty incision was made overlying the insertion site and the microin troducer sheath was introduced at this time. The microwire was removed and the standard wire was the n placed using Seldinger technique through the microintroducer sheath into the left femoral vein. Af ter this was in good anatomic position, sequential dilatation using Seldinger technique was performed and the standard hemodialysis catheter was placed into the femoral vein without evidence of complica tion. Dark red, non nonpulsatile blood was returned from both ports quite easily and flushed quite e asily. The wire out was called at the second time to ensure that the standard and microwires were vinnie th out and on the back table, and the port was packed with heparinized saline super flush. A sterile dressing was then placed over the top. The patient tolerated the procedure well without complicatio n, remained in room throughout the procedure in good condition. All counts were correct at the end o f the case. NAREN/MODL Voice ID: [id number] Report ID: [id number]
[2018-11-30] MEDS: NA CHLORIDE 0.9% 1,000 ML IV SCH ×2 (06:09→17:46)
[2018-11-30] MEDS: PANTOPRAZOLE 40MG TABLET PO SCH (06:34)
[2018-11-30 06:35] LABS: Albumin 3.1 g/dL (3.4-5.0); Phosphorus 7.3 mg/dL (2.5-4.9); Potassium 4.8 mmol/L (3.5-5.1)
[2018-11-30] MEDS: INSULIN -REGULAR HUMAN 50 UNIT/0.5 ML ML SQ SCH ×4 (07:30→21:00)
[2018-11-30 08:22] LABS: Rheumatoid Factor POS (NEG); Rheumatoid Factor Titer 1:4 (32 RF IU/mL)
[2018-11-30] MEDS: LACTULOSE 20 GM/30 ML UCUP PO SCH ×4 (09:00→22:39)
[2018-11-30] MEDS: ALBUMIN HUMAN 25% 100 ML IV SCH ×2 (11:21→22:40)
[2018-11-30] MEDS: MULTIVITAMIN TAB PO SCH (11:27)
[2018-11-30] MEDS: FOLIC ACID 1 MG TABLET PO SCH (11:27)
[2018-11-30] MEDS: OCTREOTIDE ACETATE 100 MCG/ML SQ SCH ×2 (11:28→22:45)
[2018-11-30] MEDS: MIDODRINE HCL 5 MG TABLET PO SCH ×2 (11:30→22:44)
--- NOTE | 2018-11-30 14:03 | RAD REPORT ---
EXAM DESCRIPTION: US - Paracentesis Proc Guidance - 11/30/2018 1:41 pm CLINICAL HISTORY: Liver disease with ascites FINDINGS: The risks, benefits and alternatives to the procedure were explained to the patient and in formed consent obtained. The skin and subcutaneous tissues were anesthetized with Lidocaine. Under sonographic guidance an 8 F rench catheter was placed into the right lower quadrant. 11 liters of bloody fluid removed The patient experienced no immediate complication. IMPRESSION: Paracentesis
[2018-11-30] MEDS: ONDANSETRON 4 MG (ODT) TAB PO PRN ×2 (14:41→22:39)
[2018-11-30 16:17] LABS: Absolute Lymphocytes (CBC) 0.5 K/uL (0.7-4.9); Absolute Monocytes 0.8 K/uL (0.1-1.3); Absolute Neutrophil 3.2 K/uL (1.8-8.0); Basophils % 0.4 % (0-1.3); Eosinophils % 3.3 % (0-4.4); MPV 10.5 fL (7.6-11.3); Monocytes % 17.7 % (3.3-12.3); RBC Red Blood Cell Count 2.29 M/uL (4.33-5.43)
[2018-11-30 16:20] LABS: Protime INR 1.21
[2018-11-30 17:13] LABS: Anisocytosis 1+; Blood Morphology Comment NOTED (NOT SEEN); Macrocytosis 1+; Platelet Estimate DECR; Platelets, Giant NOTED; Polychromasia SLIGHT; Target Cells FEW
[2018-11-30] MEDS: HYDROMORPHONE ORAL 2 MG TAB PO PRN (22:39)
[2018-12-01 01:01] VITALS: O2SAT 98
[2018-12-01] MEDS: EPOETIN ALFA 10,000 UNIT/ML VIAL IV SCH (01:38)
[2018-12-01] MEDS: NA CHLORIDE 0.9% 1,000 ML IV SCH ×2 (02:00→05:40)
--- NOTE | 2018-12-01 04:21 | PN ---
Date of Progress Note: 11/30/2018 Chief Complaint: Metastatic liver disease, altered mental status, severe fluid overload, encephalopa thy, hepatorenal syndrome, acute kidney injury, is oliguric. The patient was started on dialysis. The patient is undergoing paracentesis for tense ascites. The patient was found to have hemorrhagic ascitic fluid and hemoglobin level was reevaluated. INR is wit hin acceptable ranges. There is no significant coagulopathy. The patient is undergoing dialysis to obtain metabolic clearance and ultrafiltration. Review of Systems: The patient is confused. Cannot provide review of systems. Physical Examination: LUNGS: Crackles bilaterally present. HEART: S1, S2. Systolic murmur 2/6 at the left lower sternal border. ABDOMEN: Ascites tense present. EXTREMITIES: Edema present in both legs. Laboratory Data: Hemoglobin 8.1, WBC 4.6, platelet count [id number]. Sodium 135, potassium 4.8, chloride 104, CO2 of 18, BUN , creatinine 4.46, calcium 7.8 and phosphorus 7.3. Yesterday blood wo rk showed potassium of 6.2, sodium 130, chloride 106, CO2 of 15, BUN 121, creatinine 4.95, calcium 7. 9, uric acid 12.6, phosphorus 6.2. Impression And Plan: 1.Acute kidney injury, severe secondary to multiple causes including hepatorenal syndrome complicate d by acute tubular necrosis. The patient has tense ascites. The patient will continue midodrine as needed for blood pressure support. Paracentesis was done today and workup is pending. The patient h as metastatic cancer. Further recommendations from primary team. 2.Encephalopathy, altered mental status. The patient was found to have severe azotemia and started on dialysis. 3.Hyperkalemia, metabolic acidosis, responding to dialysis. Continue to adjust dialysis parameters. 4.Fluid overload, edema. Ultrafiltration will be done as needed. Monitor blood pressure closely, a djust ultrafiltration goal according to blood pressure. 5.The patient developed acute kidney injury although there is no evidence of obstructive uropathy. The patient was found to have echogenic kidneys 12.1 and 10.7, left and right respectively. There is a renal cyst present. EB/MODL Voice ID: [id number] Report ID: [id number]
[2018-12-01] MEDS: PANTOPRAZOLE 40MG TABLET PO SCH (05:40)
[2018-12-01 06:04] LABS: Absolute Lymphocytes (CBC) 0.5 K/uL (0.7-4.9); Absolute Monocytes 0.7 K/uL (0.1-1.3); Absolute Neutrophil 2.5 K/uL (1.8-8.0); Basophils % 1.2 % (0-1.3); Hematocrit 23.1 % (39.6-49.0); Lymphocytes % 13.4 % (15.3-44.8); MPV 11.6 fL (7.6-11.3); Monocytes % 17.4 % (3.3-12.3); RBC Red Blood Cell Count 2.22 M/uL (4.33-5.43)
[2018-12-01 06:20] LABS: Albumin 2.8 g/dL (3.4-5.0); Phosphorus 4.4 mg/dL (2.5-4.9); Potassium 4.7 mmol/L (3.5-5.1); Protein, Total 5.8 g/dL (6.4-8.2)
[2018-12-01] MEDS: CALCIUM CARBONATE CHEW 500MG TAB PO SCH ×2 (07:30→11:30)
[2018-12-01] MEDS: INSULIN -REGULAR HUMAN 50 UNIT/0.5 ML ML SQ SCH ×2 (07:30→11:30)
[2018-12-01] MEDS: FOLIC ACID 1 MG TABLET PO SCH (09:00)
[2018-12-01] MEDS: MULTIVITAMIN TAB PO SCH (09:00)
[2018-12-01] MEDS: LACTULOSE 20 GM/30 ML UCUP PO SCH ×2 (09:00→13:00)
[2018-12-01] MEDS: MIDODRINE HCL 5 MG TABLET PO SCH (09:00)
[2018-12-01] MEDS ORDERED: LACTULOSE 20 GM/30 ML UCUP PR ONE (09:28)
[2018-12-01] MEDS ORDERED: LORazepam 2 MG/ML VIAL IV PRN (10:53)
[2018-12-01] MEDS: OCTREOTIDE ACETATE 100 MCG/ML SQ SCH (11:33)
[2018-12-01] MEDS: ALBUMIN HUMAN 25% 100 ML IV SCH (11:33)
[2018-12-01] MEDS ORDERED: NA CHLORIDE 0.9% 1,000 ML IV SCH (12:00)
--- NOTE | 2018-12-01 13:58 | PN ---
Date of Progress Note: 11/30/2018 The patient continues to have marked ascites. He underwent paracentesis, 11 L were removed. He is s cheduled for dialysis later on the day; however, his H and H has also dropped some and there has been some blood-tinged ascites as of late and general condition continues to deteriorate somewhat. HR/MODL Voice ID: [id number] Report ID: [id number]
--- NOTE | 2018-12-01 16:04 | PN ---
Date of Progress Note: 12/01/2018 Subjective: The patient has 2 session of dialysis. The patient has paracentesis, managed to remove 11 L. Physical Examination: Vital Signs: Blood pressure 106/54, pulse of 83. Chest: Faint crackles bilateral. Heart: S1 and S2. Systolic murmur. Abdomen: Ascites. Extremities: No edema. Neurologic: Confused. Laboratory Data: WBC 3.7, H and H 8/23.1, platelets 70. Sodium 138, potassium 4.7, bicarb 24, BUN 6 1, creatinine 3.3, calcium 7.5, phosphorus 4.4. LFTs elevated. Ammonia 159 yesterday. Current Medications: The patient on its include; midodrine 5 mg b.i.d., Epogen, calcium carbonate wi th each meal, octreotide, normal saline, pantoprazole. Assessment And Plan: 1.Acute kidney injury secondary to hepatorenal nonoliguric currently. I am going to decrease IV flu id. We will arrange for dialysis tomorrow. I do not see the need for the dialysis today and we will follow up patient overall poor prognosis. I had long discussion with the family and Dr. Rina hillman follow up. We will place the patient on sodium module. 2.Hypertension, currently hypotension. We will use midodrine and sodium module for the dialysis. 3.Hepatic encephalopathy as by primary. 4.Ascites secondary to metastatic liver disease. Continue palliative support. WANDER Voice ID: [id number] Report ID: [id number]
[2018-12-01] MEDS ORDERED: HEPARIN 500 UNIT/5 ML SYR IV ONE (17:37)
[2018-12-01 18:32] VITALS: BP 102/60; TEMP 98.5
[2018-12-01 20:37] LABS: Hepatitis C Virus RNA (PCR)log 4.22 log IU/mL
--- NOTE | 2018-12-01 23:07 | PN ---
Date of Progress Note: 12/01/2018 The patient's condition continues to deteriorate. After much discussion with the family, it was felt he should be placed in a comfort only scenario at home and therefore this was done and the patient w as discharged in poor condition for hospice care. HR/MODL Voice ID: [id number] Report ID: [id number]
[2018-12-04 03:23] LABS: HBsAG Nonreactive (Nonreactive)
[2018-12-04 22:54] LABS: P-ANCA Anti-Myeloperoxidase Ab <1.0 AI (<1.0)
[2018-12-05 04:58] LABS: Albumin, (SPE) 2.9 g/dL (3.8-4.8); Alpha-1-Globulins 0.4 g/dL (0.2-0.3); Alpha-2-Globulins 0.5 g/dL (0.5-0.9); Gamma Globulins 1.4 g/dL (0.8-1.7); INTERPRETATION REPORT
== END 2018-12-01 18:53 | disposition hospice, home (50) | DRG 435 ==
LOC: 4TH 09:15 → OBSVTOIN 11-29 08:40
PROVIDERS: ADMIT Family Medicine; ATTEND Family Medicine
PROC: 06HN33Z Insertion of Infusion Device into Left Femoral Vein, Percutaneous Approach (ICD-10-PCS; principal; 2018-11-29)
PROC: B54CZZA Ultrasonography of Left Lower Extremity Veins, Guidance (ICD-10-PCS; 2018-11-29)
PROC: 5A1D70Z Performance of Urinary Filtration, Intermittent, Less than 6 Hours Per Day (ICD-10-PCS; 2018-11-29)
PROC: 5A1D70Z Performance of Urinary Filtration, Intermittent, Less than 6 Hours Per Day (ICD-10-PCS; 2018-11-30)
PROC: 0W9G3ZZ Drainage of Peritoneal Cavity, Percutaneous Approach (ICD-10-PCS; 2018-11-30)
DX: C22.8 Malignant neoplasm of liver, primary, unspecified as to type (principal); N17.0 Acute kidney failure with tubular necrosis; K76.7 Hepatorenal syndrome; C78.6 Secondary malignant neoplasm of retroperitoneum and peritoneum; C79.70 Secondary malignant neoplasm of unspecified adrenal gland; K76.6 Portal hypertension; R18.8 Other ascites; C79.00 Secondary malignant neoplasm of unspecified kidney and renal pelvis; N17.9 Acute kidney failure, unspecified; E87.2 Acidosis; B18.2 Chronic viral hepatitis C; E11.40 Type 2 diabetes mellitus with diabetic neuropathy, unspecified; Z86.73 Personal history of transient ischemic attack (TIA), and cerebral infarction without residual deficits; K72.90 Hepatic failure, unspecified without coma; K74.60 Unspecified cirrhosis of liver; D69.6 Thrombocytopenia, unspecified; E87.5 Hyperkalemia; D50.9 Iron deficiency anemia, unspecified; R60.1 Generalized edema; E87.70 Fluid overload, unspecified; I95.9 Hypotension, unspecified
CPT/HCPCS: 36415; 49083; 71045; 76770; 80048; 80053; 80069; 81003; 82140; 82248; 82553; 82570; 82607; 82728; 82746; 82962; 83520; 83540; 83970; 84100; 84156; 84165; 84300; 84443; 84466; 84550; 85025; 85044; 85610; 86021; 86160; 86317; 86430; 86704; 86706; 87340; 87522; 90935; 94640; G0378; J0610; J1642; J1644; J2354; J7030; P9047; Q4081